=== PATIENT | male | born 1965 | race Caucasian/White ===

== ENCOUNTER → 2020-01-13 08:58 | Outpatient (CLI) | payer OTHER, SELFPAY ==
--- NOTE | 2020-01-13 09:06 | RAD_ITS ---
STUDY: X-RAY - LEFT KNEE REASON FOR EXAM: Male, 54 years old. left knee pain x 3 days, no known injury TECHNIQUE: 3 view(s) of the knee. COMPARISON: None. FINDINGS: Patient has undergone previous ACL repair, surgical hardware in the distal femur and proximal tibia free of complication. Normal visualized distal femur. Normal visualized proximal tibia and fibula. Normal proximal tibiofibular articulation. There is mild degenerative arthrosis of the medial femorotibial compartment. There is mild degenerative arthrosis of the lateral femorotibial compartment. There is mild degenerative arthrosis of the patellofemoral articulation. No demonstrated effusion there is chondrocalcinosis noted in both the medial and lateral compartments. The soft tissue structures are unremarkable. RAD/Knee 4 or More Views IMPRESSION: Tricompartmental arthrosis with chondrocalcinosis. No demonstrated fracture or suspicious osseous lesion Hardware in the distal femur and proximal tibia from previous ACL repair free of complication Electronically Signed: David Roblero MD at 9:24 EDT , Service support ,
== END ==
PROVIDERS: PCP Family Medicine; Referring Provider Family Medicine; Visit Provider Family Medicine
DX: Z00.00 Encounter for general adult medical examination without abnormal findings (principal); M25.562 Pain in left knee
CPT/HCPCS: 73564

== ENCOUNTER 2020-03-08 05:29 | Day surgery (SDC) | payer OTHER, SELFPAY ==
[2020-03-08] VITALS (8 sets, daily range): BP systolic 128–185; BP diastolic 83–119; PULSE 70–93; RESP 16; TEMP 36.3–36.7; O2SAT 94–100
--- NOTE | 2020-03-08 05:59 | PCM.HP.STD ---
Problem List (1) Screening for intestinal cancer Status: Acute History of Present Illness Date of Admission: 03/08/20 The patient is a 54 year old M who presents for screening colonoscopy today. He has never had a previous colonoscopy. The only previous abdominal surgery that he has had was a remote appendectomy. He otherwise he states he enjoys good health except for degenerative joint disease. He denies cardiac and pulmonary or renal disease. Denies DVT. Denies family history of colon cancer. No abdominal pain no bright red blood per rectum or melena Past Medical History Allergies No Known Allergies Allergy (Verified 02/26/20 11:03) Home Medications: Ambulatory Orders Medication Instructions Recorded NK 02/26/20 Smoking Status: Never smoker Tobacco Use: Chew Review of Systems Constitutional: Denies: Fever Cardiovascular: Denies: Chest Pain Respiratory: Denies: Shortness of Breath Gastrointestinal: Denies: Abdominal Pain, Melena Endocrine: Denies: Change in Body Habitus VTE Information - Inpt Only VTE Present on Admission: No Patient Problems: Active and Suspected Problems Screening for intestinal cancer (Acute) - Physical Exam Vitals/I&O's: Vital Signs Temp Pulse Resp BP Pulse Ox 97.6 F L 73 16 152/103 H 99 03/08/20 05:47 03/08/20 05:47 03/08/20 05:47 03/08/20 05:47 03/08/20 05:47 Oxygen Delivery Method Room Air General: Alert, Oriented x3, Cooperative, No apparent distress Oral: Moist Mucosa Lungs: Clear to auscultation, Normal air movement Cardiovascular: Regular rate, Regular Rhythm Abdomen: Bowel Sounds Present, Soft, Non Tender Extremities: No Calf Tenderness Psych/Mental Status: Normal Affect Assessment/Plan All Active Problems Screening for intestinal cancer (Acute) Lumbosacral strain (Acute) I propose for the patient a screening colonoscopy with possible biopsy or polypectomy is indicated. He is aware of the technique, benefit, risks, alternatives. He has had an opportunity to ask and have questions answered. He presents via open access today. We will proceed at his discretion. Seferino Richter M.D., F.A.C.S. Procedure Criteria Procedure Type: Elective COVID Risk Discussion: The surgeon/proceduralist and patient have discussed in detail the risk of exposure to and/or potential harm posed by the COVID-19 virus with having a surgery/procedure at this time versus the risk of delaying the surgery/procedure. It is not possible to know either the risk of delaying the surgery or procedure or chance of getting an infection with perfect accuracy, but a joint decision was made between the patient and the surgeon/proceduralist to proceed at this time with the scheduled surgery/procedure as indicated on the consent form.
[2020-03-08] MEDS: Lactated Ringers 1,000 ML 100 ML IV (06:12)
--- NOTE | 2020-03-08 06:30 | COLBX_PTH ---
PATIENT: JONAS KENT LOC: EN U#:[id number] AGE/SX: 54/M ROOM: RE03/08/[address]: Dr. Seferino Richter MD : 1965 BED: DIS: 03/08/2020 SPEC #: [id number] RECD: 03/08/20 10:41 STATUS: BETSY FLAVIO #: [id number] SANJUANITA: 03/08/20 06:[address]: Seferino Richter DEPT: SURGICAL PATHOLOGY RECD BY: Dwight Padilla ENTERED: 03/08/20 11:28 SP TYPE: COLON BX OTHR DR: Dr. Tate Herrera MD Tissues: Sigmoid colon biopsy Procedures: Surgery Specimen Level IV HEADER OPERATION: Colonoscopy - open access (MOD) PRE-OP DIAGNOSIS: Screening TISSUE SUBMITTED: Distal sigmoid polyps biopsy MICROSCOPIC DIAGNOSIS Distal sigmoid polyps, biopsy: Fragments of hyperplastic polyp. SHARMIN:alecia 03/09/20 MICROSCOPIC DESCRIPTION Slides are reviewed. GROSS DESCRIPTION Received in fixative is one container labeled with the patient's name and designated distal sigmoid polyp biopsy. The specimen consists of multiple irregular fragments of light frost soft tissue that in aggregate measure 1.5 x 0.3 x 0.1 cm. The specimen is totally submitted in one cassette. / SJ:alecia 03/08/20 TC:1 CPT: 22057
--- NOTE | 2020-03-08 06:52 | OP.CCLET_ITS ---
03/08/2020 Bro Herrera [address] [place] [address] Re : Colonoscopy procedure for Siva Lund Dear Dr. Herrera This procedure was performed on Sunday, March 08, 2020. My impressions and recommendations are as follows: Impressions : - Hemorrhoids found on perianal exam. - Two 3 to 5 mm polyps in the distal sigmoid colon, removed with a cold biopsy forceps. Resected and retrieved. - Diverticulosis in the sigmoid colon. Recommendations : - Discharge patient to home. - Resume previous diet. - Continue present medications. - Repeat colonoscopy in 5 years for surveillance based on pathology results. - Telephone my office for pathology results in 1 week. My findings are described in the full procedure note, which is enclosed. If I can be of further assistance, please feel free to contact me at Doctor phone number(s): Work: . Sincerely, Seferino Richter MD 03/08/2020 6:52:07 AM This report has been signed electronically.
--- NOTE | 2020-03-08 06:52 | OP.COLON_ITS ---
Patient Name: Siva Lund Procedure Date: 03/08/2020 6:10 AM Date of : 1965 Age: 54 Procedure: Colonoscopy Indications: Screening for colorectal malignant neoplasm Providers: Seferino Richter MD Referring MD: Bro Herrera Medicines: Midazolam 4 mg IV, Meperidine 100 mg IV Patient Profile: Last Colonoscopy: none. The patient's first colonoscopy is today. Complications: No immediate complications. Procedure: Pre-Anesthesia Assessment: - Prior to the procedure, a History and Physical was performed, and patient medications and allergies were reviewed. The patient's tolerance of previous anesthesia was also reviewed. The risks and benefits of the procedure and the sedation options and risks were discussed with the patient. All questions were answered, and informed consent was obtained. Prior Anticoagulants: The patient has taken no previous anticoagulant or antiplatelet agents. ASA Grade Assessment: II - A patient with mild systemic disease. After reviewing the risks and benefits, the patient was deemed in satisfactory condition to undergo the procedure. After I obtained informed consent, the scope was passed under direct vision. Throughout the procedure, the patient's blood pressure, pulse, and oxygen saturations were monitored continuously. The adult colonoscope was introduced through the anus and advanced to the cecum, identified by appendiceal orifice and ileocecal valve. The colonoscopy was performed without difficulty. The patient tolerated the procedure well. The quality of the bowel preparation was good. The ileocecal valve and the appendiceal orifice were photographed. Moderate Sedation: Moderate (conscious) sedation was personally administered by the endoscopist. The following parameters were monitored: oxygen saturation, heart rate, blood pressure, and response to care. Total physician intraservice time was 15 minutes. Scope In: 6:31:25 AM Scope Withdrawal Time 0 hours 9 minutes 44 seconds Scope Out: 6:46:00 AM Total Procedure Duration Time 0 hours 14 minutes 35 seconds Findings: Hemorrhoids were found on perianal exam. Normal prostate Two sessile polyps were found in the distal sigmoid colon. The polyps were 3 to 5 mm in size. These polyps were removed with a cold biopsy forceps. Resection and retrieval were complete. A few diverticula were found in the sigmoid colon. Impression: - Hemorrhoids found on perianal exam. - Two 3 to 5 mm polyps in the distal sigmoid colon, removed with a cold biopsy forceps. Resected and retrieved. - Diverticulosis in the sigmoid colon. Recommendation: - Discharge patient to home. - Resume previous diet. - Continue present medications. - Repeat colonoscopy in 5 years for surveillance based on pathology results. - Telephone my office for pathology results in 1 week. Procedure Code(s): --- Professional --- 60663, Colonoscopy, flexible; with biopsy, single or multiple 20143, 59, Moderate sedation services provided by the same physician or other qualified health child care assistant performing the diagnostic or therapeutic service that the sedation supports, requiring the presence of an independent trained observer to assist in the monitoring of the patient's level of consciousness and physiological status; initial 15 minutes of intraservice time, patient age 5 years or older Diagnosis Code(s): --- Professional --- Z12.11, Encounter for screening for malignant neoplasm of colon K64.9, Unspecified hemorrhoids D12.5, Benign neoplasm of sigmoid colon K57.30, Diverticulosis of large intestine without perforation or abscess without bleeding CPT copyright 2017 [employer]. All rights reserved. The codes documented in this report are preliminary and upon medical biller coder review may be revised to meet current compliance requirements. Seferino Richter MD 03/08/2020 6:52:07 AM This report has been signed electronically. Number of Addenda: 0 Note Initiated On: 03/08/2020 6:10 AM
== END 2020-03-08 07:40 | disposition home or self-care (01) ==
LOC: EN 05:30 → AC 05:31
PROVIDERS: Anesthesiology; PCP Family Medicine; Referring Provider Family Medicine; Visit Provider Surgery
PROC: 0DJD8ZZ Inspection of Lower Intestinal Tract, Via Natural or Artificial Opening Endoscopic (ICD-10-PCS; CPT 45378; principal; 2020-03-08 06:25)
DX: Z12.11 Encounter for screening for malignant neoplasm of colon (principal); Z11.59 Encounter for screening for other viral diseases; M19.90 Unspecified osteoarthritis, unspecified site; F17.220 Nicotine dependence, chewing tobacco, uncomplicated; K57.30 Diverticulosis of large intestine without perforation or abscess without bleeding; K64.9 Unspecified hemorrhoids; K63.5 Polyp of colon
CPT/HCPCS: 45380; 87635; 88305; 94799; 99152; 99153; J7120; U0003

== ENCOUNTER → 2020-03-15 09:40 | Outpatient (CLI) | payer OTHER, SELFPAY ==
[2020-03-15 12:31] LABS: Vitamin D,25 Hydroxy 29.9 ng/mL
[2020-03-15 12:49] LABS: Anion Gap 4 (5-15); BUN 14 mg/dL (7-18); BUN/Creat Ratio 16.9 RATIO (10-20); Calcium,Total 8.9 mg/dL (8.5-10.1); Chloride 109 mmol/L (98-107); Cholesterol 222 mg/dL (200); Creatinine, Serum 0.83 mg/dL (0.70-1.30); EST Glomerular Filtration Rate 104 mL/min (>60); Est Glom Filt Rate - Afr Amer 125 mL/min (>60); Glucose 95 mg/dL (74-106); High Density Lipoprotein 49 mg/dL; Potassium 4.3 mmol/L (3.5-5.1); Sodium Level 139 mmol/L (136-145); Thyroid Stim Hormone (TSH) 2.22 uIU/mL (0.358-3.74); Triglycerides 185 mg/dL; Very Low Density Lipoprotein 37 mg/dL (5-40)
== END ==
PROVIDERS: PCP Family Medicine; Referring Provider Family Medicine; Visit Provider Family Medicine
DX: I10 Essential (primary) hypertension (principal); R53.83 Other fatigue
CPT/HCPCS: 36415; 80048; 80061; 82306; 84403; 84443

== ENCOUNTER → 2020-03-25 15:48 | Outpatient (CLI) | payer OTHER, SELFPAY ==
--- NOTE | 2020-03-25 15:51 | RAD_ITS ---
STUDY: X-RAY - LEFT FOOT CLINICAL: Male, 54 years old. Hallux valgus bunion bilateral TECHNIQUE: 3 view(s) of the foot. COMPARISON: None. FINDINGS: Normal talus, calcaneus, and tarsal bones. Normal visualized subtalar, talonavicular, calcaneocuboid, tarsal and tarsometatarsal articulations. Normal metatarsi. There is degenerative arthrosis of the metatarsophalangeal joint of the hallux with a hallux valgus deformity. Normal tibial and fibular sesamoid bones. Normal interphalangeal joint of the great toe. Normal phalanges of the great toe. Normal second through fifth metatarsophalangeal joints. Normal interphalangeal joints and phalanges of the lesser toes. The soft tissue structures are unremarkable. RAD/Foot min 3 Views IMPRESSION: Hallux valgus deformity. Electronically Signed: Amish Gaffney, at 10:13 EDT , Service support ,
--- NOTE | 2020-03-25 15:51 | RAD_ITS ---
STUDY: X-RAY - RIGHT FOOT CLINICAL: Male, 54 years old. Hallux valgus bunion bilateral TECHNIQUE: 3 view(s) of the foot. COMPARISON: None. FINDINGS: Small plantar spur. Normal visualized subtalar, talonavicular, calcaneocuboid, tarsal and tarsometatarsal articulations. Normal metatarsi. There is a hallux valgus deformity. There is a bipartite tibial sesamoid. Normal interphalangeal joint of the great toe. Normal phalanges of the great toe. Normal second through fifth metatarsophalangeal joints. Normal interphalangeal joints and phalanges of the lesser toes. The soft tissue structures are unremarkable. RAD/Foot min 3 Views IMPRESSION: Hallux valgus deformity. Small plantar spur. Electronically Signed: Amish Gaffney, at 10:12 EDT , Service support ,
== END ==
PROVIDERS: PCP Family Medicine; Referring Provider Podiatrist; Visit Provider Podiatrist
DX: M20.11 Hallux valgus (acquired), right foot (principal); M20.12 Hallux valgus (acquired), left foot
CPT/HCPCS: 73630

== ENCOUNTER 2020-04-15 10:53 | Emergency (ER) | payer OTHER, SELFPAY ==
[2020-04-15 10:55] VITALS: BP 148/92; PULSE 82; RESP 16; TEMP 36.3; O2SAT 97; BMI 36.1
--- NOTE | 2020-04-15 11:07 | ED.VIS.GEN ---
History of Present Illness Chief Complaint: Flank Pain Informant: Patient Onset: Days - 6 days Context: Gradual Onset Timing: Waxes and wanes Current Severity: Mild Maximum Severity: Moderate Narrative: She presents with a 6-day history of right flank pain. He states it started last Sunday. He had been on a long car ride to [place]. Pain worsened Sunday and he laid in bed Sunday and Sunday. He states seem to be better when he was laying on his right side. He thought pain was better yesterday but worsened again today. He denies nausea or vomiting. He states his urine did look somewhat cloudy. No dysuria or obvious hematuria. He thought he was constipated and took some MiraLAX and Dulcolax. After multiple bowel movements pain was still worse this morning. Patient denies known history of kidney stones. He has had a prior appendectomy. Past Medical History - Allergies and Home Meds Allergies/Adverse Reactions: Allergies No Known Allergies Allergy (Verified 04/15/20 10:54) Primary Care Physician: Bro Herrera MD [Primary Care Provider] - Prior records reviewed: Yes Surgical History: appendectomy Lives: Spouse/ Significant Other Smoking Status: Never smoker Review of Systems General: Denies: Chills, Fever Eyes: Denies: Visual changes - bilaterally ENT: Denies: Bilateral ear pain Cardiovascular: Denies: Chest pain Respiratory: Denies: Dyspnea, Cough Gastrointestinal: Reports: Abdominal pain. Denies: Nausea, Vomiting, Diarrhea Genitourinary: Denies: Dysuria Musculoskeletal: Reports: Back pain - Right flank. Denies: Extremity Pain Skin: Denies: Rash Hematologic: Denies: Easy bruising, Easy bleeding Allergy: Denies: Uticaria Physical Exam Vital Signs/Narrative: Vital Signs Temp Pulse Resp BP Pulse Ox 04/15/20 10:55 97.4 F L 82 16 148/92 H 97 Inital Vital Signs reviewed: Yes General: Well nourished, Well developed Head: Normocephalic ENT: Moist mucous membranes Neck: Supple Cardiovascular: Regular rate, Regular rhythm Respiratory: No distress, CTA bilaterally Abdomen: Soft, Normal bowel sounds, Tender Back: Nontender. Negative for: CVA tenderness Skin: Normal color Neurological: Alert, Oriented x3 Psychological: Normal affect Diagnostic/Tx/Re-eval Impressions Abdomen/Pelvis CT 04/15/20 11:27 IMPRESSION: Right basilar atelectasis and/or infiltration. Low-level density seen within the gallbladder lumen suggestive of either sludge or gallstones. Correlation with ultrasound is recommended. Coronary artery calcification. Electronically Signed: Amish Gaffney, at 12:13 EDT , Service support , 04/15/20 11:27 Abdomen/Pelvis without Cont [CT] Stat Laboratory Results 04/15/20 04/15/20 04/15/20 11:14 11:14 12:50 WBC 8.1 RBC 5.53 Hgb 16.4 Hct 49.6 MCV 89.7 MCH 29.7 MCHC 33.1 RDW Std Deviation 45.8 H RDW Coeff of Jhonatan 13.9 Plt Count 251 MPV 10.1 Immature Gran % (Auto) 0.500 Neut % (Auto) 65.7 Lymph % (Auto) 26.3 Forest % (Auto) 6.7 Eos % (Auto) 0.6 Baso % (Auto) 0.2 Absolute Neuts (auto) 5.3 Absolute Lymphs (auto) 2.12 Nucleated RBC % 0 Sodium 139 Potassium 4.2 Chloride 105 Carbon Dioxide 29.0 Anion Gap 5 BUN 19 H Creatinine 0.99 Estim Creat Clear Calc 87.28 Est GFR (MDRD) Af Amer 102 Est GFR (MDRD) Non-Af 84 BUN/Creatinine Ratio 19.2 Glucose 115 H Calcium 9.6 Urine Color Yellow Urine Clarity Clear Urine pH 5.0 Ur Specific Douglas 1.020 Urine Protein 15 H Urine Glucose (UA) Normal Urine Ketones Negative Urine Occult Blood Negative Urine Nitrite Negative Urine Bilirubin Negative Urine Urobilinogen Normal Ur Leukocyte Esterase 25 H Urine RBC 0 SEEN Urine WBC 0-5 SEEN Ur Squamous Epith Cells 0-5 SEEN Urine Bacteria 1+ Urine Mucus 0 SEEN - Medical Decision Making Was given Toradol here. He did not want anything stronger as he was driving himself. Test results are discussed with patient and . There is some gallbladder sludge noted, however the patient's location of pain and presentation is not consistent with gallbladder disease. Pain is in the right lateral lower flank region. It is changed with movement and better when lying still. I think this is likely musculoskeletal in nature. Patient will be given prednisone and naproxen as well as Flexeril. He will follow-up with PCP if not improving. ED Disposition - Plan for ED Patient: Disposition: Home or Assisted Living Diagnosis: Flank pain Instructions: ED Flank Pain Uncertain Cause Prescriptions: Prednisone [Deltasone] 40 mg PO DAILY #10 tab Transmission Status: Pending to [facility] cycloBENZAPRine HCl [Flexeril] 10 mg PO TID PRN #20 tab PRN Reason: Muscle Spasm Transmission Status: Pending to [facility] Naproxen [Naprosyn] 500 mg PO BID PRN PRN #20 tab PRN Reason: Pain Score 4-10/10 Transmission Status: Pending to [facility] Referrals: Bro Herrera MD [Primary Care Provider] - 1 Week if not improving
[2020-04-15] MEDS: Ketorolac 30 MG/ML Syringe IV (11:17)
[2020-04-15] MEDS: 0.9% Normal Saline 1,000 ML 150 ML IV (11:20)
[2020-04-15 11:23] LABS: Absolute Lymphocyte Count 2.12 X10^3/uL (0.83-4.51); Absolute Neutrophil Count 5.3 X10^3/uL (2.0-7.7); Basophil# 0.02 X10^3/uL; Basophil% 0.2 % (0-1); Eosinophil# 0.05 X10^3/uL; Eosinophils% 0.6 % (0-5); Hematocrit 49.6 % (40-54); Hemoglobin 16.4 g/dL (13.0-16.5); Lymphocyte # 2.12 X10^3/ul (4.0); Lymphocyte % 26.3 % (19-41); Mean Corp Hgb Conc 33.1 g/dL (32-36); Mean Corpuscular Hgb 29.7 pg (27.0-32.0); Mean Corpuscular Volume 89.7 fL (80-94); Mean Platelet Vol. 10.1 fl (6.2-12.0); Monocyte# 0.54 X10^3/uL; Monocyte% 6.7 % (0-10); NRBC Flagged by Analyzer 0 % (0-5); Neutrophil # 5.29 X10^3/uL (2.7-7.7); Neutrophil % 65.7 % (47-70); Platelet Count 251 K/mm3 (150-450); RBC Distribution Width CV 13.9 % (11.6-14.6); RBC Distribution Width SD 45.8 fl (35.1-43.9); Red Blood Count 5.53 M/mm3 (4.6-6.2); White Blood Count 8.1 K/mm3 (4.4-11.0)
--- NOTE | 2020-04-15 11:27 | CT_ITS ---
STUDY: CT ABDOMEN AND PELVIS WITHOUT CONTRAST REASON FOR EXAM: Male, 54 years old. RIGHT FLANK PAIN RADIATION DOSAGE (If Supplied By Facility): CTDIvol = ( 19.58 ) mGy, DLP = ( 1086.03 ) mGycm TECHNIQUE: Transaxial images were obtained from the dome of the diaphragm to the symphysis pubis without oral contrast, and without intravenous contrast. Sagittal and coronal images were reconstructed. Individualized dose optimization techniques were used for this CT. COMPARISON: None. FINDINGS: Calcified bilateral hilar lymph nodes. Coronary artery calcifications. Increased linear markings at the right lung base suggestive of a right basilar infiltration and/or scarring. Increased densities within the gallbladder lumen suggestive of either small gallstones or sludge. Correlation with ultrasound is recommended. Normal spleen. Normal pancreas. Normal bilateral adrenal glands. Normal right kidney. Normal left kidney. Normal visualized stomach. Normal small intestine. Normal colon. There are surgical clips in the region of the appendix consistent with a prior appendectomy. There is scattered atherosclerotic calcification of the abdominal aorta, without a demonstrated aneurysm. Normal inferior vena cava. Normal retroperitoneum. Normal urinary bladder. There is a small umbilical hernia containing fat. There are mild degenerative changes of the visualized lumbar spine. CT/Abdomen/Pelvis without Cont IMPRESSION: Right basilar atelectasis and/or infiltration. Low-level density seen within the gallbladder lumen suggestive of either sludge or gallstones. Correlation with ultrasound is recommended. Coronary artery calcification. Electronically Signed: Amish Gaffney, at 12:13 EDT , Service support ,
[2020-04-15 11:32] LABS: Anion Gap 5 (5-15); BUN 19 mg/dL (7-18); BUN/Creat Ratio 19.2 RATIO (10-20); Calcium,Total 9.6 mg/dL (8.5-10.1); Chloride 105 mmol/L (98-107); Creatinine, Serum 0.99 mg/dL (0.70-1.30); EST Glomerular Filtration Rate 84 mL/min (>60); Est Glom Filt Rate - Afr Amer 102 mL/min (>60); Estimated Creatinine Clearance 87.28 ml/min; Glucose 115 mg/dL (74-106); Potassium 4.2 mmol/L (3.5-5.1); Sodium Level 139 mmol/L (136-145)
[2020-04-15 13:00] VITALS: BP 159/94; PULSE 58; RESP 16; O2SAT 98
[2020-04-15 13:01] LABS: Mucous, Urine 0 SEEN /hpf (<or=2+); Red Blood Cells-Urine 0 SEEN /hpf (0-5)
[2020-04-15 13:09] LABS: Color, Urine Yellow (Yellow); Glucose, Dipstick Normal (Normal); Ketone-Dipstick Negative (Negative); Leukocyte Esterase-Dipstick 25 /ul (Negative); Nitrite-Dipstick Negative (Negative); Occult Blood-Urine Negative /ul (Negative); Protein-Dipstick 15 mg/dl (Negative); Urine Bilirubin Dipstick Negative (Negative); Urine Clarity Clear (Clear); Urine Urobilinogen Normal (Normal)
[2020-04-15 13:20] LABS: Bacteria 1+ /hpf (None Seen); Squamous Epithelial Cells - UA 0-5 SEEN /hpf (0-5); White Blood Cells 0-5 SEEN /hpf (0-5)
[2020-04-15 13:55] VITALS: BP 159/94; PULSE 58; RESP 16; O2SAT 98
== END 2020-04-15 13:55 | disposition home or self-care (01) ==
PROVIDERS: Emergency Provider Emergency Medicine; PCP Family Medicine
DX: R10.9 Unspecified abdominal pain (principal)
CPT/HCPCS: 74176; 80048; 81001; 85025; 96374; 99283; J7030; A4216

== ENCOUNTER → 2020-05-03 06:40 | Outpatient (CLI) | payer OTHER, SELFPAY ==
[2020-04-15 10:55] VITALS: BMI 36.1
--- NOTE | 2020-05-03 17:41 | STRESSREP_ITS ---
Stress Test Report Date: 05/03/2020 Procedure: Pharmacologic stress nuclear imaging study Indications: Dyspnea Consent: Per the patient Procedure: The patient underwent pharmacologic (Regadenoson) evaluation with a peak heart rate of 108 beats per minute (64%predicted maximal heart rate) and a peak blood pressure of 160/110 mmHg. The baseline ECG demonstrated normal sinus rhythm. EKG during lexiscan infusion revealed normal sinus rhythm with about a half a millimeter horizontal to downsloping ST depressions in the inferior and lateral leads. EKG post infusion revealed no significant ischemic changes [There were no cardiac dysrhythmias pretest, during pharmacologic infusion, or recovery]. [There was no complaint of chest discomfort during pharmacologic infusion or recovery]. The examination was discontinued secondary to completion of protocol. Impression: 1. Lexiscan stress test test is negative for Lexiscan infusion induced EKG changes of ischemia. 2. Lexiscan stress test test is negative for Lexiscan infusion induced chest pain. 3. Results of the nuclear portion of the test is as below Myocardial perfusion imaging study: Technique: The patient was injected with 14.9 millicuries of technetium 99m Cardiolite and subsequently rest SPECT Cardiolite nuclear imaging was obtained in the horizontal long, vertical long, and short axis views. The patient underwent pharmacologic (Regadenoson) evaluation. Please see above for details. The patient was injected with 44.8 millicuries of technetium 99m Cardiolite and subsequently stress SPECT Cardiolite nuclear imaging was obtained in the horizontal long, vertical long, and short axis views. A gated Cardiolite study at peak stress was obtained. Interpretation: Rest and stress SPECT Cardiolite nuclear imaging status post realignment, normalization, and attenuation correction demonstrate overall normal myocardial radioisotope uptake. Gated images reveal no significant regional wall motion abnormalities. The reported LVEF is 56%. Impression: 1. There is no evidence of significant ischemia or infarction. 2. Estimated ejection fraction is 56%. This note was generated with [employer] software. It may contain incorrect words, spelling, and punctuation that were not noted in checking the note before signing.
== END ==
PROVIDERS: PCP Family Medicine; Referring Provider Family Medicine; Visit Provider Family Medicine
DX: R06.00 Dyspnea, unspecified (principal)
CPT/HCPCS: 78452; 93017; A9500; A4216; J2785

== ENCOUNTER 2020-05-04 07:30 | Outpatient (RCR) | payer OTHER, SELFPAY ==
--- NOTE | 2020-04-06 13:22 | HP.PTEVAL_ITS ---
Patient's Visit Information JONAS KENT is a 54 year old M referred to Physical Therapy by RICK CastroM with a diagnosis of HALLGUS VALGUS LEFT AND RIGHT,FOOT PAIN RIGHT AND LEFT. Date of Evaluation: 04/06/20 Physical Therapist: Raghu Owen PT, Cert MDT, OCS - Visit Plan Frequency: 1VISIT Plan: PROVIDE CUSTOM MADE ORTHOTICS - Subjective This 54 y/o male presents to physical therapy with hallgus valgus. Patient has bilateral hallgus valgus many years left worse than right .Patient has pain left worse than right on right great toe of bunion. Aggraveting factors shoes ,weather . Alleviating factors rest better shoe. - Objective POSTURE: pes planu,bilateral hallgus varus L>R. GAIT: reciprocal pattern. NEURO: intact. FLEXABLITY: MOD TIGHT G-S. AROM ANKLE: DF 0 degrees,PF 65 degrees,Inversion 35 degrees,eversion 20 degrees. MMT: ankle 5/5 - Goals Goal 1:: Patient will be provided with custum made orthotics. - Rehabilitation Potential Physical Therapy Diagnosis: This patient has bilateral hallgus valgus left > right with pain thus benifit from orthotics Rehabilitation Potential: Good - Anticipated Interventions Patient/Client Instruction: Educate patient on: Condition For the Purpose of:: To decrease pain, Other Other: ORTHOTICS Orthotics: Shoe insert For the Purpose of:: To decrease pain Thank you for the opportunity to evaluate your patient. For Medicare and Medicare HMO plans, please review the plan of care and approve it. It will need to be FAXED BACK to us at [phone] for Medicare purposes. For Medicare only, by signing this I certify the plan of care. Please let me know if there are questions or concerns regarding this plan of care. Physician Signature: Date:
--- NOTE | 2020-05-04 07:57 | HP.PTDCSUM ---
It has been my pleasure to treat JONAS KENT referred by Dr. Tr Clark DPM, with the diagnosis of HALLGUS VALGUS LEFT AND RIGHT,FOOT PAIN RIGHT AND LEFT for a total of 2 visit(s). Discharge Date: 05/04/20 Please see the following information for a summary of their discharge status. Subjective: No new c/o's Objective/Function: Provided fabricated orthotics to ensure proper fitting Goal 1:: Patient will be provided with custum made orthotics. Goal Progress: Goal Met Plan: D/C WITH ORTHOTICS Discharge Comments: PROVIDED ORTHOTIC If there are questions or concerns regarding this patient's physical therapy, please feel free to call me at [phone]. Thank you for the referral of this patient. Sincerely, Raghu Owen PT, Cert MDT, OCS
== END 2020-05-04 19:00 | disposition home or self-care (01) ==
LOC: PT 07:30
PROVIDERS: PCP Family Medicine; Referring Provider Podiatrist; Visit Provider Podiatrist
DX: M20.11 Hallux valgus (acquired), right foot (principal); M20.12 Hallux valgus (acquired), left foot
CPT/HCPCS: 97161; 97530; 97760

== ENCOUNTER → 2020-05-13 20:10 | Outpatient (CLI) | payer OTHER, SELFPAY ==
[2020-04-15 10:55] VITALS: BMI 36.1
== END ==
PROVIDERS: PCP Family Medicine; Referring Provider Internal Medicine Pulmonary Disease; Visit Provider Internal Medicine Pulmonary Disease
DX: G47.10 Hypersomnia, unspecified (principal)
CPT/HCPCS: 95810

== ENCOUNTER → 2020-05-31 13:00 | Outpatient (CLI) | payer OTHER, SELFPAY ==
--- NOTE | 2020-05-31 13:01 | CT_ITS ---
STUDY: CT CHEST WITHOUT CONTRAST REASON FOR EXAM: Male, 55 years old. CALCIFICATION OF COR ARTERY RADIATION DOSAGE (If Supplied By Facility): CTDIvol = ( 12.19 ) mGy, DLP = ( 195.04 ) mGycm TECHNIQUE: Transaxial imaging was performed without the administration of intravenous contrast material. Cardiac over read examination. Individualized dose optimization techniques were used for this CT. COMPARISON: None. FINDINGS: Linear scarring in the right lower lobe. Elevation of the right hemidiaphragm. There is no demonstrated pleural abnormality. There are calcifications of the coronary arteries. Calcification of the mediastinal lymph nodes. Bilateral hilar lymph node calcification. Normal unenhanced pulmonary arteries. Normal aorta arch and descending thoracic aorta. There are degenerative changes of the thoracic spine. There is no demonstrated abnormality of the visualized upper abdomen. CT/Limited Chest CT w/CCTA IMPRESSION: Coronary artery calcification. Calcification of mediastinal and hilar lymph nodes.. Electronically Signed: Amish Gaffney, at 15:17 EST , Service support ,
[2020-05-31 13:20] VITALS: BP 138/89; PULSE 67; RESP 16; O2SAT 94; BMI 36.1
--- NOTE | 2020-05-31 16:44 | CA.SCORE ---
Calcium Scoring Date of Study:: 05/31/20 Coronary Calcium Scoring: High-resolution Computed Tomographic imaging of the chest was performed on 05/31/2020 with particular attention paid to the coronary arteries. Images from the examination were analyzed for the presence and extent of coronary artery calcification , using coronary calcium quantification software. The patient tolerated the procedure well and there were no complications. The results of the coronary calcification analysis are provided below. - Findings Left Main (LM): 63.2 Left Anterior Descending (LAD): 0 Left Circumflex (LCX): 6.36 Right Coronary Artery (RCA): 0 Total Agatston Score: 69.56 Percentile Ranking: Percentile ranking: In a prepublished study between 50 and 75% of patients of the same gender/similar age had the same/lower scores. Calcium Scoring Interpretation: 0 No identifiable atherosclerotic plaque. Very low cardiovascular disease risk. <5% chance of presence coronary artery disease A Negative Examination 1-10 Minimal Plaque burden. Significant coronary artery disease very unlikely. 11-100 Mild plaque burden. Likely mild or minimal coronary atherosclerosis. 101-400 Moderate plaque burden Moderate non-obstructive coronary artery disease highly likely. Over 400 Extensive plaque burden. High likelihood of at least one significant coronary stenosis (>50% diameter) Calcium Score: 11 - 100 Likely mild or minimal coronary stenosis - Continue cardiovascular evaluation care as deemed appropriate.
== END ==
PROVIDERS: PCP Family Medicine; Referring Provider Family Medicine; Visit Provider Family Medicine
DX: I25.10 Atherosclerotic heart disease of native coronary artery without angina pectoris (principal)
CPT/HCPCS: 75571; 76380

== ENCOUNTER → 2020-06-14 20:44 | Outpatient (CLI) | payer OTHER, SELFPAY ==
[2020-05-31 13:20] VITALS: BMI 36.1
== END ==
PROVIDERS: PCP Family Medicine; Referring Provider Internal Medicine Pulmonary Disease; Visit Provider Internal Medicine Pulmonary Disease
DX: G47.33 Obstructive sleep apnea (adult) (pediatric) (principal)
CPT/HCPCS: 95811

== ENCOUNTER → 2021-06-07 08:51 | Outpatient (CLI) | payer OTHER, SELFPAY ==
[2021-06-07 10:21] LABS: Anion Gap 9 (5-15); BUN 19 mg/dL (7-18); BUN/Creat Ratio 23.2 RATIO (10-20); Calcium,Total 9.2 mg/dL (8.5-10.1); Chloride 104 mmol/L (98-107); Cholesterol 243 mg/dL (200); Creatinine, Serum 0.82 mg/dL (0.70-1.30); EST Glomerular Filtration Rate 104 mL/min (>60); Est Glom Filt Rate - Afr Amer 126 mL/min (>60); Glucose 102 mg/dL (74-106); High Density Lipoprotein 44 mg/dL; PSA,Total - Annual Screen 0.78 ng/mL (0.00-4.00); Potassium 4.2 mmol/L (3.5-5.1); Sodium Level 138 mmol/L (136-145); Triglycerides 166 mg/dL; Very Low Density Lipoprotein 33 mg/dL (5-40)
== END ==
PROVIDERS: PCP Family Medicine; Referring Provider Family Medicine; Visit Provider Family Medicine
DX: Z13.1 Encounter for screening for diabetes mellitus (principal); Z13.220 Encounter for screening for lipoid disorders; Z12.5 Encounter for screening for malignant neoplasm of prostate
CPT/HCPCS: 36415; 80048; 80061; 84153; G0103

== ENCOUNTER → 2022-07-06 | Outpatient (CLI) | payer OTHER, SELFPAY ==
--- NOTE | 2022-07-06 13:30 | ECHOCS_ITS ---
Reason For Study: MURMUR Procedure This was a 2D Doppler, Color Flow transthoracic echocardiogram. The study was technically difficult. Contrast injection was performed. Exam performed in department. Left Ventricle Normal LV size. The estimated ejection fraction is 55 %. Diastolic function is indeterminate. No regional wall motion abnormalities noted. Right Ventricle Normal RV size. Normal systolic function. Atria The left atrium is mildly enlarged. Normal right atrium. No doppler evidence for ASD. Mitral Valve There is no mitral valve stenosis. No mitral valve insufficiency. Tricuspid Valve There is no tricuspid stenosis. Trivial tricuspid valve insufficiency. Unable to estimate RV systolic pressure due to insufficient tricuspid regurgitant envelope. Aortic Valve The aortic valve is not well visualized. Aortic valve is not well-visualized but by Doppler criteria there appears to be moderate to severe aortic stenosis. No aortic valve insufficiency. Pulmonic Valve There is no pulmonic valvular stenosis. Trivial pulmonic valve insufficiency. Great Vessels Normal aortic root. Pericardium/Pleural No pericardial effusion. Medication 22 gauge I.V. with prn adaptor inserted into left arm. Diluted definity 2ml given slow IV push to enhance endocardial definition. MMode/2D Measurements & Calculations LVIDd: 5.3 cm IVSd: 1.2 cm LAV(MOD-sp4): 79.4 ml LVIDs: 4.1 cm LVPWd: 0.96 cm FS: 23.9 % LA A4 area: 23.3 cm2 RA A4 area: 12.2 cm2 Time Measurements MV dec time: 0.24 sec Doppler Measurements & Calculations MV E max jose: 71.0 cm/sec Lat Peak E' Jose: 7.5 cm/sec Med Peak E' Jose: 5.7 cm/sec MV A max jose: 88.0 cm/sec E/E' lat: 9.5 E/E' med: 12.4 MV E/A: 0.81 MV V2 max: 124.5 cm/sec MV dec slope: 300.0 cm/sec2 Ao V2 max: 381.5 cm/sec MV max P.2 mmHg Ao max P.3 mmHg MV V2 mean: 80.8 cm/sec Ao V2 mean: 297.7 cm/sec MV mean P.8 mmHg Ao mean P.7 mmHg MV V2 VTI: 29.8 cm Ao V2 VTI: 89.3 cm AV (velocity ratio): 0.21 LV V1 max: 89.3 cm/sec PA V2 max: 140.2 cm/sec LV V1 max P.2 mmHg PA V2 mean: 88.5 cm/sec LV V1 mean P.8 mmHg LV V1 mean: 64.2 cm/sec LV V1 VTI: 18.8 cm ECHO/Echo Complete W/ Contrast Interpretation Summary The estimated ejection fraction is 55 %. The left atrium is mildly enlarged. Aortic valve is not well-visualized but by Doppler criteria there appears to be moderate to severe aortic stenosis Diastolic function is indeterminate. Ordering Physician: Bro Herrera Referring Physician: Tate Herrera MD Performed By: Pamela Puckett RCS
== END | disposition home or self-care (01) ==
LOC: CVS 13:30
PROVIDERS: PCP Family Medicine; Visit Provider Family Medicine
DX: R01.1 Cardiac murmur, unspecified (principal)
CPT/HCPCS: 93306; Q9957; A4216; C8929

== ENCOUNTER → 2022-08-29 | Outpatient (CLI) | payer OTHER, SELFPAY | END | disposition home or self-care (01) | PROVIDERS: PCP Family Medicine; Referring Provider Internal Medicine Cardiovascular Disease; Visit Provider Internal Medicine Cardiovascular Disease | DX: Z01.818 Encounter for other preprocedural examination (principal); I35.0 Nonrheumatic aortic (valve) stenosis | CPT/HCPCS: 87426; C9803 ==

== ENCOUNTER → 2022-11-23 | Outpatient (CLI) | payer OTHER, SELFPAY ==
--- NOTE | 2022-11-22 18:03 | PCM.HP.CAR ---
HPI - General HPI Narrative JONAS KENT, is a 57 M who presents for a transesophageal echocardiogram. As you know he has no previous cardiac history who saw you for regular physical and was noted to have a heart murmur.? He has had some difficulty sleeping but that is not new and he uses a CPAP mask.? He has had some shortness of breath with exertion and occasionally coughing after eating.? As part of his work-up he underwent an echocardiographic evaluation which demonstrated an ejection fraction of 55% the aortic valve was not very well visualized but by Doppler criteria there appeared to be moderately severe aortic stenosis with a peak gradient of 59 mmHg and a mean of 39 mmHg.? He had previously had a calcium score CT scan in May 2020 demonstrating a total Agatston score of 69.5.? His lipid profile demonstrates a total cholesterol of 243 HDL of 44 and LDL of 166.? A pharmacologic myocardial perfusion stress test in April 2020 was negative.? He has had no chest pain no shortness of breath except with a severe exertion no dizziness no diaphoresis no near syncope or syncope.? His physical exam demonstrates clear lung tony regular rate and rhythm 3/6 systolic murmur noted left sternal border. FORMERLY [facility], 1928–1983 Medical History BRADEN on CPAP Home Medications atorvastatin 20 mg tablet (Lipitor) 20 mg PO DAILY #90 tabs 08/09/22 [Rx Last Taken Unknown] Allergy/AdvReac Type Severity Reaction Status Date / Time No Known Allergies Allergy Verified 08/24/22 13:03 Family History Father Myocardial infarction, Onset Age: 48 Hypertension Diabetes Surgical History H/O lumbar discectomy H/O repair of right rotator cuff History of repair of anterior cruciate ligament of left knee History of tonsillectomy History of total right knee replacement Social History Smoking Status: Never smoker Smokeless tobacco user: chewing tobacco alcohol intake: never ROS Constitutional Constitutional: Denies fever(s) or weight loss Eyes Eyes: Reports systems reviewed and no addt'l complaints, except as documented ENT HEENT: Reports systems reviewed and no addt'l complaints, except as documented Cardiovascular Cardiovascular: Denies chest pain at rest, chest pain with activity, dyspnea at rest, dyspnea on exertion, edema, palpitations or paroxysmal nocturnal dyspnea Respiratory/Chest Respiratory/Chest: Denies dyspnea on exertion, productive cough, shortness of breath at rest or shortness of breath with exertion Gastrointestinal Gastrointestinal: Denies change in bowel habits, nausea, vomiting or weight changes Genitourinary Genitourinary: Denies difficulty urinating Musculoskeletal Musculoskeletal: Denies joint stiffness or muscle weakness Integumentary Integumentary: Denies lesions Neurologic Neurologic: Denies dizziness or syncope Psychiatric Psychiatric: Denies anxiety Endocrine Endocrinology: Denies excessive sweating or fatigue Hematologic/Lymphatic Hematologic/Lymphatic: Denies anemia Allergic/Immunologic Allergic/Immunologic: Denies seasonal rhinorrhea Physical Exam Const alert, oriented x3 and no apparent distress General Appearance: cooperative HEENT hearing grossly normal bilaterally Head and Scalp: atraumatic Eyes EOMs intact bilaterally Neck General: normal visual inspection Chest inspection of chest normal and palpation of chest normal Resp normal respiratory effort Auscultation: clear to auscultation bilaterally Cardio regular rate, regular rhythm, S1 normal heart sound and S2 normal heart sound Cardio Narrative: 3/6 systolic murmur noted Jugular Venous Distention: JVD GI normal to inspection, nondistended, normoactive bowel sounds Extremity normal capillary refill and no pedal edema Peripheral Pulses: Yes pulses 2+ throughout and femoral pulses present Skin no rashes or lesions noted Neuro oriented x3 and CN's II-XII intact bilaterally Psych Appearance: grossly normal and appropriate Cardiology Labs/Tests Cardiology Labs/Tests: Rhythm: EKG: ECHO: Stress Test: Cardiac Cath: PCI: CT Surgery: Holter monitor: EPS: PPM: CXR: Chest CT Scan: Assessment & Plan Assessment/Plan (1) Nonrheumatic aortic (valve) stenosis: PLAN: Plan (1) Nonrheumatic aortic (valve) stenosis: ?Status:?Acute ?Plan: He appears to have a history of severe aortic stenosis.? I suspect that the above may be a bicuspid valve and therefore I will recommend that we perform a STACEY to evaluate the above.? Depending on the findings further recommendations will be made.? In addition due to his elevated calcium score I would suggest that we add Lipitor 20 mg a day to his regimen
--- NOTE | 2022-11-23 08:47 | ECHOTEE_ITS ---
Reason For Study: Murmur Medication STACEY probe 6VT-D (SN [id number]) passed with minimal difficulty. No complications were noted. Cetacaine Topical [place] given X3 orally. Versed 2 mg given slow IVP. Fentanyl 50 mcg given slow IVP. Performed a rapid injection of agitated mix of 9 cc saline and 1cc air to assess for atrial septal defect. Left Ventricle Normal LV size. Left ventricular systolic function is normal. The estimated ejection fraction is 60 %. No regional wall motion abnormalities noted. Right Ventricle Normal RV size. Normal systolic function. The right ventricular wall motion is normal. Atria Normal atrial septum. Bubble contrast study negative for right to left interatrial shunt. Normal left atrium. No thrombus is detected in the left atrial appendage. Normal right atrium. Mitral Valve Normal mitral valve. Mild (1+) eccentric mitral valve insufficiency. Aortic Valve Bicuspid aortic valve. Moderate focal aortic valve calcification. Moderate restriction of the aortic valve. Pulmonic Valve Normal pulmonic valve. Vessels Normal aortic root. Mild atherosclerosis of the aortic arch. The pulmonary artery is normal size. Pericardium No pericardial effusion. ECHO/Echo Transesophageal (STACEY) Interpretation Summary Normal LV size. Left ventricular systolic function is normal. The estimated ejection fraction is 60 %. Moderate focal aortic valve calcification. Bicuspid aortic valve. No thrombus is detected in the left atrial appendage. Bubble contrast study negative for right to left interatrial shunt. Moderate restriction of the aortic valve. Ordering Physician: Carlos Diggs Referring Physician: Tate Herrera Performed By: Kye Velasco RCS
== END | disposition home or self-care (01) ==
LOC: PSN 10:26
PROVIDERS: PCP Family Medicine; Referring Provider Internal Medicine Cardiovascular Disease; Visit Provider Internal Medicine Cardiovascular Disease
DX: I35.0 Nonrheumatic aortic (valve) stenosis (principal)
CPT/HCPCS: 87426; 93312; 93320; 93325; C9803; J7040; A4216

== ENCOUNTER 2022-12-08 06:46 | Day surgery (SDC) | payer OTHER, SELFPAY ==
--- NOTE | 2022-12-06 14:43 | RAD_ITS ---
INDICATION: bicuspid aortic valve EXAMINATION/TECHNIQUE: X-RAY - XR Chest 2 Views COMPARISON: Chest CT 05/31/2020. Findings: Frontal and lateral views of the chest. LUNG PARENCHYMA: No acute focal airspace disease or significant mass lesion. Left lung base densely calcified granulomas. PLEURA: Again noted elevation of the right hemidiaphragm. No pleural effusion. No pneumothorax. HEART/GREAT VESSELS: Cardiomediastinal silhouette is not enlarged. Bilateral calcified hilar granulomas. BONES: Osseous structures are unremarkable for age. RAD/Chest PA and Lateral IMPRESSION: Chest with no acute disease. Electronically Signed: Jovan Melo MD at 23:11 EDT ,
[2022-12-06 14:52] LABS: Absolute Lymphocyte Count 2.04 X10^3/uL (0.83-4.51); Absolute Neutrophil Count 5.8 X10^3/uL (2.0-7.7); Basophil# 0.03 X10^3/uL; Basophil% 0.4 % (0-1); Eosinophil# 0.08 X10^3/uL; Eosinophils% 0.9 % (0-5); Hematocrit 45.7 % (40-54); Hemoglobin 15.4 g/dL (13.0-16.5); Lymphocyte # 2.04 X10^3/ul (0.83-4.51); Lymphocyte % 24.2 % (19-41); Mean Corp Hgb Conc 33.7 g/dL (32-36); Mean Corpuscular Volume 88.9 fL (80-94); Mean Platelet Vol. 10.2 fl (6.2-12.0); Monocyte# 0.48 X10^3/uL; Monocyte% 5.7 % (0-10); NRBC Flagged by Analyzer 0 % (0-5); Neutrophil # 5.78 X10^3/uL (2.7-7.7); Neutrophil % 68.4 % (47-70); Platelet Count 240 K/mm3 (150-450); RBC Distribution Width CV 14.4 % (11.6-14.6); RBC Distribution Width SD 46.8 fl (35.1-43.9); Red Blood Count 5.14 M/mm3 (4.6-6.2); White Blood Count 8.4 K/mm3 (4.4-11.0)
[2022-12-06 15:00] LABS: Prothrombin Time (Protime)PT. 13.3 SECONDS (11.7-14.9)
[2022-12-06 15:01] LABS: Partial Thromboplast Time 28.5 Seconds (24.1-36.2)
[2022-12-06 15:31] LABS: Anion Gap 6 (5-15); BUN 21 mg/dL (7-18); Calcium,Total 9.2 mg/dL (8.5-10.1); Chloride 109 mmol/L (98-107); EST Glomerular Filtration Rate 82 mL/min (>60); Est Glom Filt Rate - Afr Amer 100 mL/min (>60); Glucose 104 mg/dL (74-106); Potassium 3.8 mmol/L (3.5-5.1); Sodium Level 142 mmol/L (136-145)
[2022-12-07 09:24] VITALS: BMI 36.1
--- NOTE | 2022-12-08 08:32 | CL.D_ITS ---
Patient Name: JONAS KENT Study Date: 12/08/2022 Performing: Carlos Diggs MD Ht: 69 inches 175.26 cm : 1965 Wt: 245 lbs 111.13 kg Age: 57 Gender: male BSA: 2.25 PROCEDURE(S) PERFORMED DC02-(33925)C/COR CLINICAL PROFILE AND INDICATIONS Indications: Valvular Disease Heart Failure: None Stress/Imaging Stress/Image Study Performed: No CAD Presentations: No Sxs, no angina. CONCLUSIONS No significant CAD. Bicuspid aortic valve. Severe aortic stenosis RECOMMENDATIONS Surgery consult for Valve Replacement surgery Surgery consult for Valve Replacement surgery DESCRIPTION OF PROCEDURE The patient arrived to the procedure lab. The risks and benefits of the procedure as well as a full description of our services here and current unavailability of surgical backup were fully explained to the patient and/or their significant other prior to the catheterization. The Timeout was completed, verifying the correct patient and procedure. The patient's procedural site was prepped and draped in the usual fashion. Local anesthetic was given subcutaneously to right radial region with Lidocaine 2%. Using a modified Seldinger technique, arterial access was obtained via the right radial artery, a 6Fr sheath was inserted. Right Coronary Artery selective angiography was then performed in multiple views using a 5 Fr. 4.0 [place] catheter. Left Coronary Artery selective angiography was performed in multiple views using a 5 Fr. 4.0 [place] catheter.The arterial sheath was pulled and a TR Band was applied for hemostasis CORONARY ANGIOGRAPHY DOMINANCE: Left Dominant LEFT HEART ASSESSMENT Left Ventricular Ejection Fraction: by Echo 60 % Normal LV wall motion Normal Left Ventricular systolic function LEFT MAIN: Angiographically normal LEFT ANTERIOR DESCENDING ARTERY: No significant stenotic lesions noted in an otherwise small vessel. CIRCUMFLEX ARTERY: Large dominant vessel with no significant stenosis present. RIGHT CORONARY ARTERY: Nondominant. VALVE FINDINGS: Aortic Valve Calcification - moderate Aortic Valve Stenosis - severe COMPLICATIONS No Complications PROCEDURE MEDICATIONS Versed 1 mg IV Fentanyl 50 mcg IV Versed 1 mg IV Oxygen: 2 L/min via nasal cannula Aspirin (325mg) 1 Tabs PO @ 12/08/2022 07:04:32 SUMMARY OF HEMODYNAMIC DATA Time AIR REST ECG 07:02:36 AO 134/95 (110) SA 08:08:19 AIR REST 08:26:24 Signed By Carlos Diggs MD On 12/08/2022 08:31:01 Carlos Diggs MD
== END 2022-12-08 10:05 | disposition home or self-care (01) ==
PROVIDERS: PCP Family Medicine; Referring Provider Internal Medicine Cardiovascular Disease; Visit Provider Internal Medicine Cardiovascular Disease
DX: I35.0 Nonrheumatic aortic (valve) stenosis (principal); R06.02 Shortness of breath; G47.33 Obstructive sleep apnea (adult) (pediatric); F17.220 Nicotine dependence, chewing tobacco, uncomplicated; Z79.899 Other long term (current) drug therapy
CPT/HCPCS: 36415; 71046; 80048; 85025; 85610; 85730; 93454; 99152; 99153; J7040; C1769; C1894; Q9967

== ENCOUNTER → 2023-04-09 | Outpatient (CLI) | payer OTHER, SELFPAY ==
--- NOTE | 2023-04-09 06:37 | CDU_ITS ---
Reason For Study: DIZZINESS Rt. Velocities/BP Lt. Velocities/BP Prox CCA 88.6/20.4 cm/sec. Prox CCA 90.2/26.8 cm/sec. Mid CCA 73.2/25.9 cm/sec. Mid CCA 82.7/28.1 cm/sec. Dist CCA 65.5/20.4 cm/sec. Dist CCA 90.2/35.5 cm/sec. Prox ICA 76.5/29.2 cm/sec. Prox ICA 105.2/39.5 cm/sec. Mid ICA 75.4/30.3 cm/sec. Mid ICA 110.7/43.1 cm/sec. Dist ICA 71.0/25.9 cm/sec. Dist ICA 74.4/21.6 cm/sec. Rt. ICA/CCA = 76.5/73.2=1.0. Lt. ICA/CCA = 82.7/110.7=1.3. Prox ECA 94.1/16.0 cm/sec. Prox ECA 111.3/29.3 cm/sec. Rt. Vert. 45.0/16.6 cm/sec. Lt. Vert. 25.0/9.9 cm/sec. Right Extracranial There is intimal thickening but no significant atherosclerotic plaque noted in the right common carotid artery. There is heterogeneous, smooth atherosclerotic plaque noted in the right internal carotid artery. There is no significant atherosclerotic plaque noted in the right external carotid artery. Antegrade flow is noted in the right vertebral artery. Left Extracranial There is intimal thickening but no significant atherosclerotic plaque noted in the left common carotid artery. There is heterogeneous, irregular atherosclerotic plaque noted in the left internal carotid artery. There is no significant atherosclerotic plaque noted in the left external carotid artery. Antegrade flow is noted in the left vertebral artery. Procedure Carotid Duplex [id number]. This is a Carotid Duplex examination using B-mode, color flow and specral Doppler. Exam performed in department. VL/Carotid Duplex Ultrasound Interpretation Summary Mild (<50%) stenosis right extracranial internal carotid. Mild (<50%) stenosis left extracranial internal carotid. Patent and antegrade vertebrals bilaterally. Ordering Physician: KARIN ROBLERO Referring Physician: Tate Herrera Performed By: Cathryn Ashley RDCS, RVT
--- NOTE | 2023-04-10 10:25 | PFT_ITS ---
INTRODUCTION: The patient is a 57-year-old male who presents for pulmonary function studies for preoperative evaluation. Respiratory therapy reported good patient effort. Bronchodilators were used during testing. INTERPRETATION: Forced expiration spirometry demonstrates no evidence of a large airways obstructive ventilatory defect. There was no significant response to ae rosolized bronchodilators. Spirograms are of good quality and plateau normally. Body plethysmography was performed and revealed lung volumes to be within normal limits. Diffusing capacity by single breath CO was also within normal limits. IMPRESSION: Grossly normal pulmonary function studies.
== END | disposition home or self-care (01) ==
LOC: CVS 06:35
PROVIDERS: PCP Family Medicine
DX: Z01.818 Encounter for other preprocedural examination (principal); R42 Dizziness and giddiness; F17.220 Nicotine dependence, chewing tobacco, uncomplicated
CPT/HCPCS: 93880; 94060; 94726; 94729

== ENCOUNTER 2023-08-15 14:27 | Emergency (ER) | payer OTHER, SELFPAY ==
[2023-08-15 14:28] VITALS: BP 150/109; PULSE 119; RESP 18; TEMP 37.7; O2SAT 98
[2023-08-15 14:30] VITALS: TEMP 37
[2023-08-15 14:32] VITALS: O2SAT 95
--- NOTE | 2023-08-15 14:35 | RAD_ITS ---
STUDY: X-RAY CHEST REASON FOR EXAM: Male, 58 years old. 3 day history of chest pain. TECHNIQUE: Single AP portable view of the chest. COMPARISON: Comparison is made with prior study dated December 06, 2022. FINDINGS: Stable elevation of the right hemidiaphragm. Mild increased linear markings at the lung bases suggestive of basilar atelectasis. Sternal cerclage wires and vascular clips are present from a prior sternotomy and coronary artery bypass graft procedure (CABG). Normal mediastinum and jarret. Normal visualized pulmonary arteries. Normal visualized aortic arch and descending thoracic aorta. Normal visualized thoracic spine. Normal visualized ribs, clavicles, and shoulders. There is no demonstrated abnormality of the visualized soft tissue structures of the upper abdomen. RAD/Chest 1 View (Portable) IMPRESSION: Stable elevation of the right hemidiaphragm with some findings suggestive of mild degree of bibasilar linear atelectasis. Electronically Signed: Amish Gaffney MD at 15:06 EST ,
--- NOTE | 2023-08-15 14:53 | ED.VIS.CHEST ---
HPI History of Present Illness Chief Complaint: Chest Pain Informant: patient and spouse/S.O. Onset/Context/Timing Onset: Days Activity at onset: gradual Timing: Intermittent Current Severity: Mild Maximum Severity: Mild Worsened By: Breathing Relieved By: Nothing Associated Symptoms: Positive for Dyspnea; Negative for Nausea, Vomiting, Diaphoresis, Cough, Fever, Lightheadedness, Acid Reflux or Palpitations Narrative Narrative: 58-year-old male recently aortic valve replaced at [facility] first week in May about 3 months ago. He is on aspirin no other thinners. Porcine valve. States that he has had chest discomfort the last several days. Improves with Motrin and then returns. Worse with deep breathing. No hemoptysis. No leg pain or swelling. No history of DVT or PE. No history of coronary disease. Denies cough. Mild shortness of breath. Prior Similar Symptoms: No Recent Illness/Hospitalization: Yes CVD Risk Factors: Negative for Hypertension or Diabetes PE Risk Factors: Negative for Recent Travel/Surgery, Prior DVT or PE, Cancer or OCP + Smoking + >/=35 TAD Risk Factors: Negative for Marfan's Syndrome, Hypertension or Family History [facility] Medical History BRADEN on CPAP Home Medications atorvastatin 20 mg tablet (Lipitor) 20 mg PO DAILY #90 tabs 08/09/22 [Rx Last Taken Unknown] amoxicillin 500 mg capsule 2,000 mg (4 x 500 mg) PO .COMPLEX #4 caps 08/01/23 [Rx Last Taken Unknown] aspirin 81 mg tablet,delayed release (Adult Aspirin Regimen) 81 mg PO DAILY 08/01/23 [History Last Taken Unknown] metoprolol tartrate 50 mg tablet 25 mg PO BID 08/01/23 [History Last Taken Unknown] Allergy/AdvReac Type Severity Reaction Status Date / Time No Known Allergies Allergy Verified 08/15/23 14:28 Family History Father Myocardial infarction, Onset Age: 48 Hypertension Diabetes Surgical History H/O aortic valve replacement H/O lumbar discectomy H/O repair of right rotator cuff History of repair of anterior cruciate ligament of left knee History of tonsillectomy History of total right knee replacement Social History Smoking Status: Never smoker Smokeless tobacco user: chewing tobacco alcohol intake: never ROS ROS ED ROS Narrative No recent illness. Chest discomfort. Dyspnea. Review of Systems ROS Unobtainable: Denies due to encephalopathy Constitutional Constitutional ED: Denies chills or fever(s) Eyes Eyes: Reports none ENT ENT ED: Denies ear pain Cardiovascular Cardiovascular: Reports as per HPI, chest pain and racing heartbeat Respiratory/Chest Respiratory/Chest: Reports dyspnea and dyspnea on exertion; Denies cough Gastrointestinal Gastrointestinal: Denies abdominal pain, constipation, diarrhea, melena, nausea or vomiting Genitourinary Genitourinary ED: Denies dysuria or hematuria Musculoskeletal Musculoskeletal: Denies arthralgias, back pain, myalgias or neck pain Integumentary Denies abscess or Abrasions Neurologic Neurologic: Denies headache(s), paresthesias or weakness Psychiatric Psychiatric: Denies anxiety, depression, suicidal ideation or suicidal thoughts Endocrine Endocrinology: Denies cold intolerance, heat intolerance, polydipsia, polyphagia or polyuria Hematologic/Lymphatic Hematologic/Lymphatic: Denies easy bleeding, easy bruising or lymphadenopathy Allergic/Immunologic Allergic/Immunologic ED: Denies mouth swelling, tongue swelling or urticaria EXAM Physical Exam Narrative Exam Narrative: Well-appearing 58-year-old male. Vital signs stable afebrile. He had a temporal temperature in triage was 99 9 I rechecked it orally it was 98 6. Pulse ox 98% on room air no hypoxia he is tachycardic. H EENT exam unremarkable. Neck nontender no JVD no lymphadenopathy. Lungs clear to auscultation bilaterally. Heart tachycardic while 115 no murmur. Abdomen soft nontender. Moving all 4 extremities. Nontender no edema no cords. Back nontender. Neurologically is awake alert no focal motor deficits. Const Vital Signs: 08/15/23 14:28 08/15/23 14:30 08/15/23 14:32 Temperature 99.9 F H 98.6 F Temperature Source Temporal Oral Pulse Rate 119 H Respiratory Rate 18 Respiratory Effort Blood Pressure 150/109 H Blood Pressure Mean 122 Pulse Ox 98 95 Oxygen Delivery Method Room Air Room Air 08/15/23 14:32 08/15/23 16:47 08/15/23 17:00 Temperature Temperature Source Pulse Rate 98 93 Respiratory Rate 22 H 23 H Respiratory Effort Normal Blood Pressure 124/74 H 152/99 H Blood Pressure Mean 90 116 Pulse Ox 96 95 Oxygen Delivery Method Room Air Room Air Positive well nourished and well developed; Negative for obese, cachectic, contractures or unkempt General Appearance ED: well developed and NAD; Negative for unkempt, cachectic, contractures or pallor Nutritional Appearance: Negative for cachectic or obese HEENT Reports moist mucous membranes; Denies dry mucous membranes normocephalic and atraumatic; Negative for trauma or tenderness Mouth ED: No dry mucous membranes Mouth: No dry mucous membranes Eyes PERRL and EOMs intact bilaterally General Eye ED: Negative for pale conjunctiva, scleral icterus or other Neck no lymphadenopathy, supple and no JVD General: Negative for tenderness Chest Wall inspection of chest normal and palpation of chest normal Chest: Negative for tenderness or other Resp normal respiratory effort and clear to auscultation bilaterally Effort and Inspection: Negative for respiratory distress Auscultation: Negative for rales, rhonchi or wheezes Cardio regular rhythm, S1 normal heart sound, S2 normal heart sound and no murmurs; Negative for regular rate Rate: tachycardic Rhythm: Negative for abnormal rhythm Peripheral Pulses: pulses 2+ throughout GI soft to palpation, non-tender, non-distended and no masses Back/Spine no CVA tenderness and no thoracic nor lumbar tenderness General Back: Negative for CVA tenderness Cervical Spine: Negative for cervical spine tenderness Extremity normal to inspection General Extremety ED: Negative for edema, pulses abnormal or tenderness General Extremity: Negative for edema or pulses abnormal Neuro CN's II-XII intact bilaterally Sensorium / Orientation: awake, alert, oriented to person, oriented to place and oriented to time; Negative for confused or lethargic Motor Exam: strength 5/5 throughout Psych mental status grossly normal Appearance: Negative for unkempt Mood & Affect: Negative for depressed, anxious or tearful Skin no rashes or lesions noted and no wounds General Skin Exam: Negative for jaundice or pallor Rashes: No rashes noted Trauma: Negative for abrasion or laceration Heart Score History: Slightly/Non-Suspicious ECG: Normal Age: >45 - <65 years Risk Factors: No Risk Factors Troponin: </= Normal Limit Score: 1 MDM MDM MDM Narrative Medical decision making narrative: Repeat exam patient doing well. Was instructed of [id number] male with atypical chest discomfort. Recently had aortic valve replaced with a pig valve in [facility] less than 3 months ago. No DVT or PE history cardiac workup with a D-dimer will be obtained. Lab results a CTA of the chest will be obtained due to tachycardia, exertional dyspnea and concern for a PE with elevated D-dimer. History & Record Review Discussion w/independent historian: Family Additional record(s) reviewed:: Prior inpatient record, Prior outpatient record, Prior ED visit and Prior labs Lab Data Attestation: I reviewed the patient's lab results. Lab results narrative: CBC shows a white 11.2. H&H of 14 and 43. Platelets 223. Electrolytes show sodium 134 gap 3. Normal BUN and creatinine. Glucose 124. Troponin normal at 8. 2-hour Troponin was 9. D-dimer are elevated at 1.16. CTA of the chest was unremarkable. Labs: Laboratory Results - last 24 hr 08/15/23 08/15/23 15:05 17:25 WBC 11.2 H RBC 5.12 Hgb 14.3 Hct 43.6 MCV 85.2 MCH 27.9 MCHC 32.8 RDW Std Deviation 44.8 H RDW Coeff of Jhonatan 14.4 Plt Count 223 MPV 10.2 Immature Gran % (Auto) 0.400 Neut % (Auto) 73.2 H Lymph % (Auto) 17.9 L Donley % (Auto) 8.0 Eos % (Auto) 0.3 Baso % (Auto) 0.2 Absolute Neuts (auto) 8.2 H Absolute Lymphs (auto) 2.00 Nucleated RBC % 0 D-Dimer Quant (PE/DVT) 1.16 H* Sodium 134 L Potassium 3.9 Chloride 105 Carbon Dioxide 26.0 Anion Gap 3 L BUN 14 Creatinine 0.82 Estim Creat Clear Calc 126.65 Est GFR (MDRD) Af Amer 124 Est GFR (MDRD) Non-Af 103 BUN/Creatinine Ratio 17.0 Glucose 124 H Calcium 9.6 Troponin I High Sens 8 9 Radiography Chest X-Ray - ED: 1 View, Read by ED Physician, Read by Radiologist, Normal, Heart, Lungs, Mediastinum, Bony Structures, No Acute Disease and Chronic Changes Diagnostic Testing: Clinical Impression(s) from Imaging Studies Chest X-Ray 08/15/23 14:35 IMPRESSION: Stable elevation of the right hemidiaphragm with some findings suggestive of mild degree of bibasilar linear atelectasis. Electronically Signed: Amish Gaffney MD at 15:06 EST , Chest CTA 08/15/23 16:33 IMPRESSION: Normal CTA chest examination, without a demonstrated pulmonary embolism or arterial dissection. Low lung volumes with mild atelectasis and trace effusions in both lung bases. No other definite acute or significant abnormality seen. Electronically Signed: Krishna Gillespie MD at 17:30 EST , Chest x-ray, portable, single view, interpreted by myself the radiologist. Showed no acute abnormality. Elevated right hemidiaphragm. Atelectasis. CTA chest shows no PE. Read by the radiologist. Reviewed by me. Rhythm Strip Rhythm Strip: Sinus Tach Rate: 116 Ectopy: None EKG Initial EKG: Attestation: I personally reviewed and interpreted this EKG as follows: Interpretation: No Acute Injury Pattern and Sinus Tachycardia Comments: Sinus tachycardia rate of 116 no acute signs of RI or ischemia. Discharge Plan Triage Chief Complaint: Chest Pain ED Provider: Edgardo Mendoza Dx/Rx/DC Orders Clinical Impression: Chest pain of uncertain etiology, H/O aortic valve replacement Instructions: ED Chest Pain, Uncertain Cause Prescriptions: No Action atorvastatin [Lipitor] 20 mg tablet 20 mg PO DAILY Qty: 90 3RF aspirin [Adult Aspirin Regimen] 81 mg tablet,delayed release (DR/EC) 81 mg PO DAILY metoprolol tartrate 50 mg tablet 25 mg PO BID amoxicillin 500 mg capsule 2,000 mg PO .COMPLEX Qty: 4 3RF Rx Instructions: 2,000 mg orally 30-60minutes prior to procedure; Primary Care Provider: Bro Herrera Referrals: Bro Herrera MD [Primary Care Provider] - 3-5 Days Activity Restrictions/Additional Instructions: Follow-up with your doctor. Follow-up with your card thoracic urologist or card urgent. With your symptoms of exertional dyspnea he need to have this reevaluated. Your labs today were unremarkable and your CAT scan showed no blood clot. Disposition Disposition: Home, Self Care
[2023-08-15 15:13] VITALS: BMI 37.9
[2023-08-15 15:24] LABS: Absolute Neutrophil Count 8.2 X10^3/uL (2.0-7.7); Basophil# 0.02 X10^3/uL; Basophil% 0.2 % (0-1); Eosinophil# 0.03 X10^3/uL; Eosinophils% 0.3 % (0-5); Hematocrit 43.6 % (40-54); Hemoglobin 14.3 g/dL (13.0-16.5); Lymphocyte % 17.9 % (19-41); Mean Corp Hgb Conc 32.8 g/dL (32-36); Mean Corpuscular Hgb 27.9 pg (27.0-32.0); Mean Corpuscular Volume 85.2 fL (80-94); Mean Platelet Vol. 10.2 fl (6.2-12.0); Monocyte# 0.89 X10^3/uL; NRBC Flagged by Analyzer 0 % (0-5); Neutrophil # 8.19 X10^3/uL (2.7-7.7); Neutrophil % 73.2 % (47-70); Platelet Count 223 K/mm3 (150-450); RBC Distribution Width CV 14.4 % (11.6-14.6); RBC Distribution Width SD 44.8 fl (35.1-43.9); Red Blood Count 5.12 M/mm3 (4.6-6.2); White Blood Count 11.2 K/mm3 (4.4-11.0)
[2023-08-15] MEDS: Aspirin 81 MG TAB.CHEW 324 MG PO (15:33)
[2023-08-15 15:39] LABS: Anion Gap 3 (5-15); BUN 14 mg/dL (7-18); Calcium,Total 9.6 mg/dL (8.5-10.1); Chloride 105 mmol/L (98-107); Creatinine, Serum 0.82 mg/dL (0.70-1.30); EST Glomerular Filtration Rate 103 mL/min (>60); Est Glom Filt Rate - Afr Amer 124 mL/min (>60); Estimated Creatinine Clearance 126.65 ml/min; Glucose 124 mg/dL (74-106); Potassium 3.9 mmol/L (3.5-5.1); Sodium Level 134 mmol/L (136-145); Troponin-I HS (w/2H Reflex) 8 pg/mL (3.0-78.0)
[2023-08-15 15:49] LABS: D-Dimer Quantitative (DVT/PE) 1.16 FEU/ug/m (0.27-0.49)
--- NOTE | 2023-08-15 16:33 | CT_ITS ---
STUDY: CTA CHEST REASON FOR EXAM: Male, 58 years old. elevated d-dimer. Recent surgery RADIATION DOSAGE (If Supplied By Facility): CTDIvol = ( 11.40 ) mGy, DLP = ( 479.54 ) mGycm TECHNIQUE: The examination was performed with the intravenous administration of IV 100mL Isovue-370. Post-processing of the angiographic images was performed, with multiplanar reformation and 3D reconstruction. Individualized dose optimization techniques were used for this CT. COMPARISON: None. 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 Ultrasound recommended. Normal enhancement of the main pulmonary artery and right and left pulmonary arteries. Normal enhancement of the bilateral peripheral pulmonary arteries. There is no demonstrated pulmonary embolism. Normal thoracic aorta and visualized great vessels. There is no demonstrated aortic dissection. There has been median sternotomy. There is a prosthetic aortic valve. There is a small pericardial effusion. Normal mediastinum. Normal hilar regions. Normal visualized trachea and bronchi. The lungs are under expanded. Elevated right hemidiaphragm with mild overlying atelectasis. Probable subsegmental atelectasis in the posterior left lung base. No infiltrates. Trace bilateral pleural effusions, larger on the left. There are degenerative changes of thoracic spine. Normal visualized upper abdomen. CT/CTA Chest W/WO Contrast IMPRESSION: Normal CTA chest examination, without a demonstrated pulmonary embolism or arterial dissection. Low lung volumes with mild atelectasis and trace effusions in both lung bases. No other definite acute or significant abnormality seen. Electronically Signed: Krishna Gillespie MD at 17:30 EST ,
[2023-08-15 16:47] VITALS: BP 124/74; PULSE 98; RESP 22; O2SAT 96
[2023-08-15 17:00] VITALS: BP 152/99; PULSE 93; RESP 23; O2SAT 95
[2023-08-15 17:16] LABS: Reflex Troponin-HS? (from REC) Y
[2023-08-15 17:54] LABS: Troponin-I HS 9 pg/mL (3.0-78.0)
== END 2023-08-15 18:21 | disposition home or self-care (01) ==
PROVIDERS: Emergency Provider Emergency Medicine; PCP Family Medicine; Visit Provider Emergency Medicine
DX: R07.9 Chest pain, unspecified (principal); G47.33 Obstructive sleep apnea (adult) (pediatric)
CPT/HCPCS: 71045; 71275; 80048; 84484; 85025; 85379; 87631; 93005; 99285; Q9967; A4216

== ENCOUNTER → 2023-08-31 | Outpatient (CLI) | payer OTHER, SELFPAY ==
--- NOTE | 2023-08-31 09:47 | PCM.CR.HP2 ---
CR - History & Physical General Arrival date:: 08/31/23 Arrival time:: 09:47 Date of Referral:: 08/10/23 Date of CR Evaluation:: 08/31/23 Referring Physician: Dr. Diggs Primary Diagnosis: heart valve replacement History of Present Cardiac Event Onset Date Heart valve replacement or repair:: Yes (onset 05/24/23) Medications Ambulatory Orders Medication Instructions Recorded atorvastatin 20 mg tablet (Lipitor) 20 mg PO DAILY #90 tabs 08/09/22 amoxicillin 500 mg capsule 2,000 mg (4 x 500 mg) PO .COMPLEX 08/01/23 #4 caps aspirin 81 mg tablet,delayed 81 mg PO DAILY 08/01/23 release (Adult Aspirin Regimen) metoprolol tartrate 50 mg tablet 25 mg PO BID 08/01/23 Allergies Allergies No Known Allergies Allergy (Verified 08/15/23 14:28) Sleep Disorder Evaluation Hx of Sleep Apnea: Yes Do you snore loudly (louder than talking or can be heard through closed doors)?: No Do you often feel tired/ fatigued/ sleepy during daytime?: No Has anyone observed you stop breathing during sleep?: No History of Hypertension (for STOP score): No STOP Results: Negative Advanced Directives Advanced Directives Power of Calender Inspector: No Living Will: No Advance Directives Information Provided: No Advance Directives on File: No DNR Order?:: No Past Medical History Covid-19 Screening Physicial Symptoms Other Clinical Concerns Exposure Risk Pertinent Comorbidities Has a serious heart condition:: Yes Past Medical Illness Medical History BRADEN on CPAP Past Surgical History Surgical History H/O aortic valve replacement H/O lumbar discectomy H/O repair of right rotator cuff History of repair of anterior cruciate ligament of left knee History of tonsillectomy History of total right knee replacement Surgical History: appendectomy Family History Summary Family History Father Myocardial infarction, Onset Age: 48 Hypertension Diabetes Social History Smoking History Hx Tobacco Use: Yes (chews tobacco) Alcohol Use Alcohol Usage: Yes Occupation Occupation (List type of work in comments):: Employed Hours worked per day:: 5 Hobbies, Recreation, Social Activities Hobbies: Sports Recreational Activities: I am able to engage in all my recreational activities Social Environment Status Marital Status: Current Living Arrangements Living Environment:: Family Children How many children do you have?: 5 Do any of your children live nearby?: Yes Safety Do you feel safe in your surroundings?: Yes Assistance Do you need any assistance at home?: no Review of Systems Review of Systems Hints Review of Present Symptoms: Reports Shortness of Breath with Exertion, Fatigue, Appetite - Normal, Appetite - Special Diet and Sleep - Normal; Denies Shortness of Breath at Rest, PVD, Operative Discomfort, Angina, Wound Healing, Dizziness/Lightheadedness, Heart Arrhythmia/Irregularities or Sexual Changes Pain Is Patient Pain Free?: Yes Risk Factor Assessment Chief Complaint Chief Complaint: heart valve replacement Vital Signs Pulse Ox: 94 Pulse Pulse Rate: 80 Pulse Rhythm: Regular Hypertension Blood Pressure Sitting - Left Arm: 120/84 Obesity Height: 5 ft 9 in Weight:: 250 lb Weight in Pounds: 250.0 lbs Weight Source: Estimated by Patient Body Mass Index (BMI): 36.9 Nutritional Referral for Obesity: No Physical Inactivity Physical Inactivity: Physically demanding job Risk Stratification Risk Guidelines: Moderate Risk: Risk Factor for Smoking, Risk Factor for Diabetes, Risk Factor for Hypertension, Risk Factor for Sedentary Lifestyle and Risk Factor for Depression and Highest Risk: Risk Factor for Dyslipidemia and Risk Factor for Obesity For Smoking Smoking Risk Guidelines For Dyslipidemia Dyslipidemia Risk Guidelines For Diabetes Mellitus Diabetes Risk Guidelines For Obesity/Overweight Obesity/Overweight Risk Guidelines For Hypertension Hypertension Risk Guidelines For Sedentary Lifestyle Sedentary Lifestyle Risk Guidelines For Depression Depression Risk Guidelines Family History Family History Father Myocardial infarction, Onset Age: 48 Hypertension Diabetes Motivation Motivation to Participate On a scale of 1 to 10, how prepared are you to commit to attending program?: 1 What do you see as barriers to successfully being able to complete the program?: no What do you see as the benefits of succesfully completing the program? In other words, what do you hope to get out of participating in the program?: better shape Are there issues you are dealing with that will interfere with completing the program?: no Do you have a spouse or signficant other, family or friends who will help support you to complete the program?: yes
--- NOTE | 2023-08-31 09:52 | CR.ITP_ITS ---
Diagnosis General Information Admitting Diagnosis: heart valve replacement Personal Learning Style:: Audio/Visual Stage of change r/t lifestyle modifications:: Contemplation Gave educational material for:: Treating Heart Disease, How The Heart Works, W hat it means to have Heart Disease, How Coronary Artery Disease is Diagnosed, Heart Procedures, What Heart Medications Do, Risk Factors & Modifications, Living an Active Life, Nutrition, Emotions & Heart Disease, Stress Management & Relaxation and Sleep Disorders & Heart Disease Education/Goals Cardiac Rehabilitation Goals Personal Goals: Initial Assessment: Improve energy level, Participate in home exercise program, Improve muscle strength and endurance, Improve diet and eating habits (eat healthier) and Control risk factors (learn risk factor modification) Scale for measuring improvement of personal goals Diagnosis & Disease Process Outcomes/Goals: Pt IDs own risk factors & lifestyle modifications by Session 10, Verbalizes symptoms of angina & response by session 3., Pt independently manages and Other Additional Outcomes/Goals: Plan/Interventions: Assist Pt to ID & engage in lifestyle modification to reduce CVD risk, Instruct on individual risk factors, Review symptoms of angina & emergency actions, Review secondary diagnosis & identify educational needs. and Other see comment 30 day Reassessments:: Not Met 30 day Reassessments:: Not Met 30 day Reassessments:: Not Met 30 day Reassessments:: Not Met Final Reassessments:: Not Met Safety Referral to Physical Therapy: No Referral to [facility] Case Management: No Fall Risk Assessed:: Yes Assistive Devices:: None Exercise - Initial Assessment Visit Date of Eval: 08/31/23 (initial eval ) Mets: Pre-: >3 METS for 30 minutes by discharge, >5 METS for 30 minutes by discharge, >7 METS for 30 minutes by discharge and Unable to meet goal due to: (see comment below) Physician Prescribed Exercise Modalities: Treadmill, Rower, Airdyne, NuStep, SciFit and Lateral Fire Support Specialist Frequency: 3x/week for 12 weeks [36 sessions] Intensity: 60-80% of age predicted maximum heart rate reserve Duration: 30 - 45 minutes Current METSs:: 3 Target Heart Rate:: 98-115 EKG Type: SR nonspecific ST depression nonspecific T abnormality Outcomes & Goals Goals:: Verbalizes understanding of THR, RPE & goal METS by session 6, Documents in home exercise log/reports 30 min aerobic 5 day/wk by DC, Demonstrates accurate pulse taking by DC and Other additional outcome/goals: see below Intervention & Plan Exercise Program Goals: Instruct on personal THR & RPE, Instruct on MET level & personal MET goal, Show patient to take own pulse /validate performance until accurate, Instruct on home exercise and Other additional plan/int Physical Activity Home Exercise Physical Activity - Home Exercise: Safe Exercise, Warm-up, Self-monitoring, Cool-Down, Home Exercise > 30 min Daily and Sitting Time <3 hours/daily Outcomes & Goals Outcomes/Goals: Demonstrates correct Warm-up/exercise Cool-Down (S3) if = 2.5 METs, Verbalizes symptoms of exercise intolerance by Session 3 (S3), Demonstrate safe equipment use (S3) & follows exercise prescrition (6) and Other: See below Intervention & Plan Plan/Intervention: Instruct warm-up & cool-down if exercising at > 2 METs, Instruct on symptoms of exercise intolerance & actions to take, Instruct & monitor on saf, Assess intial functional capacity & safety risk and Other See below Nutrition - Initial Assessment Program Goals Nutrition Program Goals Patient has diagnosis of Hyperlipidemia (ICD E78)?: No Visit Date of Eval: 08/31/23 (initial eval ) Cholesterol/Lipids (Other Core Measures) Determine presence & major risk factors that modify LDL goal: Cigarette smoking, Hypertension or hypertensive medication, Low HDL cholesterol <40 mg/dL*, Family history of premature CHD in Male < 55 years: female <65 yearsFa and Age men > 45 years; women >/= 55 years Outcomes/Goals: Pt IDs own risk factors & lifestyle modifications by Session 10, Verbalizes symptoms of angina & response by session 3., Pt independently manages and Other Additional Outcomes/Goals: Intervention/Plan: Advocate for lipid panel cholesterol medication if applicable, Instruct on personal lipid levels & lipid goals/NCEP guidelines, Instruct on cholesterol and Other additional plan/int Referral to dietitian:: No Diabetes (Other Core Measures) Diabetes Type: Not Applicable Weight Mgt (Other Care) Height: 5 ft 9 in Weight:: 250 lb BMI: 36.9 Diagnosis Overweight/Obesity BMI> 30% ICD-10 E66: Yes Diagnosis High BMI/Morbid Obesity BMI> 35% ICD-10 Z68: Yes Outcomes/Goals: Pt sets, maintains & shows weight loss goal & trend during rehab and Other additional outcomes/goals Intervention/Plan: Instruct on ideal BMI & set weight loss goal w/patient, Assist pt to ID & incorporate diet changes for weight loss by S9, Refer to Structured Weight Loss program as appropriate, Encourage goal of using 250- 300dcal per session for weight loss and Other additional plan/interventions Healthy Eating Habits Will attend diet classes:: Yes Outcomes/Goals:: Consume diet rich in vegs,fruits,whole grain/high fiber,fish,lean meat, Limit sat/trans fats,cholesterol & added salts & sugars and Other additional outcome/goals: Intervention/Plan:: Assess current eating habits and Other Additional plan/interventions Education Gave educational materials for:: Signs & symptoms of hypoglycemia, Signs & symptoms of hyperglycemia, Relate diabetes to coronary artery disease and Healthy eating Core - Initial Assessment Visit Date of Eval: 08/31/23 (initial eval ) Medication Compliance Preventative Medication(s):: Aspirin, Statin/lipid and Beta josee H/O mental health issues: depression, anxiety, or addiction?: No Doesn?t believe in the benefits of treatment?: No Believes medications are unnecessary or harmful?: No Has a concern about medication side effects?: No Expresses concern over the cost of medications?: No Outcomes/Goals: Verbalizes medications,desired effect & common side effects @ D C, Pt self-reports following medication regimen, Keeps card in wallet w/medications listed by DC and Other additional outcome/goals: Interventions/plans: Instruct on medication effects & side effects, Review medication list w/patient every two weeks, Instruct importance of taking meds as ordered & assist problem solving and Other additional Tobacco Use Tobacco Use: Non-smoker Hypertension Hypertension Diagnosis:: Not Applicable [place] [employer] Hypertension Guidelines Outcomes/Goals: Able to verbalize/achieve optimal blood pressure <130/80, Incorporates diet changes & exercise for blood pressure control by DC and Other additional outcomes/goals Interventions/plan: Instruct on optimal blood pressure, hypertension & medications, Instruct on effects of sodium, alcohol, stress, exercise & hypertension and Other additional plan/interventions Tobacco Cessation Referral Smoking Cessation Referral:: No Individual Education/Counseling:: No Education Schedule Given:: Yes Psychosocial - Initial Assess VIsit Date of Eval: 08/31/23 (initial eval ) Target Goals Target Goals Outcomes/Goals: See list Psychosocial Outcomes/Goals:: ID's personal stressors & 2 strategies to manage stress by discharge and Other Additional outcome/goals: Intervention/Plan: See List Interventions/Plan:: Assess stressors,coping strategies & signs of derpression on admission, Instruct/assist pt to develop coping & personal stress Mgt strategies, Refer to Behavioral Health if appropriate, Refer to Physician if appropriate, Instruct patient to recognize signs & symptoms of depression, Instruct patient to recog and Other additional plan/intervention Patient Health Questionnaire PHQ-9 Screening Initial Assessment: 1. Little interest or pleasure in doing things: Not at all 2. Feeling down, depressed, or hopeless: Not at all 3. Trouble falling or staying asleep, or sleeping too much: Several days 4. Feeling tired or having little energy: Several days 5. Poor appetite or overeating: Several days 6. Feeling bad about yourself -- or that you are a failure or have let yourself or your family down: Not at all 7. Trouble concentrating on things, such as reading the newspaper or watching television: Not at all 8. Moving or speaking so slowly that other people could have noticed. Or the opposite - being so fidgety or restless that you have been moving around a lot more than usual: Not at all 9. Thoughts that you would be better off , or of hurting yourself in some way: Not at all How difficult have these problems made it for you to do your work, take care of things at home, or get along with other people?: Not difficult at all Total Score: 3 NIKIA-Q SV Test Statements CAD is a disease of the arteries in the heart: False Examples of risk factors for heart disease: True Angina is chest pain or discomfort: True The benefits of resistance training include: True Eating more meat and dairy products: False Anti-platelet medications such as aspirin are important: True The only effective way to manage stress: False An exercise warm-up slowly increases heart rate: True Prepared, processed foods usually have high sodium: True Depression is common after a heart attack: True The statin medications lower cholesterol: True To control blood pressure, lower the amount of sodium: True If someone gets chest discomfort during walking: False Transfats are partially hydrogenated vegetable oils: True Sleep apnea that is not treated increases the risk: True To control cholesterol, one should become a vegetarian: False Someone knows if he/she is exercising at the right level: True Diabetes cannot be prevented with exercise & health eating: True Stress is a large risk for heart attack: True A diet that can help lower blood pressure is rich in: True Total Score Total Correct Responses: 18 Self-Efficacy 6-Item Scale Initial Assessment: We would like to know how confident you are in doing certain activities. Please select your confidence level for: Fatigue Select Number: 8 Physical Discomfort or Pain Select Number: 8 Emotional Distress Select Number: 10 Other Symptoms or Health Problems Select Number: 6 Different Tasks and Activities Select Number: 8 Medication Select Number: 7 Total Score:: 7 Nutrition Survey Nutrition Survey Instructions Scoring Instructions Nutrition Survey Initial: Have you lost >10 lbs over the past 2 months without trying?: No Are you following a special diet at home for diabetes, low fat, or low salt?: No Are you interested in meeting with a dietitian for help understanding your diet?: No Do you eat less than 3 meals a day?: Yes Do you eat fatty meats (aldridge, sausage, ribs, etc), fried foods, desserts, large amounts of salad dressings, margarine, butter, or cheese most days?: Yes Do you have food allergies? [Enter types in comment field]: No Do you eat in restaurants more than 3 times a week?: Yes Do you season food with salt, seasoning salt, or garlic salt?: Yes Do you used canned, boxed, frozen meals, or soups, seasoning packets?: Yes Total Score:: 5 Exercise - Final/Discharge Physician Prescribed Exercise Modalities: Treadmill, Rower, Airdyne, NuStep, SciFit and Lateral Fire Support Specialist Frequency: 3x/week for 12 weeks [36 sessions] Intensity: 60-80% of age predicted maximum heart rate reserve Current METSs:: 3 Target Heart Rate:: 98-115 Nutrition - 30-Day Assessment Weight Mgt (Other Care) Height: 5 ft 9 in Weight:: 250 lb BMI: 36.9 Nutrition - 60-Day Assessment Weight Mgt (Other Care) Height: 5 ft 9 in Weight:: 250 lb BMI: 36.9 Psychosocial - 30-Day Assess Target Goals Target Goals Psychosocial - 60-Day Assess Target Goals Target Goals Psychosocial - 90-Day Assess Target Goals Target Goals Psychosocial - Final Assessmen Target Goals Target Goals Nutrition - 90-Day Assessment Weight Mgt (Other Care) Height: 5 ft 9 in Weight:: 250 lb BMI: 36.9 Nutrition - Final Assessment Program Goals Patient has diagnosis of Hyperlipidemia (ICD E78)?: No Weight Mgt (Other Care) Height: 5 ft 9 in Weight:: 250 lb BMI: 36.9
[2023-08-31 10:08] VITALS: BP 120/84; PULSE 80; O2SAT 94; BMI 36.9
[2023-08-31 10:39] VITALS: BMI 36.9
== END | disposition home or self-care (01) ==
LOC: CR 09:38
PROVIDERS: PCP Family Medicine; Referring Provider Internal Medicine Cardiovascular Disease; Visit Provider Internal Medicine Cardiovascular Disease
DX: Z00.00 Encounter for general adult medical examination without abnormal findings (principal)

== ENCOUNTER 2023-09-19 14:15 | Outpatient (RCR) | payer OTHER, SELFPAY ==
[2023-08-31 10:39] VITALS: BMI 36.9
== END 2023-09-20 23:59 ==
LOC: CR 14:15
PROVIDERS: PCP Family Medicine; Referring Provider Internal Medicine Cardiovascular Disease; Visit Provider Internal Medicine Cardiovascular Disease
DX: Z95.2 Presence of prosthetic heart valve (principal); I35.0 Nonrheumatic aortic (valve) stenosis
CPT/HCPCS: 93798

== ENCOUNTER → 2023-10-11 | Outpatient (CLI) | payer OTHER, SELFPAY ==
[2023-08-31 10:39] VITALS: BMI 36.9
[2023-09-28 09:26] VITALS: BMI 37.2
--- NOTE | 2023-10-11 12:37 | ECHOCS_ITS ---
Reason For Study: TACHYCARDIA & CHEST PAIN S/P AVR (2022). Procedure This was a 2D Doppler, Color Flow transthoracic echocardiogram. The study was technically difficult. Due to body habitus. Contrast injection was performed. Left Ventricle Normal LV size. The left ventricular ejection fraction is 55 %. No regional wall motion abnormalities noted. Right Ventricle Normal RV size. Normal systolic function. Atria Normal left atrium. Normal atrial septum. Mitral Valve Normal mitral valve. Tricuspid Valve Normal tricuspid valve. Aortic Valve Normal prosthetic aortic valve. Pulmonic Valve Normal pulmonic valve. Great Vessels Normal aortic root. The pulmonary artery is normal size. Inferior vena cava collapse with respiration. Pericardium/Pleural No pericardial effusion. Medication 22 gauge I.V. with prn adaptor inserted into left arm. Diluted definity 3.0ml given slow IV push to enhance endocardial definition. MMode/2D Measurements & Calculations LVIDd: 5.5 cm IVSd: 1.3 cm Ao root diam: 3.2 cm LVIDs: 3.9 cm LVPWd: 1.1 cm RVDd: 3.0 cm FS: 29.7 % LAV(MOD-bp): 60.7 ml LVAd ap4: 34.3 cm2 LVAd ap2: 31.1 cm2 LAV(MOD-bp) Indexed: 26.7 ml/m2 LVLd ap4: 8.4 cm LVLd ap2: 8.1 cm LAV(MOD-sp2): 54.0 ml EDV(MOD-sp4): 114.6 ml EDV(MOD-sp2): 98.3 ml LAV(MOD-sp4): 63.7 ml EDV(sp4-el): 119.2 ml EDV(sp2-el): 101.0 ml LVAs ap4: 18.5 cm2 LVAs ap2: 18.0 cm2 LVLs ap4: 7.1 cm LVLs ap2: 6.5 cm ESV(MOD-sp4): 40.6 ml ESV(MOD-sp2): 42.4 ml ESV(sp4-el): 41.2 ml ESV(sp2-el): 42.4 ml EF(MOD-sp4): 64.6 % EF(MOD-sp2): 56.9 % EF(sp4-el): 65.4 % SV(MOD-sp4): 74.0 ml SV(MOD-sp2): 55.9 ml SV(sp4-el): 78.0 ml LA dimension(2D): 5.1 cm RA A4 area: 15.8 cm2 TAPSE: 1.7 cm Time Measurements MV dec time: 0.18 sec Doppler Measurements & Calculations MV E max jose: 81.6 cm/sec Lat Peak E' Jose: 12.3 cm/sec Med Peak E' Jose: 6.8 cm/sec MV A max jose: 80.6 cm/sec E/E' lat: 6.6 E/E' med: 12.0 MV E/A: 1.0 MV V2 max: 111.7 cm/sec MV P1/2t max jose: 111.2 cm/sec Ao V2 max: 211.0 cm/sec MV max P.0 mmHg MV P1/2t: 61.5 msec Ao max P.8 mmHg MV V2 mean: 51.7 cm/sec Ao V2 mean: 158.2 cm/sec MV mean P.4 mmHg MV dec slope: 529.9 cm/sec2 Ao mean P.7 mmHg MV V2 VTI: 34.9 cm MVA(P1/2t): 3.6 cm2 Ao V2 VTI: 45.2 cm AV (velocity ratio): 0.79 LV V1 max: 160.2 cm/sec PA V2 max: 108.2 cm/sec LV V1 max P.3 mmHg PA V2 mean: 71.2 cm/sec LV V1 mean P.2 mmHg LV V1 mean: 119.1 cm/sec LV V1 VTI: 35.6 cm ECHO/Echo Complete W/ Contrast Interpretation Summary Normal LV size. The left ventricular ejection fraction is 55 %. Normal prosthetic aortic valve. Contrast injection was performed. Ordering Physician: Carlos Diggs Referring Physician: Tate Herrera Performed By: Cathryn Ashley, RDCS, RVT
== END | disposition home or self-care (01) ==
LOC: CVS 12:37
PROVIDERS: PCP Family Medicine; Referring Provider Internal Medicine Cardiovascular Disease; Visit Provider Internal Medicine Cardiovascular Disease
DX: R07.9 Chest pain, unspecified (principal)
CPT/HCPCS: 93306; Q9957; A4216; C8929

== ENCOUNTER 2023-10-15 14:15 | Outpatient (RCR) | payer OTHER, SELFPAY ==
[2023-08-31 10:39] VITALS: BMI 36.9
--- NOTE | 2023-09-28 09:12 | CR.ITP_ITS ---
Exercise - Initial Assessment Visit Session #:: 11 Nutrition - Initial Assessment Weight Mgt (Other Care) Height: 5 ft 9 in Weight:: 252 lb BMI: 37.2 Psychosocial - Initial Assess Target Goals Target Goals Patient Health Questionnaire PHQ-9 Screening 30-Day Re-eval Assessment: 1. Little interest or pleasure in doing things: Not at all 2. Feeling down, depressed, or hopeless: Not at all 3. Trouble falling or staying asleep, or sleeping too much: Several days 4. Feeling tired or having little energy: Several days 5. Poor appetite or overeating: Several days 6. Feeling bad about yourself -- or that you are a failure or have let yo urself or your family down: Not at all 7. Trouble concentrating on things, such as reading the newspaper or watching television: Not at all 8. Moving or speaking so slowly that other people could have noticed. Or the opposite - being so fidgety or restless that you have been moving around a lot more than usual: Not at all 9. Thoughts that you would be better off , or of hurting yourself in some way: Not at all How difficult have these problems made it for you to do your work, take care of things at home, or get along with other people?: Not difficult at all Total Score: 3 Self-Efficacy 6-Item Scale 30-Day Re-eval Assessment: We would like to know how confident you are in doing certain activities. Please select your confidence level for: Fatigue Select Number: 8 Physical Discomfort or Pain Select Number: 8 Emotional Distress Select Number: 10 Other Symptoms or Health Problems Select Number: 6 Different Tasks and Activities Select Number: 8 Medication Select Number: 7 Total Score:: 7 Nutrition Survey Nutrition Survey Instructions Scoring Instructions Exercise - 30-day Assessment Visit Date of Eval: 09/28/23 Session #:: 11 Physician Prescribed Exercise Modalities: Treadmill, Rower and Airdyne Frequency: 3x/week for 12 weeks [36 sessions] Intensity: 60-80% of age predicted maximum heart rate reserve Duration: 30 - 45 minutes Current METSs:: 3.5 Target Heart Rate:: 98-115 Current RPE:: 10-11 Maximum Excercise HR:: 124 Resting Blood Pressure: 130/88 Maximum Exercise Blood Pressure: 178/90 EKG Type: NSR to ST with Twave inversion with rare PVC Outcomes & Goals Goals:: Verbalizes understanding of THR, RPE & goal METS by session 6, Documents in home exercise log/reports 30 min aerobic 5 day/wk by DC, Demonstrates accurate pulse taking by DC and Other additional outcome/goals: see below Intervention & Plan Exercise Program Goals: Instruct on personal THR & RPE, Instruct on MET level & personal MET goal, Show patient to take own pulse /validate performance until accurate, Instruct on home exercise and Other additional plan/int 30-day Reassessments 30 day Reassessments:: Progressing Reassessment Notes & Comments:: RPE explained Physical Activity Home Exercise Physical Activity - Home Exercise: Safe Exercise, Warm-up, Self-monitoring, Cool-Down, Home Exercise > 30 min Daily and Sitting Time <3 hours/daily Outcomes & Goals Outcomes/Goals: Demonstrates correct Warm-up/exercise Cool-Down (S3) if = 2.5 METs, Verbalizes symptoms of exercise intolerance by Session 3 (S3), Demonstrate safe equipment use (S3) & follows exercise prescrition (6) and Other: See below Intervention & Plan Plan/Intervention: Instruct warm-up & cool-down if exercising at > 2 METs, Instruct on symptoms of exercise intolerance & actions to take, Instruct & monitor on saf, Assess intial functional capacity & safety risk and Other See below 30-day Reassessments 30 day Reassessments:: Progressing Reassessment Notes & Comments:: warm up encouraged Nutrition - 30-Day Assessment Program Goals Nutrition Program Goals Patient has diagnosis of Hyperlipidemia (ICD E78)?: No Visit Date of Eval: 09/28/23 Session #:: 11 Cholesterol/Lipids (Other Core Measures) Determine presence & major risk factors that modify LDL goal: Cigarette smoking, Hypertension or hypertensive medication, Low HDL cholesterol <40 mg/dL*, Family history of premature CHD in Male < 55 years: female <65 yearsFa and Age men > 45 years; women >/= 55 years Outcomes/Goals: Pt IDs own risk factors & lifestyle modifications by Session 10, Verbalizes symptoms of angina & response by session 3., Pt independently manages and Other Additional Outcomes/Goals: Intervention/Plan: Advocate for lipid panel cholesterol medication if applicable, Instruct on personal lipid levels & lipid goals/NCEP guidelines, Instruct on cholesterol and Other additional plan/int Referral to dietitian:: No 30-day Reassessments:: Progressing Reassessment Notes & Comments:: risk factors reviewed Diabetes (Other Core Measures) Diabetes Type: Not Applicable Weight Mgt (Other Care) Height: 5 ft 9 in Weight:: 252 lb BMI: 37.2 Diagnosis Overweight/Obesity BMI> 30% ICD-10 E66: Yes Diagnosis High BMI/Morbid Obesity BMI> 35% ICD-10 Z68: Yes Outcomes/Goals: Pt sets, maintains & shows weight loss goal & trend during rehab and Other additional outcomes/goals Intervention/Plan: Instruct on ideal BMI & set weight loss goal w/patient, Assist pt to ID & incorporate diet changes for weight loss by S9, Refer to Structured Weight Loss program as appropriate, Encourage goal of using 250- 300dcal per session for weight loss and Other additional plan/interventions 30 day Reassessments:: Progressing Reassessment Notes & Comments:: pt to attend nutrition class Healthy Eating Habits Will attend diet classes:: Yes Outcomes/Goals:: Consume diet rich in vegs,fruits,whole grain/high fiber,fish,lean meat, Limit sat/trans fats,cholesterol & added salts & sugars and Other additional outcome/goals: Intervention/Plan:: Assess current eating habits and Other Additional plan/interventions 30-day Reassessments:: Progressing Reassessment Notes & Comments:: pt to attend nutrition class Education Gave educational materials for:: Signs & symptoms of hypoglycemia, Signs & symptoms of hyperglycemia, Relate diabetes to coronary artery disease and Healthy eating Nutrition - 60-Day Assessment Weight Mgt (Other Care) Height: 5 ft 9 in Weight:: 252 lb BMI: 37.2 Core - 30-Day Assessment Visit Date of Eval: 09/28/23 Session #:: 11 Medication Compliance Preventative Medication(s):: Aspirin, Statin/lipid and Beta josee H/O mental health issues: depression, anxiety, or addiction?: No Doesn?t believe in the benefits of treatment?: No Believes medications are unnecessary or harmful?: No Has a concern about medication side effects?: No Expresses concern over the cost of medications?: No Outcomes/Goals: Verbalizes medications,desired effect & common side effects @ DC, Pt self-reports following medication regimen, Keeps card in wallet w/medications listed by DC and Other additional outcome/goals: Interventions/plans: Instruct on medication effects & side effects, Review medication list w/patient every two weeks, Instruct importance of taking meds as ordered & assist problem solving and Other additional 30-day Reassessments:: Progressing Reassessment Notes & Comments:: pt encouraged to take his meds Tobacco Use Tobacco Use: Non-smoker Hypertension Hypertension Diagnosis:: Not Applicable Resting Blood Pressure:: 130/88 [place] [employer] Hypertension Guidelines Peak Exercise Blood Pressure:: 170/90 Outcomes/Goals: Able to verbalize/achieve optimal blood pressure <130/80, Incorporates diet changes & exercise for blood pressure control by DC and Other additional outcomes/goals Interventions/plan: Instruct on optimal blood pressure, hypertension & medications, Instruct on effects of sodium, alcohol, stress, exercise &hypertension and Other additional plan/interventions 30 day Reassessments:: Progressing Reassessment Notes & Comments:: pt encouraged to take his meds Tobacco Cessation Referral Smoking Cessation Referral:: No Individual Education/Counseling:: No Education Schedule Given:: Yes Psychosocial - 30-Day Assess VIsit Date of Eval: 09/28/23 Session #:: 11 History of previous Mental disease:: No Target Goals Target Goals Outcomes/Goals: See list Psychosocial Outcomes/Goals:: ID's personal stressors & 2 strategies to manage stress by discharge and Other Additional outcome/goals: Intervention/Plan: See List Interventions/Plan:: Assess stressors,coping strategies & signs of derpression on admission, Instruct/assist pt to develop coping & personal stress Mgt strategies, Refer to Behavioral Health if appropriate, Refer to Physician if appropriate, Instruct patient to recognize signs & symptoms of depression, Instruct patient to recog and Other additional plan/intervention 30-day Reassessments: 30 day Reassessments:: Met Psychosocial - 60-Day Assess Target Goals Target Goals Outcomes/Goals: See list Psychosocial Outcomes/Goals:: ID's personal stressors & 2 strategies to manage stress by discharge and Other Additional outcome/goals: Psychosocial - 90-Day Assess Target Goals Target Goals Psychosocial - Final Assessmen Target Goals Target Goals Nutrition - 90-Day Assessment Weight Mgt (Other Care) Height: 5 ft 9 in Weight:: 252 lb BMI: 37.2 Nutrition - Final Assessment Weight Mgt (Other Care) Height: 5 ft 9 in Weight:: 252 lb BMI: 37.2
[2023-09-28 09:26] VITALS: BP 130/88; BMI 37.2
== END 2023-10-21 23:59 ==
LOC: CR 14:15
PROVIDERS: PCP Family Medicine; Referring Provider Internal Medicine Cardiovascular Disease; Visit Provider Internal Medicine Cardiovascular Disease
DX: Z95.2 Presence of prosthetic heart valve (principal); I35.0 Nonrheumatic aortic (valve) stenosis
CPT/HCPCS: 93798

== ENCOUNTER 2023-10-22 07:03 | Outpatient (RCR) | payer OTHER, SELFPAY ==
[2023-09-28 09:26] VITALS: BMI 37.2
[2023-10-22 00:27] VITALS: BP 130/88
== END 2023-11-20 23:59 ==
LOC: CR 07:03
PROVIDERS: PCP Family Medicine; Referring Provider Internal Medicine Cardiovascular Disease; Visit Provider Internal Medicine Cardiovascular Disease
DX: Z95.2 Presence of prosthetic heart valve (principal); I35.0 Nonrheumatic aortic (valve) stenosis
CPT/HCPCS: 93798

== ENCOUNTER → 2024-05-07 | Outpatient (CLI) | payer OTHER, SELFPAY ==
[2023-09-28 09:26] VITALS: BMI 37.2
--- NOTE | 2024-05-07 06:56 | ECHOCS_ITS ---
Reason For Study: VALVE REPLACEMENT-EVAL Procedure This was a 2D Doppler, Color Flow transthoracic echocardiogram. The study was technically difficult. Due to body habitus. Contrast injection was performed. Exam performed in department. Left Ventricle Normal LV size. Left ventricular systolic function is normal. The left ventricular ejection fraction is 55 %. Stage 1 diastolic dysfunction. No regional wall motion abnormalities noted. Right Ventricle Normal RV size. Normal systolic function. Atria Normal left atrium. Normal right atrium. Mitral Valve Normal mitral valve. Tricuspid Valve Normal tricuspid valve. Mild tricuspid valve insufficiency. Aortic Valve Mean aortic valve gradient 11 mmHg. Normal prosthetic aortic valve. Pulmonic Valve The pulmonic valve is not well visualized. Great Vessels Normal aortic root. The pulmonary artery is normal size. Normal inferior vena cava. Pericardium/Pleural No pericardial effusion. Medication 22 gauge I.V. with prn adaptor inserted into right arm. Diluted definity 1.5ml given slow IV push to enhance endocardial definition. MMode/2D Measurements & Calculations LVIDd: 5.2 cm IVSd: 1.0 cm Ao root diam: 3.3 cm LVIDs: 3.8 cm LVPWd: 0.96 cm RVDd: 3.1 cm FS: 26.4 % LAV(MOD-bp): 45.0 ml LVAd ap4: 24.8 cm2 LVAd ap2: 29.1 cm2 LAV(MOD-bp) Indexed: 19.8 ml/m2 LVLd ap4: 7.9 cm LVLd ap2: 8.7 cm LAV(MOD-sp2): 44.0 ml EDV(MOD-sp4): 63.2 ml EDV(MOD-sp2): 79.6 ml LAV(MOD-sp4): 44.7 ml EDV(sp4-el): 65.8 ml EDV(sp2-el): 82.9 ml LVAs ap4: 15.0 cm2 LVAs ap2: 15.8 cm2 LVLs ap4: 6.9 cm LVLs ap2: 7.3 cm ESV(MOD-sp4): 26.9 ml ESV(MOD-sp2): 27.7 ml ESV(sp4-el): 27.9 ml ESV(sp2-el): 29.0 ml EF(MOD-sp4): 57.5 % EF(MOD-sp2): 65.2 % EF(sp4-el): 57.6 % SV(MOD-sp4): 36.3 ml SV(MOD-sp2): 51.9 ml SV(sp4-el): 37.9 ml LA A4 area: 16.2 cm2 LA dimension(2D): 3.9 cm RA A4 area: 12.1 cm2 TAPSE: 1.9 cm Time Measurements MV dec time: 0.26 sec Doppler Measurements & Calculations MV E max jose: 71.3 cm/sec Lat Peak E' Jose: 8.5 cm/sec Med Peak E' Jose: 8.1 cm/sec MV A max jose: 76.0 cm/sec E/E' lat: 8.3 E/E' med: 8.8 MV E/A: 0.94 MV V2 max: 96.4 cm/sec MV P1/2t max jose: 100.5 cm/sec Ao V2 max: 221.6 cm/sec MV max P.7 mmHg MV P1/2t: 105.2 msec Ao max P.7 mmHg MV V2 mean: 58.3 cm/sec Ao V2 mean: 160.4 cm/sec MV mean P.5 mmHg MV dec slope: 279.7 cm/sec2 Ao mean P.2 mmHg MV V2 VTI: 38.9 cm MVA(P1/2t): 2.1 cm2 Ao V2 VTI: 48.2 cm AV (velocity ratio): 0.62 LV V1 max: 131.1 cm/sec PA V2 max: 106.8 cm/sec TR max jose: 179.4 cm/sec LV V1 max P.2 mmHg PA V2 mean: 70.2 cm/sec TR max P.9 mmHg LV V1 mean P.5 mmHg LV V1 mean: 99.0 cm/sec LV V1 VTI: 30.0 cm ECHO/Echo Complete W/ Contrast Interpretation Summary Normal LV size. Left ventricular systolic function is normal. The left ventricular ejection fraction is 55 %. Stage 1 diastolic dysfunction. Normal prosthetic aortic valve. Mean aortic valve gradient 11 mmHg. Ordering Physician: Iman Winston Referring Physician: Tate Herrera Performed By: Cathryn Ashley, SYLVESTER, RVT
[2024-05-07 09:03] LABS: AST(SGOT) 21 U/L (15-37); Alanine Aminotransfer ALT/SGPT 31 U/L (16-61); Albumin, Serum 3.7 g/dL (3.2-5.0); Alkaline Phosphatase 109 U/L (45-117); Bilirubin, Direct 0.17 mg/dL (0.00-0.30); Cholesterol 127 mg/dL (200); Globulin 3.7 g/dL (2.2-4.2); High Density Lipoprotein 45 mg/dL; Protein, Total 7.4 g/dL (6.4-8.2); Triglycerides 125 mg/dL; Very Low Density Lipoprotein 25 mg/dL (5-40)
== END | disposition home or self-care (01) ==
PROVIDERS: PCP Family Medicine; Referring Provider Nurse Practitioner Gerontology; Visit Provider Nurse Practitioner Gerontology
DX: E78.5 Hyperlipidemia, unspecified (principal); Z95.2 Presence of prosthetic heart valve
CPT/HCPCS: 36415; 80061; 80076; 93306; Q9957; A4216; C8929

== ENCOUNTER 2025-01-29 06:40 | Outpatient (RCR) | payer OTHER, SELFPAY ==
[2023-09-28 09:26] VITALS: BMI 37.2
--- NOTE | 2025-01-29 07:57 | HP.PTEVAL_ITS ---
Patient's Visit Information Visit Information Visit Information: JONAS KENT is a 59 year old M referred to Physical Therapy by Dr. Michael Mancera MD with a diagnosis of R knee instability, presence of R TKA. Date of Evaluation: 01/29/25 Physical Therapist: Cameron David DPT Visit Plan Frequency: 1x/Week Duration: 4 Weeks Plan: 1) Pt. given quad, HS, and glute strengthening exercises to work on in mid range and end range extension. He desires to work on these at home at this point in time. He is to trial these for 1 month then follow back up with PT. Subjective Subjective: Pt. is here today for his initial evaluation with diagnosis of R knee instability, presence of R TKA. Pt. reports physician believes the polymer in wearing out in his knee and is hopeful to strengthening around his knee to reduce this from giving out on him. 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 Pt. reports his knee feels like its going to give out laterally and has intense pain when it does. It resolves right when straightens it out. He reports having a period of swelling and heat ~1 month ago, but that has since resolved. Pt. is hopeful to get exercises to work on his own at home in order to strengthening his BLEs. Pain R knee: Pain Intensity (Out of 10): 0 Pain Intensity Range: 0 and 4 Comment: only sharp when he has his incidences. Objective Objective: POSTURE: Pt. has normal posture in stance, slight loss of TKE during stance on RLE. PALPATION: Pt. has no pain throughout R knee. ROM: R knee 0-5-118deg. Pt. has tightness in B Hamstrings as well. NEURO: normal bilaterally. ROM: R knee: 0-3-118deg. Tightness in B HS. MMT: R knee: ext 79.1#, flex 49.7#; hip: flex 70.4#, abd 105.3#, ext 78.4# L knee: ext 66.8#, flex 43.9#; hip: flex 80.9#, abd 93.9#, ext 74.9# GAIT: fairly normal gait pattern. STAIRS: Pt. has normal gait pattern without issues. 30 sec sit to stand rep test 29 without use of UEs. Balance/Special Test Scores Lower Extremity Functional Score: 59 30 Second Chair Rise Test Seconds: 29 Goals Goal 1:: LTG: Pt. to be I with HEP for LE strengthening. Goal Time Frame: 4-6 Weeks Goal 2:: LTG: Pt. to have no occurrences of his knee giving out on him. Goal Time Frame: 4-6 Weeks Rehabilitation Potential Physical Therapy Diagnosis: Pt. has signs of symptoms of R knee instability and presence of R TKA. Pt. is overall fairly strong in his BLEs, R being stronger than L. I did recommend that he work on stability exercises especially as his knee approached TKE. Pt. was give exercises for the above today. He is going to work on these I for ~1 month. Rehabilitation Potential: Good Anticipated Interventions Patient/Client Instruction: Educate patient on: Condition, Plan of Care, Risk Factors and Benefits of Fitness Program For the Purpose of:: To foster healthy habits, To improve decision making, To facilitate caregiver knowledge, To improve self management, To prevent re-injury and To improve ability to perform tasks related to life management Therapeutic Exercise to Include: Strength training, Power training, Balance training, Coordination, Flexibilty training, Passive ROM and Active ROM For the Purpose of:: To decrease pain, To increase ROM, To improve nutrient delivery to tissue and To increase oxygenation perfusion Text: Thank you for the opportunity to evaluate your patient. For Medicare and Medicare HMO plans, please review the plan of care and approve it. It will need to be FAXED BACK to us at [phone] for Medicare purposes. For Medicare only, by signing this I certify the plan of care. Please let me know if there are questions or concerns regarding this plan of care. Physician Signature : Date:
== END 2025-01-29 19:00 | disposition home or self-care (01) ==
LOC: PT 06:40
PROVIDERS: PCP Family Medicine; Referring Provider Specialist; Visit Provider Specialist
DX: M25.361 Other instability, right knee (principal); M17.11 Unilateral primary osteoarthritis, right knee; Z96.651 Presence of right artificial knee joint
CPT/HCPCS: 97110; 97161

== ENCOUNTER → 2025-07-02 | Outpatient (CLI) | payer OTHER, SELFPAY ==
[2023-09-28 09:26] VITALS: BMI 37.2
--- OUTSIDE RECORDS SUMMARY | 2025-07-02 08:59 | XMS RPT_ITS | CCD ---
Author Organization [facility] Care Team Providers Care Flexible Nanny Name Role Phone Dr. Bro Herrera Primary Care Provider Dr. Carlos Mcclellan Attending Provider Dr. rBo Herrera Primary Care Provider Dr. Bro Herrera Referring Provider Dr. Carlos Diggs Attending Provider [phone] Carlos Diggs Other Provider Carlos Diggs MD Unavailable Ashu Herrera MD Primary Care Provider Dr. Bro Herrera Primary Care Provider Dr. Brice Sanon Attending Provider [phone] CHELLE CONRAD Referring Provider [phone] CHELLE CONRAD Other Provider Dr. Rancho Solomon Attending Provider [phone] ANA PAYNE Attending Unavailable ANA PAYNE Referring Unavailable ASHU HERRERA Primary Care Unavailabl e ASHU HERRERA Referring Unavailabl e ASHU HERRERA Primary Care Unavailabl e ANA PAYNE Attending Unavailable ASHU HERRERA Primary Care Unavailabl e CHELLE CONRAD Attending Unavailable CHELLE CONRAD Referring Unavailable ASHU HERRERA Primary Care Unavailabl e CHELLE CONRAD Referring Unavailable CHELLE CONRAD Attending Unavailable CARLOS DIGGS Referring Unavailable ASHU HERRERA Primary Care Unavailabl e GANAPAANDREA, ANA Escobar Attending Unavailable ASHU HERRERA Primary Care Unavailabl e CHELLE CONRAD Attending Unavailable CHELLE CONRAD Referring Unavailable GANJAY, ANA Escobar Attending Unavailable ASHU HERRERA Primary Care Unavailabl e ASHU HERRERA Referring Unavailabl e VINICIUS MULLER Attending Unavailable ASHU HERRERA Primary Care Unavailabl e ASHU HERRERA Referring Unavailabl e ASHU HERRERA Primary Care Unavailabl e CALEB, ASHU Mustafa Primary Care Unavailabl e CALEB, ASHU Mustafa Primary Care Unavailabl e CHELLE CONRAD Attending Unavailable CHELLE CONRAD Referring Unavailable CONSULT, LIFESTYLE MEDICINE Consulting Unav ailable ASHU HERRERA Primary Care Unavailabl e GANJAY, ANA Escobar Admitting Unavailable ELMER, ANA Escobar Attending Unavailable Dr. Bro Herrera Primary Care Provider Dr. Bro Herrera Referring Provider Catrachito PROCUREMENT OFFICER, PROCUREMENT OFFICER-C Iman Attending Provider Dr. Carlos Diggs Attending Provider Dr. Bro Herrera Primary Care Provider Dr. Bro Herrera Referring Provider Catrachito CHONG, CASTILLO-C Iman Attending Provider Dr. Carlos Diggs Attending Provider Dr. Ashu Herrera Primary Care Provider [phone] Dr. Ashu Herrera Referring Provider Ashu Herrera Referring Unavailable Iman Winston NP Attending Unavailable Ashu Herrera Primary Care Unavailable Iman Winston NP Referring Unavailable Carlos Diggs Attending Unavailable Ashu Herrera Primary Care Unavailable Iman Winston NP Attending Unavailable Iman Winston NP Referring Unavailable Ashu Herrera Primary Care Unavailable Michael Mancera Attending Unavailable Michael Mancera Referring Unavailable Ashu Herrera Primary Care Unavailable Medications Current Medications Medication Drug Class(es) Dates Sig (Normalized) Sig (Original) amoxicillin 500 mg oral capsule (7 sources) Penicillin-class Antibacterial Start: 08-01-2023 End: 10-31-2023 Amoxicillin Active 2000 MG PO .COMPLEX 4 October 31, 2023 8:38am 2,000 mg orally 30-60minutes prior to procedure; aspirin 81 mg delayed release oral tablet (8 sources) Platelet Aggregation Inhibitor, Nonsteroidal Anti-inflammatory Drug Start: 08-01-2023 take 1 tablet by mouth once daily Aspirin (Adult Aspirin Regimen) 81 mg tablet,delayed release (DR/EC) Active 81 MG PO DAILY August 01, 2023 1:00am Start: 05-15-2023 take 36-36.9 tablets by mouth once daily Aspirin [address] tablet Indications: Aortic stenosis due to bicuspid aortic valve , Dizziness , Pre-operative clearance , BRADEN (obstructive sleep apnea) , Heart murmur , Chewing tobacco nicotine dependence, uncomplicated , Abnormal blood chemistry , Class 2 obesity due to excess calories with body mass index (BMI) of 36.0 to 36.9 in adult, unspecified whether serious comorbidity present , Abnormal echocardiogram , Fatigue, unspecified type Take 1 tablet by mouth daily. 30 tablet 1 05/15/2023 Active metoprolol tartrate 50 mg oral tablet (18 sources) beta-Adrenergic Evangelista Start: 08-01-2023 End: 09-17-2023 take 25 mg by mouth twice daily Metoprolol Tartrate Active 25 MG PO TWICE A DAY September 17, 2023 4:54pm Start: 08-01-2023 End: 08-01-2023 take 50 mg by mouth twice daily Metoprolol Tartrate Discontinued 50 MG PO TWICE A DAY August 01, 2023 1:00am August 01, 2023 2:54pm Start: 05-15-2023 take 36-36.9 tablets by mouth twice daily Metoprolol 25 MG tab regular release Indications: Aortic stenosis due to bicuspid aortic valve , Dizziness , Pre-operative clearance , BRADEN (obstructive sleep apnea) , Heart murmur , Chewing tobacco nicotine dependence, uncomplicated , Abnormal blood chemistry , Class 2 obesity due to excess calories with body mass index (BMI) of 36.0 to 36.9 in adult, unspecified whether serious comorbidity present , Abnormal echocardiogram , Fatigue, unspecified type Take 0.5 tablets by mouth 2 times daily. 60 tablet 1 05/15/2023 Active NON-FORMULARY (4 sources) NON-FORMULARY CP AP 0 Active Completed/Discontinued Medications Medication Drug Class(es) Dates Sig (Normalized) Sig (Original) acetaminophen 325 mg oral tablet (1 source) Start: 05-28-2023 End: 07-06-2023 take 2 tablets by mouth every four hours as needed Acetaminophen 325 MG tablet Take 2 tablets by mouth every 4 hours as needed for Mild Pain. 200 tablet 0 05/28/2023 07/06/2023 Discontinued (Therapy completed) amiodarone hydrochloride 200 mg oral tablet (1 source) Antiarrhythmic Start: 05-29-2023 End: 07-06-2023 take 1 tablet by mouth once daily AMIOdarone 200 MG tablet Take 1 tablet by mouth daily for 8 days. 8 tablet 0 05/29/2023 07/06/2023 Discontinued (Therapy completed) atorvastatin 20 mg oral tablet (19 sources) HMG-CoA Reductase Inhibitor Start: 08-09-2022 End: 10-12-2023 take 1 tablet by mouth once daily Atorvastatin (Lipitor) 20 mg tablet Discontinued 20 MG PO DAILY September 17, 2023 4:54pm October 12, 2023 10:45am take 0.5 tablet by mouth once da hermann Atorvastatin 20 MG tablet Take 0.5 tablets by mouth daily. 0 Active take 10 mg by mouth once daily A torvastatin 20 MG tablet Take 10 mg by mouth daily. 0 Active cyclobenzaprine hydrochloride 10 mg oral tablet (9 sources) Muscle Relaxant Start: 04-15-2020 End: 07-21-2022 take 10 mg by mouth three times daily Cyclobenzaprine Discontinued 10 MG PO THREE TIMES A DAY April 15, 2020 12:00am July 21, 2022 4:39pm diazePAM 5 mg oral tablet (1 source) Benzodiazepine Start: 07-04-2023 End: 07-06-2023 Diazepam 5 MG tablet Indications: Situational anxiety Please take 1 tablet 1-2 hours prior to the scan, you can take another tablet prior to going into the scanner if needed. 2 tablet 0 07/04/2023 07/06/2023 Discontinued (Therapy completed) furosemide 40 mg oral tablet (1 source) Loop Diuretic Start: 05-28-2023 End: 07-06-2023 take 1 tablet by mouth twice daily before mealtime, then take 0.5 tablet by mouth twice daily before mealtime, then take 0.5 tablet by mouth once daily furOSEmide 40 MG tablet Take 1 tablet by mouth 2 times daily (take before meals) for 3 days, THEN 0.5 tablets 2 times daily (take before meals) for 3 days, THEN 0.5 tablets daily for 14 days. 16 tablet 0 05/28/2023 07/06/2023 Discontinued (Therapy completed) Gadobutrol (GADAVIST) 1 MMOL/ML injection 1-30 mL (1 source) Start: 07-06-2023 End: 07-06-2023 Gadobutrol (GADAVIST) 1 MMOL/ML injection 1-30 mL iohexol (OMNIPAQUE) 350 MG/ML injection 1-171 mL (1 source) Start: 05-15-2023 End: 05-15-2023 iohexol (OMNIPAQUE) 350 MG/ML injection 1-171 mL magnesium oxide 400 mg oral tablet (1 source) Start: 05-28-2023 End: 07-06-2023 take 2 tablets by mouth twice daily, then take 1 tablet by mouth twice daily magnesium oxide 400 (240 Mg) MG Take 2 tablets by mouth 2 times daily for 6 days, THEN 1 tablet 2 times daily for 14 days. 52 tablet 0 05/28/2023 07/06/2023 Discontinued (Therapy completed) naproxen 500 mg oral tablet (9 sources) Nonsteroidal Anti-inflammatory Drug Start: 04-15-2020 End: 07-21-2022 take 500 mg by mouth twice daily as needed Naproxen Discontinued 500 MG PO TWICE DAILY NEEDED April 15, 2020 1:54pm July 21, 2022 4:39pm oxyCODONE hydrochloride 5 mg oral tablet (1 source) Opioid Agonist Start: 05-28-2023 End: 07-06-2023 take 1 tablet by mouth every six hours as needed for pain oxyCODONE 5 MG tablet Indications: S/P AVR Take 1 tablet by mouth every 6 hours as needed for Moderate Pain or Severe Pain for up to 7 days. 28 tablet 0 05/28/2023 07/06/2023 Discontinued (Therapy completed) microencapsulated potassium chloride 20 meq extended release oral tablet (1 source) Start: 05-28-2023 End: 07-06-2023 take 1 tablet by mouth twice daily, then take 1 tablet by mouth once daily Potassium chloride 20 MEQ Tab CR tablet Take 1 tablet by mouth 2 times daily for 6 days, THEN 1 tablet daily for 14 days. 26 tablet 0 05/28/2023 07/06/2023 Discontinued (Therapy completed) predniSONE 20 mg oral tablet (9 sources) Start: 04-15-2020 End: 07-21-2022 take 40 mg by mouth once daily at mealtime Prednisone Discontinued 40 MG PO DAILY April 15, 2020 12:00am July 21, 2022 4:40pm With food sennosides, longterm 8.6 mg oral tablet (1 source) Start: 05-28-2023 End: 07-06-2023 take 1 tablet by mouth every twelve hours as needed Senna 8.6 MG tablet Take 1 tablet by mouth every 12 hours as needed for Constipation. 60 tablet 0 05/28/2023 07/06/2023 Discontinued (Therapy completed) 20 ml sodium chloride 9 mg/ml injection (2 sources) Start: 07-06-2023 End: 07-06-2023 Sodium chloride (PF) 0.9 % injection 1-100 mL Start: 05-15-2023 End: 05-15-2023 Sodium chloride (PF) 0.9 % i njection 1-100 mL Problems Problem Classification Problem Date Documented Date Episodic/Chronic Abdominal pain (9 sources) Flank pain; Translations: [Unspecified abdominal pain] 04-16-2020 Episodic Cardiac and circulatory congenital anomalies (9 sources) Bicuspid aortic valve; Translations: [Congenital insufficiency of aortic valve] Onset: 12-11-2022 12-11-2022 Chronic Cardiac dysrhythmias (5 sources) Tachycardia; Translations: [Tachycardia, unspecified] 08-16-2023 Episodic Conditions associated with dizziness or vertigo (2 sources) Dizziness and giddiness; Translations: [Dizziness and giddiness] Onset: 05-24-2023 Episodic Disorders of lipid metabolism (5 sources) Hyperlipidemia; Translations: [Other hyperlipidemia] Onset: 12-11-2022 12-11-2022 Chronic Heart valve disorders (20 sources) Aortic stenosis, non-rheumatic ; Translations: [Nonrheumatic aortic (valve) stenosis] Onset: 12-11-2022 07-21-2022 Chronic Heart valve disorders (3 sources) Heart murmur; Translations: [Cardiac murmur, unspecified] Onset: 05-15-2023 05-15-2023 Episodic Malaise and fatigue (2 sources) Other fatigue; Translations: [Other fatigue] Onset: 05-15-2023 Episodic Nonspecific chest pain (6 sources) Chest pain; Translations: [Chest pain, unspecified] 08-15-2023 Episodic Other nutritional; endocrine; and metabolic disorders (3 sources) Morbid obesity; Translations: [Morbid (severe) obesity due to excess calories] Onset: 05-15-2023 05-15-2023 Chronic Other nutritional; endocrine; and metabolic disorders (2 sources) Other obesity due to excess calories; Translations: [Other obesity due to excess calories] Onset: 05-15-2023 Chronic Other nutritional; endocrine; and metabolic disorders (2 sources) Body mass index (BMI) 36.0-36.9, adult; Translations: [Body mass index (BMI) 36.0-36.9, adult] Onset: 05-15-2023 Chronic Other screening for suspected conditions (not mental disorders or infectious disease) (14 sources) Patient encounter status; Translations: [Encounter for screening for malignant neoplasm of intestinal tract, unspecified] Onset: 05-15-2023 07-21-2022 Episodic Residual codes; unclassified (9 sources) Obstructive sleep apnea syndrome; Translations: [Obstructive sleep apnea (adult) (pediatric)] 07-21-2022 Chronic Residual codes; unclassified (2 sources) Obstructive sleep apnea (adult) (pediatric); Translations: [Obstructive sleep apnea (adult) (pediatric)] Onset: 05-15-2023 Chronic Residual codes; unclassified (2 sources) H/O cardiac surgery; Translations: [Other specified postprocedural states] 07-06-2023 Episodic Residual codes; unclassified (2 sources) Other specified postprocedural states; Translations: [Other specified postprocedural states] Onset: 07-06-2023 Episodic Sprains and strains (9 sources) Lumbosacral strain; Translations: [Strain of muscle, fascia and tendon of lower back, initial encounter] 07-21-2022 Episodic Substance-related disorders (2 sources) Nicotine dependence, chewing tobacco, uncomplicated; Translations: [Nicotine dependence, chewing tobacco, uncomplicated] Onset: 05-15-2023 Chronic Results Test Name Value Interpretation Reference Range Facility Inital Evaluation (1) - PTon 01-29-2025 Inital Evaluation (1) - PT [facility] [address] [place] [address] / REHABILITATION SERVICES INITIAL EVALUATION MR#: [id number] Acct: [id number] Name: JONAS KENT Rep #: [id number] : 1965 59 From: Cmaeron David DPT Referring Dr.: Dr. Michael Mancera MD Status: RE G RCR Insurance: [employer]/[facility] SELF PAY INSURANCE Patient's Visit Information Visit Information Visit Information: JONAS KENT is a 59 year old M referred to Physical Therapy by Dr. Michael Mancera MD with a diagnosis of R knee instability, presence of R TKA. Date of Evaluation: 01/29/25 Physical Therapist: Cameron David DPT Visit Plan Frequency: 1x/Week Duration: 4 Weeks Plan: 1) Pt. given quad, HS, and glute strengthening exercises to work on in mid range and end range extension. He desires to work on these at home at this point in time. He is to trial these for 1 month then follow back up with PT. Subjective Subjective: Pt. is here today for his initial evaluation with diagnosis of R knee instability, presence of R TKA. Pt. reports physician believes the polymer in wearing out in his knee and is hopeful to strengthening around his knee to reduce this from giving out on him. 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 Pt. reports his knee feels like its going to give out laterally and has intense pain when it does. It resolves right when straightens it out. He reports having a period of swelling and heat 1 month ago, but that has since resolved. Pt. is hopeful to get exercises to work on his own at home in order to strengthening his BLEs. Pain R knee: Pain Intensity (Out of 10): 0 Pain Intensity Range: 0 and 4 Comment: only sharp when he has his incidences. Objective Objective: POSTURE: Pt. has normal posture in stance, slight loss of TKE during stance on RLE. PALPATION: Pt. has no pain throughout R knee. ROM: R knee 0-5-118deg. Pt. has tightness in B Hamstrings as well. NEURO: normal bilaterally. ROM: R knee: 0-3-118deg. Tightness in B HS. MMT: R knee: ext 79.1#, flex 49.7#; hip: flex 70.4#, abd 105.3#, ext 78.4# L knee: ext 66.8#, flex 43.9#; hip: flex 80.9#, abd 93.9#, ext 74.9# GAIT: fairly normal gait pattern. STAIRS: Pt. has normal gait pattern without issues. 30 sec sit to stand rep test 29 without use of UEs. Balance/Special Test Scores Lower Extremity Functional Score: 59 30 Second Chair Rise Test Seconds: 29 Goals Goal 1:: LTG: Pt. to be I with HEP for LE strengthening. Goal Time Frame: 4-6 Weeks Goal 2:: LTG: Pt. to have no occurrences of his knee giving out on him. Goal Time Frame: 4-6 Weeks Rehabilitation Potential Physical Therapy Diagnosis: Pt. has signs of symptoms of R knee instability and presence of R TKA. Pt. is overall fairly strong in his BLEs, R being stronger than L. I did recommend that he work on stability exercises especially as his knee approached TKE. Pt. was give exercises for the above today. He is going to work on these I for 1 month. Rehabilitation Potential: Good Anticipated Interventions Patient/Client Instruction: Educate patient on: Condition, Plan of Care, Risk Factors and Benefits of Fitness Program For the Purpose of:: To foster healthy habits, To improve decision making, To facilitate caregiver knowledge, To improve self management, To prevent re-injury and To improve ability to perform tasks related to life management Therapeutic Exercise to Include: Strength training, Power training, Balance training, Coordination, Flexibilty training, Passive ROM and Active ROM For the Purpose of:: To decrease pain, To increase ROM, To improve nutrient delivery to tissue and To increase oxygenation perfusion Text: Thank you for the opportunity to evaluate your patient. For Medicare and Medicare HMO plans, please review the plan of care and approve it. It will need to be FAXED BACK to us at [phone] for Medicare purposes. For Medicare only, by signing this I certify the plan of care. Please let me know if there are questions or concerns regarding this plan of care. Physician Signature: Date:__ 01/29/25 0757 CC: Dr. Asuh Herrera MD; Dr. Michael Mancera MD CLS Signed Normal [facility] Echo Complete W/ Contraston 05-07-2024 Echo Complete W/ Contrast [facility] [address] [place] [address] Echo Complete W/ Contrast 05/07/24 0659 MR#: [id number] Acct: [id number] Name: JONAS KENT Rep #: [id number] : 1965 59 From: Carlos Diggs MD Attending Dr: Iman Winston NP-C Status: [facility] Ordering Dr: Iman Winston PROCUREMENT OFFICER PROCUREMENT OFFICER-C Date: 05/07/24 Location: [facility] Sex: M C Admitted: Reason For Study: VALVE REPLACEMENT-EVAL Procedure This was a 2D Doppler, Color Flow transthoracic echocardiogram. The study was technically difficult. Due to body habitus. Contrast injection was performed. Exam performed in department. Left Ventricle Normal LV size. Left ventricular systolic function is normal. The left ventricular ejection fraction is 55 %. Stage 1 diastolic dysfunction. No regional wall motion abnormalities noted. Right Ventricle Normal RV size. Normal systolic function. Atria Normal left atrium. Normal right atrium. Mitral Valve Normal mitral valve. Tricuspid Valve Normal tricuspid valve. Mild tricuspid valve insufficiency. Aortic Valve Mean aortic valve gradient 11 mmHg. Normal prosthetic aortic valve. Pulmonic Valve The pulmonic valve is not well visualized. Great Vessels Normal aortic root. The pulmonary artery is normal size. Normal inferior vena cava. Pericardium/Pleural No pericardial effusion. Medication 22 gauge I.V. with prn adaptor inserted into right arm. Diluted definity 1.5ml given slow IV push to enhance endocardial definition. MMode/2D Measurements Calculations LVIDd: 5.2 cm IVSd: 1.0 cm Ao root diam: 3.3 cm LVIDs: 3.8 cm LVPWd: 0.96 cm RVDd: 3.1 cm FS: 26.4 % LAV(MOD-bp): 45.0 ml LVAd ap4: 24.8 cm2 LVAd ap2: 29.1 cm2 LAV(MOD-bp) Indexed: 19.8 ml/m2 LVLd ap4: 7.9 cm LVLd ap2: 8.7 cm LAV(MOD-sp2): 44.0 ml EDV(MOD-sp4): 63.2 ml EDV(MOD-sp2): 79.6 ml LAV(MOD-sp4): 44.7 ml EDV(sp4-el): 65.8 ml EDV(sp2-el): 82.9 ml LVAs ap4: 15.0 cm2 LVAs ap2: 15.8 cm2 LVLs ap4: 6.9 cm LVLs ap2: 7.3 cm ESV(MOD-sp4): 26.9 ml ESV(MOD-sp2): 27.7 ml ESV(sp4-el): 27.9 ml ESV(sp2-el): 29.0 ml EF(MOD-sp4): 57.5 % EF(MOD-sp2): 65.2 % EF(sp4-el): 57.6 % SV(MOD-sp4): 36.3 ml SV(MOD-sp2): 51.9 ml SV(sp4-el): 37.9 ml LA A4 area: 16.2 cm2 LA dimension(2D): 3.9 cm RA A4 area: 12.1 cm2 TAPSE: 1.9 cm Time Measurements MV dec time: 0.26 sec Doppler Measurements Calculations MV E max jenaro: 71.3 cm/sec Lat Peak E' Jenaro: 8.5 cm/sec Med Peak E' Jenaro: 8.1 cm/sec MV A max jenaro: 76.0 cm/sec E/E' lat: 8.3 E/E' med: 8.8 MV E/A: 0.94 MV V2 max: 96.4 cm/sec MV P1/2t max jenaro: 100.5 cm/sec Ao V2 max: 221.6 cm/sec MV max P.7 mmHg MV P1/2t: 105.2 msec Ao max P.7 mmHg MV V2 mean: 58.3 cm/sec Ao V2 mean: 160.4 cm/sec MV mean P.5 mmHg MV dec slope: 279.7 cm/sec2 Ao mean P.2 mmHg MV V2 VTI: 38.9 cm MVA(P1/2t): 2.1 cm2 Ao V2 VTI: 48.2 cm AV (velocity ratio): 0.62 LV V1 max: 131.1 cm/sec PA V2 max: 106.8 cm/sec TR max jenaro: 179.4 cm/sec LV V1 max P.2 mmHg PA V2 mean: 70.2 cm/sec TR max P.9 mmHg LV V1 mean P.5 mmHg LV V1 mean: 99.0 cm/sec LV V1 VTI: 30.0 cm ECHO/Echo Complete W/ Contrast Interpretation Summary Normal LV size. Left ventricular systolic function is normal. The left ventricular ejection fraction is 55 %. Stage 1 diastolic dysfunction. Normal prosthetic aortic valve. Mean aortic valve gradient 11 mmHg. Ordering Physician: Iman Winston Referring Physician: Ashu Herrera Performed By: Cathryn Ashley, TOBINCS, RVT 05/07/24 1310 Date Carlos Diggs MD CC: JANAK Winston; Dr. Ashu Herrera MD Date Dictated: 05/07/24 0659 Date Transcribed: 05/07/24 1311 Layout Operator: Signed Normal [facility] Lipid Profileon 05-07-2024 Cholesterol [Mass/Vol] 127 mg/dL Normal 200 [facility] Comment on above: Result Comment: <200 mg/dL Desirable 200-240 mg/dL Borderline >240 mg/dL High Risk Performed By: #### L 500.4100, L500.3400 #### [facility] [address] [place], [address] Cholesterol in HDL [Mass/Vol] 45 mg/dL Normal [facility] Comment on above: Result Comment: The drugs N-Acetylcysteine and Metamizole may falsely depress this assay. Reference Range HDL <40 mg/dL Low HDL Cholesterol HDL >or= 60 mg/dL High HDL Cholesterol Performed By: #### L 500.4100, L500.3400 #### [facility] [address] [place], [address] Cholesterol in LDL [Mass/Vol] 57 mg/dL Normal 0-130 [facility] Comment on above: Performed By: #### L 500.4100, L500.3400 #### [facility] [address] [place], [address] Cholesterol in VLDL [Mass/Vol] 25 mg/dL Normal 5-40 [facility] Comment on above: Performed By: #### L 500.4100, L500.3400 #### [facility] [address] [place], [address] Triglyceride [Mass/Vol] 125 mg/dL Normal [facility] Comment on above: Result Comment: The drugs N-Acetylcysteine and Metamizole may falsely depress this assay. Serum Triglycerides Reference Interval Normal <150 mg/dL Borderline high 150 - 199 mg/dL High 200 - 499 mg/dL Very High > or = 500 mg/dL Performed By: #### L 500.4100, L500.3400 #### [facility] [address] [place], [address] Liver Profileon 05-07-2024 Albumin [Mass/Vol] 3.7 g/dL Normal 3.2-5.0 [facility] Comment on above: Performed By: #### L 500.4100, L500.3400 #### [facility] [address] [place], [address] ALK P 109 U/L Normal 45-117 [facility] Comment on above: Performed By: #### L 500.4100, L500.3400 #### [facility] [address] [place], [address] ALT [Catalytic activity/Vol] 31 U/L Normal 16-61 [facility] Comment on above: Performed By: #### L 500.4100, L500.3400 #### [facility] [address] [place], [address] AST [Catalytic activity/Vol] 21 U/L Normal 15-37 [facility] Comment on above: Performed By: #### L 500.4100, L500.3400 #### [facility] [address] [place], [address] Bilirubin [Mass/Vol] 0.60 mg/dL Normal 0.20-1.00 [facility] Comment on above: Result Comment: For patients on eltrombopag therapy, use of Dimension [place] TBIL is not recommended. Performed By: #### L 500.4100, L500.3400 #### [facility] [address] [place], [address] Bilirubin.direct [Mass/Vol] 0.17 mg/dL Normal 0.00-0.30 [facility] Comment on above: Performed By: #### L 500.4100, L500.3400 #### [facility] [address] [place], [address] Globulin (S) [Mass/Vol] 3.7 g/dL Normal 2.2-4.2 [facility] Comment on above: Performed By: #### L 500.4100, L500.3400 #### [facility] [address] [place], [address] T PROT 7.4 g/dL Normal 6.4-8.2 [facility] Comment on above: Performed By: #### L 500.4100, L500.3400 #### [facility] Laboratory [address] [place], [address] Cardiology Visit Reporton Cardiology Visit Report [facility] [address] [place] [address] OFFICE VISIT Date of Service: 04/30/24 MR#: [id number] Acct: [id number] Name: JONAS KENT Rep #: [id number] : 1965 Provider: JANAK menezes Age/Sex: 58/M Location: [facility] Status: Signed HPI HPI History of Present Illness Details: This is a pleasant 58-year-old man who presents to the office today for a cardiovascular follow-up visit. He has no previous cardiac history who was noted to have a heart murmur. He has had some difficulty sleeping but that is not new and he uses a CPAP mask. He has had some shortness of breath with exertion and occasionally coughing after eating. As part of his work-up he underwent an echocardiographic evaluation which demonstrated an ejection fraction of 55% the aortic valve was not very well visualized but by Doppler criteria there appeared to be moderately severe aortic stenosis with a peak gradient of 59 mmHg and a mean of 39 mmHg. He had previously had a calcium score CT scan in May 2020 demonstrating a total Agatston score of 69.5. His lipid profile demonstrates a total cholesterol of 243 HDL of 44 and LDL of 166. A pharmacologic myocardial perfusion stress test in April 2020 was negative. He underwent a cardiac catheterization on 12/08/2022, which demonstrated severe aortic valve stenosis, and moderate aortic valve calcification. He was referred to [facility] for valve replacement surgery. On 05/24/2023: Dr. Ana Payne performed Aortic Valve Replacement with 25mm Langford Inspiris. From a cardiac standpoint, the patient is doing well. He denies any palpitations, chest pain, pressure or heaviness. He denies SOB, Orthopnea, and PND. He does not have bleeding issues; no blood in urine, stool or nosebleeds. He denies any decrease in energy level, myalgias, or claudication. He does not have edema, or sudden weight gain. He denies dizziness, lightheadedness, syncopal or near syncopal episodes, and headaches. Intake Vital Signs 10/31/23 08:26 04/30/24 13:32 04/30/24 13:34 Height 5 ft 9 in 5 ft 9 in 5 ft 9 in Weight: 249 lb BMI 36.7 BP 117/80 Blood Pressure Location Lt brachial Position Sitting Respiration 20 H Pulse 60 Pulse Source Monitor Pulse Oximetry (%) 95 Intake Visit Reasons: 6 M FU Sand Conditioner Required: No Is patient in pain?: No Allergies No Known Allergies Allergy (Verified 04/30/24 14:38) Medications ???Medication ???Instructions ???Recorded ???Confirmed ???Type aspirin 81 mg tablet,delayed 81 mg PO DAILY 08/01/23 04/30/24 History release (Adult Aspirin Regimen) metoprolol tartrate 50 mg tablet 25 mg (1/2 x 50 mg) PO BID #90 tabs 09/17/23 04/30/24 Rx amoxicillin 500 mg capsule 2,000 mg (4 x 500 mg) PO .COMPLEX 10/31/23 04/30/24 Rx #4 caps atorvastatin 20 mg tablet (Lipitor) 20 mg PO DAILY #90 tabs 04/30/24 04/30/24 Rx PFSH Medical History BRADEN on CPAP Surgical History H/O aortic valve replacement H/O lumbar discectomy History of total right knee replacement H/O repair of right rotator cuff History of tonsillectomy History of repair of anterior cruciate ligament of left knee Family History Father Myocardial infarction, Onset Age: 48 Hypertension Diabetes Social History Smoking Status: Never smoker Smokeless tobacco user: chewing tobacco alcohol intake: never ROS Const Const: Negative for fatigue, weakness, fever(s), headache(s), chills, frequent falls, weight gain or weight loss Eyes Eyes: Negative for blind spots, loss of peripheral vision, transient loss of vision, blurry vision, change in vision, double vision, floaters or tunnel vision ENT ENT: Negative for headache(s), dizziness, Nosebleed/epistaxis, balance problems or neck pain Cardio Chest Pain: No Palpitations: No Edema: None Muscle aches with walking: None Resp Respiratory: Negative for SOB with activity, SOB at rest or SOB orthopnea SOB lying down GI GI: Negative nausea, vomiting, heartburn, bloating, vomiting blood/hematemesis, bright, red blood in stools or black,tarry stools Musc Musc: Negative for muscle aches/ myalgia, muscle weakness, joint pain or balance problems Neuro Neuro: Negative for dizziness, lightheadedness, near syncope, syncope, orthostatic symptoms, frequent falls, headache(s), weakness, blurry vision or double vision Miah Hematologic/Lymphatic: Negative for easy bleeding or easy bruising Endo Endo: Negative for fatigue Cardiology Exam Const Appearance: cooperative, healthy appearing, no acute distress, well developed a (more content not included)... Normal [facility] Absolute lymphocyte countOrd ered By: Edgardo Mendoza on 08-15-2023 Lymphocytes Auto (Unsp spec) [#/Vol] 2.00 10*3/uL 0.83-4.51 [facility] Automated lymphocyte count a s percentage of total leukocytesOrdered By: Edgardo Mendoza on 08-15-2023 Lymphocytes/100 WBC Auto (Unsp spec) 17.9 % 19-41 [facility] Basophil percentageOrdered B y: Edgardo Mendoza on 08-15-2023 Basophils/100 WBC (Bld) 0.2 % 0-1 [facility] Chloride [Moles/Vol] 105 mmol/L 98-107 [facility] Eosinophils/100 WBC (Bld) 0.3 % 0-5 [facility] Glucose [Mass/Vol] 124 mg/dL 74-106 [facility] Comment on above: Fasting Glucose resu lt from 100 to 125 mg/dL suggests IMPAIRED HOMEOSTASIS per A.D.A. criteria. Hemoglobin (Bld) [Mass/Vol] 14.3 g/dL 13.0-16.5 [facility] Monocytes/100 WBC (Bld) 8.0 % 0-10 [facility] Neutrophils (Bld) [#/Vol] 8.2 10*3/uL 2.0-7.7 [facility] Neutrophils/100 WBC (Bld) 73.2 % 47-70 [facility] Potassium [Moles/Vol] 3.9 mmol/L 3.5-5.1 [facility] Sodium [Moles/Vol] 134 mmol/L 136-145 [facility] WBC (Bld) [#/Vol] 11.2 10*3/uL 4.4-11.0 [facility] Determination of erythrocyte mean corpuscular volume (MCV)Ordered By: Edgardo Mendoza on 08-15-2023 MCV (RBC) [Entitic vol] 85.2 fL 80-94 [facility] Erythrocyte distribution wid th ratioOrdered By: Edgardo Mendoza on 08-15-2023 Erythrocyte distribution width (RBC) [Ratio] 14.4 % 11.6-14.6 [facility] Erythrocyte distribution wid th standard deviationOrdered By: Edgardo Mendoza on 08-15-2023 Erythrocyte distribution width (RBC) [Entitic vol] 44.8 fL 35.1-43.9 [facility] Hematocrit Auto (Bld) [Volum e fraction]Ordered By: Edgardo Mendoza on 08-15-2023 Hematocrit (Bld) [Volume fraction] 43.6 % 40-54 [facility] Immature granulocytes/100 WB C Auto (Bld)Ordered By: Edgardo Mendoza on 08-15-2023 Immature granulocytes/100 WBC (Bld) 0.400 % 0.0-0.9 [facility] Comment on above: IG% - Immature Granu locytes (promyelocytes, myelocytes and metamyelocytes) > 1% indicates that a LEFT SHIFT is Present. Laboratory - Chemistry and C hemistry - challengeOrdered By: Edgardo Mendoza on 08-15-2023 CO2 [Moles/Vol] 26.0 mmol/L 21.0-32.0 [facility] Urea nitrogen/Creatinine [Mass ratio] 17.0 mg/mg 10-20 [facility] Laboratory - Hematology and Cell countsOrdered By: Edgardo Mendoza on 08-15-2023 MCH (RBC) [Entitic mass] 27.9 pg 27.0-32.0 [facility] MCHC (RBC) [Mass/Vol] 32.8 g/dL 32-36 [facility] Nucleated RBC/100 WBC (Bld) [Ratio] 0 % 0-5 [facility] Platelets (Bld) [#/Vol] 223 10*3/uL 150-450 [facility] Laboratory - Microbiology an d Antimicrobial susceptibilityOrdered By: Edgardo Mendoza on 08-15-2023 SARS-CoV-2 (COVID-19) RNA RINKU+probe Ql (Unsp spec) [facility] SARS-CoV-2 (COVID-19) RNA RINKU+probe Ql (Unsp spec) [facility] No Panel InformationOrdered By: Edgardo Mendoza on 08-15-2023 Troponin I High Sensitivity 9 pg/mL 3.0-78.0 [facility] Comment on above: Please Note: New Estefania t Units and Gender Specific Reference Ranges. For more information see Policy Stat Procedure [place] High Sensitivity Troponin (TNIH) and attachments. D-Dimer Quantitative (PE/DVT) 1.16 FEU/ug/m 0.27-0.49 [facility] Comment on above: D-Dimer ELEVATED (>0 .49): Additional studies and clinicalassessments are indicated to conclude diagnosis of:Deep Vein Thrombosis (DVT) or Pulmonary Embolism (PE)CRITICAL VALUE VERIFIED. CALLED TO MAIOXX30/24/24 1548 Maday Gregory.RESULTS READ BACK BY SAME . Estimated Creatinine Clearance Calc 126.65 ml/min [facility] Estimated GFR (MDRD) Amer 124 mL/min >60 [facility] Comment on above: GFR Calc Estimated GFR (MDRD) Non-Af Amer 103 mL/min >60 [facility] Comment on above: Non- GFR Calc Platelet mean volume Von-Ec ker (Bld) [Entitic vol]Ordered By: Edgardo Mendoza on 08-15-2023 Platelet mean volume (Bld) [Entitic vol] 10.2 fL 6.2-12.0 [facility] RBC Auto (Bld) [#/Vol]Ordere d By: Edgardo Mendoza on 08-15-2023 RBC (Bld) [#/Vol] 5.12 10*6/uL 4.6-6.2 [facility] Serum or plasma calcium rogers urement (mass/volume)Ordered By: Edgardo Mendoza on 08-15-2023 Calcium [Mass/Vol] 9.6 mg/dL 8.5-10.1 [facility] Serum or plasma creatinine m easurement (mass/volume)Ordered By: Edgardo Mendoza on 08-15-2023 Creatinine [Mass/Vol] 0.82 mg/dL 0.70-1.30 [facility] Comment on above: The validity of the calculated GFR & GFRAA in patients over 70 years has not been determined. Clinical correlation is essential. Serum or plasma urea nitroge n measurement (mass/volume)Ordered By: Edgardo Mendoza on 08-15-2023 Urea nitrogen [Mass/Vol] 14 mg/dL 7-18 [facility] Thin prep Papanicolaou smear with manual screeningOrdered By: Edgardo Mendoza on 08-15-2023 Thin prep Papanicolaou smear with manual screening 3 5-15 [facility] HEMATOCRITon 07-06-2023 Hematocrit (Bld) [Volume fraction] 41.7 % Normal 39.6-48.8 [facility] Comment on above: Performed By: #### S CRSB #### [facility] (DEFAULT) [address] [place] [address] Hematocrit (Bld) [Volume fraction] 41.7 % 39.6 - 48.8 % [facility] Interpretation and review of laboratory results Normal [facility] MR Heart cine for blood flow velocity mapping W contrast Niharika 07-06-2023 [facility] CMR Report Name: JONAS KENT : 1965 Scan Date: 2023-07-06 10:33:47 Electronically signed by Sheba Nascimento 14:42:28 VITALS HEIGHT: 69.02 in (175.30 cm) WEIGHT: 240.00 lbs (108.86 kgs) BSA: 2.23 m^2 BP: 147 / 81 mmHg BASELINE HR: 72 BPM FINAL IMPRESSION Low-normal LV function with mild non-ischemic fibrosis. No CMR specific features to suggest HCM or LV pseudoaneurysm/aneurys m. 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 LV cavity size is normal. LV systolic function is low-normal. No resting LVOT flow acceleration. Quantitative LVEF 50 %. VIABILITY: Late gadolinium enhancement imaging demonstrates mild patchy midmyocardial septal and superior/inferior RV insertion point non-ischemic fibrosis. RIGHT VENTRICLE: RV cavity size is normal. RV systolic function is normal. Quantitative RVEF 59 %. LV/RV SEPTUM: There is paradoxical septal motion (post-op). LA/RA SEPTUM: The atrial septum is intact. LEFT ATRIUM: LA cavity size is normal. RIGHT ATRIUM: RA cavity size is normal. PERICARDIUM: There is a trivial pericardial effusion. AORTIC VALVE: Aortic valve is bioprosthetic. The prosthetic aortic valve is well seated. Peak aortic valve velocity 2.1 cm/sec. MITRAL VALVE: There is trivial mitral regurgitation. TRICUSPID VALVE: There is trivial tricuspid regurgitation. OTHER FINDINGS: No definitive myocardial edema/inflammation by T2 mapping. Sternal wires present. Elevated R hemidiaphragm. CORE EXAM MEASUREMENTS VOLUMETRIC ANALYSIS -- . . LV Reference RV Reference +------+ +-- ----+ +---- --+ + EDV ml 177 (113-196) 146 (111-210) ml/m^2 79 (62-97) 66 (59-105) ESV ml 88 (29-74) 60 (25-85) ml/m^2 40 (15-37) 27 (13-42) CO L/min 5.92 5.78 L/min/m^2 2.65 2.59 MASS g 168 (107-184) g/m^2 75 (57-91) SV ml 88 (75-131) 86 (72-140) ml/m^2 40 (41-65) 39 (38-70) EF % 50 (58-76) 59 (53-79) '------+ +-- ----+ +---- --+ ' CARDIAC OUTPUT HR: 67 BPM LV DIMENSIONS -- WALL THICKNESS - ANTEROSEPTAL: 1 cm WALL THICKNESS - INFEROLATERAL: 0.8 cm LV ARUN: 5.9 cm LV ESD: 4.3 cm LA DIMENSIONS (LV SYSTOLE) -- DIAMETER: 4.7 cm AREA - 2 CHAMBER: 21 cm^2 LENGTH - 2 CHAMBER: 5.1 cm AREA - 4 CHAMBER: 25 cm^2 LENGTH - 4 CHAMBER: 6.6 cm VOLUME: 88 ml VOLUME NORMALIZED: 39.2 ml/m^2 RA DIMENSIONS (RV SYSTOLE) -- AREA - 4 CHAMBER: 18 cm^2 LENGTH - 4 CHAMBER: 4.4 cm EXTRACELLULAR VOLUME MEASUREMENT -- PRE-CONTRAST T1 MYOCARDIUM: 1279 msec PRE-CONTRAST T1 LV CAVITY: 1900 msec POST-CONTRAST T1 MYOCARDIUM: 560 msec POST-CONTRAST T1 LV CAVITY: 332 msec HEMATOCRIT: 41.7 % HEMATOCRIT DATE: ECV: 24 % SCAN INFO GENERAL SCANNER -- FISH NET MAKER: [employer] (more content not included)... CARDIOLOGY Sheba Nascimento, DO - 07/06/2023 [facility] CMR Report Name: JONAS KENT : 1965 Scan Date: 2023-07-06 10:33:47 Electronically signed by Sheba Nascimento 14:42:28 VITALS ========= ========= HEIGHT: 69.02 in (175.30 cm) WEIGHT: 240.00 lbs (108.86 kgs) BSA: 2.23 m^2 BP: 147 / 81 mmHg BASELINE HR: 72 BPM FINAL IMPRESSION ========= ========= Low-normal LV function with mild non-ischemic fibrosis. No CMR specific features to suggest HCM or LV pseudoaneurysm/aneurys m. 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 LV cavity size is normal. LV systolic function is low-normal. No resting LVOT flow acceleration. Quantitative LVEF 50 %. VIABILITY: Late gadolinium enhancement imaging demonstrates mild patchy midmyocardial septal and superior/inferior RV insertion point non-ischemic fibrosis. RIGHT VENTRICLE: RV cavity size is normal. RV systolic function is normal. Quantitative RVEF 59 %. LV/RV SEPTUM: There is paradoxical septal motion (post-op). LA/RA SEPTUM: The atrial septum is intact. LEFT ATRIUM: LA cavity size is normal. RIGHT ATRIUM: RA cavity size is normal. PERICARDIUM: There is a trivial pericardial effusion. AORTIC VALVE: Aortic valve is bioprosthetic. The prosthetic aortic valve is well seated. Peak aortic valve velocity 2.1 cm/sec. MITRAL VALVE: There is trivial mitral regurgitation. TRICUSPID VALVE: There is trivial tricuspid regurgitation. OTHER FINDINGS: No definitive myocardial edema/inflammation by T2 mapping. Sternal wires present. Elevated R hemidiaphragm. CORE EXAM ========= ========= MEASUREMENTS --------- VOLUMETRIC ANALYSIS -- . . LV Reference RV Reference +------+ +-- ----+ +---- --+ + EDV ml 177 (113-196) 146 (111-210) ml/m^2 79 (62-97) 66 (59-105) ESV ml 88 (29-74) 60 (25-85) ml/m^2 40 (15-37) 27 (13-42) CO L/min 5.92 5.78 L/min/m^2 2.65 2.59 MASS g 168 (107-184) g/m^2 75 (57-91) SV ml 88 (75-131) 86 (72-140) ml/m^2 40 (41-65) 39 (38-70) EF % 50 (58-76) 59 (53-79) '------+ +-- ----+ +---- --+ ' CARDIAC OUTPUT HR: 67 BPM LV DIMENSIONS -- WALL THICKNESS - ANTEROSEPTAL: 1 cm WALL THICKNESS - INFEROLATERAL: 0.8 cm LV ARUN: 5.9 cm LV ESD: 4.3 cm LA DIMENSIONS (LV SYSTOLE) -- DIAMETER: 4.7 cm AREA - 2 CHAMBER: 21 cm^2 LENGTH - 2 CHAMBER: 5.1 cm AREA - 4 CHAMBER: 25 cm^2 LENGTH - 4 CHAMBER: 6.6 cm VOLUME: 88 ml VOLUME NORMALIZED: 39.2 ml/m^2 RA DIMENSIONS (RV SYSTOLE) -- AREA - 4 CHAMBER: 18 cm^2 LENGTH - 4 CHAMBER: 4.4 cm EXTRACELLULAR VOLUME MEASUREMENT -- PRE-CONTRAST T1 MYOCARDIUM: 1279 msec PRE-CONTRAST T1 LV CAVITY: 1900 msec POST-CONTRAST T1 MYOCARDIUM: 560 msec POST-CONTRAST T1 LV CAVITY: 332 msec HEMATOCRIT: 41.7 % HEMATOCRIT DATE: ECV: 24 % SCAN INFO ========= ========= GENERAL --------- SCANNER -- FISH NET MAKER: [employer] MODEL: [email or web address] PULSE SEQUENCES: SSFP cine, 2D LGE segmented, 2D LGE single-shot, Pre-contrast T1 mapping, Post-contrast T1 mapping, T2 mapping, Phase contrast imaging, Fat-water imaging, Bright-blood SSFP morphology CONTRAST AGENT -- TYPE: Gadavist GD CONCENTRATION: 1.0 M VOLUME ADMINISTERED: 16 ml DOSAGE: 0.15 mmol/kg SETUP -- DATE OF EVENT: SCAN TYPE: Clinical PATIENT TYPE: Outpatient REASON(S) FOR SCAN: Abnormal resting echo, Other symptoms, HCM (known/suspect) OTHER, DESCRIBE:: pseudoaneurysm. Status post ca (more content not included)... [facility] Radiology Study observation (narrative) [facility] MR Heart cine for blood flow velocity mapping W contrast IVOrdered By: Sheba Nascimento on 07-06-2023 [facility] Work Phone: MRI CARDIAC WITH CONTRAST W/ VELOCITY FLOW MAP 07-06-2023 MRI CARDIAC WITH CONTRAST W/VELOCITY FLOW MAP [facility] CMR Report Name: DONTE JONAS F : 1965 Scan Date: 2023-07-06 10:33:47 Electronically signed by Sheba Nascimento 14:42:28 VITALS HEIGHT: 69.02 in (175.30 cm) WEIGHT: 240.00 lbs (108.86 kgs) BSA: 2.23 m^2 BP: 147 / 81 mmHg BASELINE HR: 72 BPM FINAL Low-normal LV function with mild non-ischemic fibrosis. No CMR specific features to suggest HCM or LV pseudoaneurysm/aneurys m. 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 LV cavity size is normal. LV systolic function is low-normal. No resting LVOT flow acceleration. Quantitative LVEF 50 %. VIABILITY: Late gadolinium enhancement imaging demonstrates mild patchy midmyocardial septal and superior/inferior RV insertion point non-ischemic fibrosis. RIGHT VENTRICLE: RV cavity size is normal. RV systolic function is normal. Quantitative RVEF 59 %. LV/RV SEPTUM: There is paradoxical septal motion (post-op). LA/RA SEPTUM: The atrial septum is intact. LEFT ATRIUM: LA cavity size is normal. RIGHT ATRIUM: RA cavity size is normal. PERICARDIUM: There is a trivial pericardial effusion. AORTIC VALVE: Aortic valve is bioprosthetic. The prosthetic aortic valve is well seated. Peak aortic valve velocity 2.1 cm/sec. MITRAL VALVE: There is trivial mitral regurgitation. TRICUSPID VALVE: There is trivial tricuspid regurgitation. OTHER FINDINGS: No definitive myocardial edema/inflammation by T2 mapping. Sternal wires present. Elevated R hemidiaphragm. CORE EXAM MEASUREMENTS VOLUMETRIC ANALYSIS -- . . LV Reference RV Reference +------+ +-- ----+ +---- --+ + EDV ml 177 (113-196) 146 (111-210) ml/m^2 79 (62-97) 66 (59-105) ESV ml 88 (29-74) 60 (25-85) ml/m^2 40 (15-37) 27 (13-42) CO L/min 5.92 5.78 L/min/m^2 2.65 2.59 MASS g 168 (107-184) g/m^2 75 (57-91) SV ml 88 (75-131) 86 (72-140) ml/m^2 40 (41-65) 39 (38-70) EF % 50 (58-76) 59 (53-79) '------+ +-- ----+ +---- --+ ' CARDIAC OUTPUT HR: 67 BPM LV DIMENSIONS -- WALL THICKNESS - ANTEROSEPTAL: 1 cm WALL THICKNESS - INFEROLATERAL: 0.8 cm LV ARUN: 5.9 cm LV ESD: 4.3 cm LA DIMENSIONS (LV SYSTOLE) -- DIAMETER: 4.7 cm AREA - 2 CHAMBER: 21 cm^2 LENGTH - 2 CHAMBER: 5.1 cm AREA - 4 CHAMBER: 25 cm^2 LENGTH - 4 CHAMBER: 6.6 cm VOLUME: 88 ml VOLUME NORMALIZED: 39.2 ml/m^2 RA DIMENSIONS (RV SYSTOLE) -- AREA - 4 CHAMBER: 18 cm^2 LENGTH - 4 CHAMBER: 4.4 cm EXTRACELLULAR VOLUME MEASUREMENT -- PRE-CONTRAST T1 MYOCARDIUM: 1279 msec PRE-CONTRAST T1 LV CAVITY: 1900 msec POST-CONTRAST T1 MYOCARDIUM: 560 msec POST-CONTRAST T1 LV CAVITY: 332 msec HEMATOCRIT: 41.7 % HEMATOCRIT DATE: ECV: 24 % SCAN INFO GENERAL SCANNER -- FISH NET MAKER: [employer] MODEL: [employer] PULSE SEQUENCES: SSFP cine, 2D LGE segmented, 2D LGE single-shot, Pre-contrast T1 mapping, Post-contrast T1 mapping, T2 mapping, Phase contrast imaging, Fat-water imaging, Bright-blood SSFP morphology CONTRAST AGENT -- TYPE: Gadavist GD CONCENTRATION: 1.0 M VOLUME ADMINISTERED: 16 ml DOSAGE: 0.15 mmol/kg SETUP -- DATE OF EVENT: SCAN TYPE: Clinical PATIENT TYPE: Outpatient REASON(S) FOR SCAN: Abnormal resting echo, Other symptoms, HCM (known/suspect) OTHER, DESCRIBE:: pseudoaneurysm. Status post cardiac surgery REFERRING PHYSICIAN: 1) CHELLE CONRAD L, , AUTOMATION CONTROL INTEGRATOR-VOICE ENGINEER ATTENDING PHYSICIAN: SHEBA NASCIMENTO FELLOW: Josiah Rizzo MD TECHNOLOGIST: Jose (more content not included)... Normal [facility] XR CHEST PA AND LATERAL 2 EWSon 07-06-2023 XR CHEST PA AND LATERAL 2 VIEWS EXAM: XR CHEST PA AND LATERAL 2 VIEWS, 07/06/2023 12:03 PM CLINICAL INDICATIONS: s/p cardiac surgery RELEVANT CLINICAL HISTORY: Z98.890:Status post cardiac surgery COMPARISON: May 27, 2023 FINDINGS: Unchanged midline sternal wires and aortic valve replacement. No pneumothorax. Minimal basilar volume loss. Eventration of the right hemidiaphragm. Otherwise clear lungs. Normal heart size. No pulmonary edema. Mild degenerative change of the thoracic spine. IMPRESSION: Surgical changes with minimal basilar volume loss. No pneumothorax or pleural effusion. Normal [facility] XR Chest PA and Lateralon IMPRESSION: Surgical changes with minimal basilar volume loss. No pneumothorax or pleural effusion. OLOGY EXAM: XR CHEST PA AN D LATERAL 2 VIEWS, 07/06/2023 12:03 PM CLINICAL INDICATIONS: s/p cardiac surgery RELEVANT CLINICAL HISTORY: Z98.890:Status post cardiac surgery COMPARISON: May 27, 2023 FINDINGS: Unchanged midline sternal wires and aortic valve replacement. No pneumothorax. Minimal basilar volume loss. Eventration of the right hemidiaphragm. Otherwise clear lungs. Normal heart size. No pulmonary edema. Mild degenerative change of the thoracic spine. RADIOLOGY Tai Lemus M D, PhD - 07/06/2023 EXAM: XR CHEST PA AND LATERAL 2 VIEWS, 07/06/2023 12:03 PM CLINICAL INDICATIONS: s/p cardiac surgery RELEVANT CLINICAL HISTORY: Allison:Status post cardiac surgery COMPARISON: May 27, 2023 FINDINGS: Unchanged midline sternal wires and aortic valve replacement. No pneumothorax. Minimal basilar volume loss. Eventration of the right hemidiaphragm. Otherwise clear lungs. Normal heart size. No pulmonary edema. Mild degenerative change of the thoracic spine. IMPRESSION IMPRESSION: Surgical changes with minimal basilar volume loss. No pneumothorax or pleural effusion. [facility] Radiology Study observation (narrative) [facility] XR Chest PA and LateralOrder ed By: Tai Lemus on 07-06-2023 [facility] Work Phone: CBC,PLATELETSon 05-28-2023 Hematocrit (Bld) [Volume fraction] 35.0 % Low 39.6-48.8 [facility] Comment on above: Performed By: #### S URGP #### [facility] (DEFAULT) [address] [address] Hemoglobin (Bld) [Mass/Vol] 11.5 g/dL Low 13.4-16.8 [facility] Comment on above: Performed By: #### S URGP #### [facility] (DEFAULT) [address] [address] MCV (RBC) [Entitic vol] 89.1 fL Normal 79.0-94.5 [facility] Comment on above: Performed By: #### S URGP #### [facility] (DEFAULT) [address] [address] Mean Cell Hgb 29.3 pg Normal 26.1-33.3 [facility] Comment on above: Performed By: #### S URGP #### [facility] (DEFAULT) [address] [address] Mean Cell Hgb Conc 32.9 g/dL Normal 31.9-36.5 [facility] Comment on above: Performed By: #### S URGP #### [facility] (DEFAULT) [address] [place] [address] Platelet mean volume (Bld) [Entitic vol] 11.2 fL Normal 8.7-12.3 [facility] Comment on above: Performed By: #### S URGP #### [facility] (DEFAULT) [address] [place] [address] Platelets (Bld) [#/Vol] 167 10*3/uL Normal 146-337 [facility] Comment on above: Performed By: #### S URGP #### [facility] (DEFAULT) [address] [place] [address] RBC (Bld) [#/Vol] 3.93 10*6/uL Low 4.38-5.83 [facility] Comment on above: Performed By: #### S URGP #### [facility] (DEFAULT) [address] [place] [address] RBC Distribution 14.3 % Normal 10.9-14.[address] [facility] Comment on above: Performed By: #### S URGP #### [facility] (DEFAULT) [address] [place] [address] WBC (Bld) [#/Vol] 11.11 10*3/uL High 3.73-10.10 [facility] Comment on above: Performed By: #### S URGP #### [facility] (DEFAULT) [address] [place] [address] 11285 CHEM 7 (LYTES,BUN,CREA,GLUC) on 05-28-2023 Anion gap [Moles/Vol] 15 mmol/L Normal 7-17 [facility] Comment on above: Performed By: #### G AS5L #### [facility] (DEFAULT) [address] [place] [address] 07692 Chloride [Moles/Vol] 94 mmol/L Low 98-108 [facility] Comment on above: Performed By: #### G AS5L #### [facility] (DEFAULT) [address] [address] CO2 [Moles/Vol] 31 mmol/L Normal 21-[address] [facility] Comment on above: Performed By: #### G AS5L #### [facility] (DEFAULT) [address] [address] Creatinine [Mass/Vol] 1.06 mg/dL Normal 0.70-1.30 [facility] Comment on above: Performed By: #### G AS5L #### [facility] (DEFAULT) [address] [address] GFR/1.73 sq M.predicted among non-blacks MDRD (S/P/Bld) [Vol rate/Area] 82 mL/min/{1.73_m2} Normal >=60 [facility] Comment on above: Result Comment: Repo rted eGFR is based on the CKD-EPI 2020 equation using creatinine, age, and sex. Performed By: #### G AS5L #### [facility] (DEFAULT) [address] [address] Glucose [Mass/Vol] 97 mg/dL Normal 70-99 [facility] Comment on above: Performed By: #### G AS5L #### [facility] (DEFAULT) [address] [place] [address] 75866 Osmolality [Osmolality] 289 mosm/kg Normal 278-305 [facility] Comment on above: Performed By: #### G AS5L #### [facility] (DEFAULT) [address] [address] Potassium [Moles/Vol] 4.0 mmol/L Normal 3.5-5.0 [facility] Comment on above: Performed By: #### G AS5L #### [facility] (DEFAULT) [address] [address] Sodium [Moles/Vol] 136 mmol/L Normal 135-145 [facility] Comment on above: Performed By: #### G AS5L #### [facility] (DEFAULT) [address] [place] [address] 22279 Urea nitrogen [Mass/Vol] 24 mg/dL Normal 7-25 [facility] Comment on above: Performed By: #### G AS5L #### [facility] (DEFAULT) [address] [place] [address] 36164 Urea nitrogen/Creatinine [Mass ratio] 23 mg/mg Normal [facility] Comment on above: Performed By: #### G AS5L #### [facility] (DEFAULT) [address] [place] [address] 57391 MAGNESIUMon 05-28-2023 Magnesium [Mass/Vol] 2.3 mg/dL Normal 1.6-2.6 [facility] Comment on above: Performed By: #### G AS5L #### [facility] (DEFAULT) [address] [place] [address] 97530 PT,INR,PTTon 05-28-2023 aPTT Coag (Bld) [Time] 31.9 s Normal 24.0-34.3 [facility] Comment on above: Performed By: #### S CRSB #### [facility] (DEFAULT) [address] [place] [address] 83546 INR Coag (PPP) [Relative time] 1.1 {INR} Normal 0.9-1.1 [facility] Comment on above: Performed By: #### S CRSB #### [facility] (DEFAULT) [address] [place] [address] 75226 PT Coag (PPP) [Time] 13.9 s Normal 11.9-14.2 [facility] Comment on above: Performed By: #### S CRSB #### [facility] (DEFAULT) [address] [place] [address] 52651 CBC,PLATELETSon 05-27-2023 Hematocrit (Bld) [Volume fraction] 35.6 % Low 39.6-48.8 [facility] Comment on above: Performed By: #### H EMOGC ####[facility] (DEFAULT)[address] [place] [address] Hemoglobin (Bld) [Mass/Vol] 11.6 g/dL Low 13.4-16.8 [facility] Comment on above: Performed By: #### H EMOGC ####[facility] (DEFAULT)[address] [place] [address] MCV (RBC) [Entitic vol] 90.1 fL Normal 79.0-94.5 [facility] Comment on above: Performed By: #### H EMOGC ####[facility] (DEFAULT)[address] [place] [address] Mean Cell Hgb 29.4 pg Normal 26.1-33.3 [facility] Comment on above: Performed By: #### H EMOGC ####[facility] (DEFAULT)[address] [place] [address] Mean Cell Hgb Conc 32.6 g/dL Normal 31.9-36.5 [facility] Comment on above: Performed By: #### H EMOGC ####[facility] (DEFAULT)[address] [place] [address] Mean Platelet Volume Normal [facility] Comment on above: Result Comment: Not measured Performed By: #### H EMOGC ####[facility] (DEFAULT)[address] [place] [address] Platelets (Bld) [#/Vol] 131 10*3/uL Low 146-337 [facility] Comment on above: Performed By: #### H EMOGC ####[facility] (DEFAULT)[address] [place] [address] RBC (Bld) [#/Vol] 3.95 10*6/uL Low 4.38-5.83 [facility] Comment on above: Performed By: #### H EMOGC ####[facility] (DEFAULT)[address] [place] [address] 39308 RBC Distribution 14.3 % Normal 10.9-14.[address] [facility] Comment on above: Performed By: #### H EMO ####[facility] (DEFAULT)[address] [place] [address] 87583 WBC (Bld) [#/Vol] 14.59 10*3/uL High 3.73-10.10 [facility] Comment on above: Performed By: #### H EMO ####[facility] (DEFAULT)[address] [place] [address] 42288 CHEM 7 (LYTES,BUN,CREA,GLUC) on 05-27-2023 Anion gap [Moles/Vol] 14 mmol/L Normal 7-17 [facility] Comment on above: Performed By: #### F IB, PTPTT #### [facility] (DEFAULT) [address] [place] [address] 14406 Chloride [Moles/Vol] 95 mmol/L Low 98-108 [facility] Comment on above: Performed By: #### F IB, PTPTT #### [facility] (DEFAULT) [address] [place] [address] 43755 CO2 [Moles/Vol] 30 mmol/L Normal 21-[address] [facility] Comment on above: Performed By: #### F IB, PTPTT #### [facility] (DEFAULT) [address] [place] [address] 10523 Creatinine [Mass/Vol] 1.34 mg/dL High 0.70-1.30 [facility] Comment on above: Performed By: #### F IB, PTPTT #### [facility] (DEFAULT) [address] [place] [address] 35189 GFR/1.73 sq M.predicted among non-blacks MDRD (S/P/Bld) [Vol rate/Area] 62 mL/min/{1.73_m2} Normal >=60 [facility] Comment on above: Result Comment: Repo rted eGFR is based on the CKD-EPI 2020 equation using creatinine, age, and sex. Performed By: #### F IB, PTPTT #### [facility] (DEFAULT) [address] [place] [address] 28037 Glucose [Mass/Vol] 117 mg/dL High 70-99 [facility] Comment on above: Performed By: #### F IB, PTPTT #### [facility] (DEFAULT) [address] [place] [address] 23262 Osmolality [Osmolality] 288 mosm/kg Normal 278-305 [facility] Comment on above: Performed By: #### F IB, PTPTT #### [facility] (DEFAULT) [address] [place] [address] 08104 Potassium [Moles/Vol] 4.7 mmol/L Normal 3.5-5.0 [facility] Comment on above: Performed By: #### F IB, PTPTT #### [facility] (DEFAULT) [address] [place] [address] 28311 Sodium [Moles/Vol] 134 mmol/L Low 135-145 [facility] Comment on above: Performed By: #### F IB, PTPTT #### [facility] (DEFAULT) [address] [place] [address] 98510 Urea nitrogen [Mass/Vol] 24 mg/dL Normal 7-25 [facility] Comment on above: Performed By: #### F IB, PTPTT #### [facility] (DEFAULT) [address] [place] [address] 43681 Urea nitrogen/Creatinine [Mass ratio] 18 mg/mg Normal [facility] Comment on above: Performed By: #### F IB, PTPTT #### [facility] (DEFAULT) [address] [place] [address] 62673 MAGNESIUMon 05-27-2023 Magnesium [Mass/Vol] 2.3 mg/dL Normal 1.6-2.6 [facility] Comment on above: Performed By: #### C HM7, MGO ####[facility] (DEFAULT)[address] [place] [address] 15592 PT,INR,PTTon 05-27-2023 aPTT Coag (Bld) [Time] 30.6 s Normal 24.0-34.3 [facility] Comment on above: Performed By: #### X M #### [facility] (DEFAULT) [address] [place] [address] 66287 INR Coag (PPP) [Relative time] 1.2 {INR} High 0.9-1.1 [facility] Comment on above: Performed By: #### X M #### [facility] (DEFAULT) [address] [place] [address] 49109 PT Coag (PPP) [Time] 15.2 s High 11.9-14.2 [facility] Comment on above: Performed By: #### X M #### [facility] (DEFAULT) [address] [place] [address] 94313 VITAMIN D (25-HYDROXY,TOTAL) on 05-27-2023 25-OH Vitamin D Total 20.2 ng/mL Low 30.0-100.0 [facility] Comment on above: Order Comment: Vitam in D values have been shown to be falsely decreased in lipemic samples and should be interpreted with caution. Result Comment: <10 Deficiency 10-29 Insufficiency 30-100 Optimal Level >100 Possible Toxicity Performed By: #### D 25OH ####[facility] (DEFAULT)[address] [place] [address] 34116 XR CHEST PA AND LATERALon XR CHEST PA AND LATERAL EXAM: XR CHEST P A AND LATERAL, 05/27/2023 11:33 AM CLINICAL INDICATIONS: S/P CT removal RELEVANT CLINICAL HISTORY: COMPARISON: Compared to the study performed earlier the same day at 6:49 AM FINDINGS: Unchanged midline sternal wires and aortic valve replacement. No pneumothorax. Right greater left basilar volume loss, similar to the previous study. Normal heart size. No pulmonary edema. Mild degenerative change of the thoracic spine. IMPRESSION: Stable exam without pneumothorax. Normal [facility] XR CHEST PORTABLEon 05-27-20 XR CHEST PORTABLE EXAM: XR CHEST PORTABLE, 05/27/2023 07:23 AM CLINICAL INDICATIONS: post op heart surgery RELEVANT CLINICAL HISTORY: COMPARISON: Compared to the prior study performed one day prior. FINDINGS: Stable midline sternal wires and aortic valve replacement. No pneumothorax. Some improvement in aeration of the lungs with continued right greater than left basilar volume loss. Normal heart size. No pulmonary edema. IMPRESSION: Improvement in aeration of the lungs with continued right greater left basilar volume loss. Normal [facility] CBC,PLATELETSon 05-26-2023 Hematocrit (Bld) [Volume fraction] 37.1 % Low 39.6-48.8 [facility] Comment on above: Performed By: #### X M #### [facility] (DEFAULT) [address] [address] Hemoglobin (Bld) [Mass/Vol] 11.8 g/dL Low 13.4-16.8 [facility] Comment on above: Performed By: #### X M #### [facility] (DEFAULT) [address] [address] MCV (RBC) [Entitic vol] 91.8 fL Normal 79.0-94.5 [facility] Comment on above: Performed By: #### X M #### [facility] (DEFAULT) [address] [address] Mean Cell Hgb 29.2 pg Normal 26.1-33.3 [facility] Comment on above: Performed By: #### X M #### [facility] (DEFAULT) [address] [address] Mean Cell Hgb Conc 31.8 g/dL Low 31.9-36.5 [facility] Comment on above: Performed By: #### X M #### [facility] (DEFAULT) [address] [place] [address] 47048 Platelet mean volume (Bld) [Entitic vol] 11.6 fL Normal 8.7-12.3 [facility] Comment on above: Performed By: #### X M #### [facility] (DEFAULT) [address] [place] [address] 20129 Platelets (Bld) [#/Vol] 163 10*3/uL Normal 146-337 [facility] Comment on above: Performed By: #### X M #### [facility] (DEFAULT) [address] [place] [address] 62638 RBC (Bld) [#/Vol] 4.04 10*6/uL Low 4.38-5.83 [facility] Comment on above: Performed By: #### X M #### [facility] (DEFAULT) [address] [place] [address] 56319 RBC Distribution 14.8 % High 10.9-14.[address] [facility] Comment on above: Performed By: #### X M #### [facility] (DEFAULT) [address] [place] [address] 83359 WBC (Bld) [#/Vol] 18.88 10*3/uL High 3.73-10.10 [facility] Comment on above: Performed By: #### X M #### [facility] (DEFAULT) [address] [place] [address] 50488 CHEM 7 (LYTES,BUN,CREA,GLUC) on 05-26-2023 Anion gap [Moles/Vol] 16 mmol/L Normal 7-17 [facility] Comment on above: Performed By: #### X M #### [facility] (DEFAULT) [address] [place] [address] 82988 Chloride [Moles/Vol] 96 mmol/L Low 98-108 [facility] Comment on above: Performed By: #### X M #### [facility] (DEFAULT) [address] [place] [address] 74316 CO2 [Moles/Vol] 24 mmol/L Normal 21-[address] [facility] Comment on above: Performed By: #### X M #### [facility] (DEFAULT) [address] [place] [address] 33523 Creatinine [Mass/Vol] 1.40 mg/dL High 0.70-1.30 [facility] Comment on above: Performed By: #### X M #### [facility] (DEFAULT) [address] [place] [address] 16324 GFR/1.73 sq M.predicted among non-blacks MDRD (S/P/Bld) [Vol rate/Area] 59 mL/min/{1.73_m2} Low >=60 [facility] Comment on above: Result Comment: Repo rted eGFR is based on the CKD-EPI 2020 equation using creatinine, age, and sex. Performed By: #### X M #### [facility] (DEFAULT) [address] [place] [address] 50311 Glucose [Mass/Vol] 141 mg/dL High 70-99 [facility] Comment on above: Performed By: #### X M #### [facility] (DEFAULT) [address] [place] [address] 93539 Osmolality [Osmolality] 285 mosm/kg Normal 278-305 [facility] Comment on above: Performed By: #### X M #### [facility] (DEFAULT) [address] [place] [address] 64690 Potassium [Moles/Vol] 4.6 mmol/L Normal 3.5-5.0 [facility] Comment on above: Performed By: #### X M #### [facility] (DEFAULT) [address] [place] [address] 64328 Sodium [Moles/Vol] 131 mmol/L Low 135-145 [facility] Comment on above: Performed By: #### X M #### [facility] (DEFAULT) [address] [place] [address] 90983 Urea nitrogen [Mass/Vol] 26 mg/dL High 7-25 [facility] Comment on above: Performed By: #### X M #### [facility] (DEFAULT) [address] [place] [address] 95718 Urea nitrogen/Creatinine [Mass ratio] 19 mg/mg Normal [facility] Comment on above: Performed By: #### X M #### [facility] (DEFAULT) [address] [place] [address] 68047 MAGNESIUMon 05-26-2023 Magnesium [Mass/Vol] 2.1 mg/dL Normal 1.6-2.6 [facility] Comment on above: Performed By: #### X M #### [facility] (DEFAULT) [address] [place] [address] 86682 PT,INR,PTTon 05-26-2023 aPTT Coag (Bld) [Time] 30.9 s Normal 24.0-34.3 [facility] Comment on above: Performed By: #### S URGP #### [facility] (DEFAULT) [address] [place] [address] 56898 INR Coag (PPP) [Relative time] 1.3 {INR} High 0.9-1.1 [facility] Comment on above: Performed By: #### S URGP #### [facility] (DEFAULT) [address] [place] [address] 14003 PT Coag (PPP) [Time] 16.4 s High 11.9-14.2 [facility] Comment on above: Performed By: #### S URGP #### [facility] (DEFAULT) [address] [place] [address] 41599 TYPE AND SCREENon 05-26-2023 ABO/RH(D) TYPE Positive Normal [facility] Comment on above: Performed By: #### X M #### [facility] (DEFAULT) [address] [place] [address] 95260 VITAMIN B12on 05-26-2023 Cobalamin (Vitamin B12) [Mass/Vol] 964 pg/mL High 211-911 [facility] Comment on above: Result Comment: Test ing of Methylmalonic Acid and Intrinsic Factor Blocking Antibody are recommended if clinical suspicion for pernicious anemia due to B12 deficiency is high for patients with intermediate B12 levels (211 to 400 pg/mL) to rule out spurious heterophile antibodies. Performed By: #### X M #### [facility] (DEFAULT) [address] [address] XR CHEST PORTABLEon 05-26-20 XR CHEST PORTABLE EXAM: XR CHEST PORTABLE, 05/26/2023 06:17 AM CLINICAL INDICATIONS: post op heart surgery RELEVANT CLINICAL HISTORY: COMPARISON: Compared to the prior study performed one day prior. FINDINGS: Stable midline sternal wires, heart valve replacement and anterior chest tube. Interval removal of right IJ line. No pneumothorax. Right greater left basilar volume loss, similar to the previous study. Prominent heart size with pulmonary vascular engorgement, but no arie pulmonary edema. IMPRESSION: Interval removal of the right IJ line without pneumothorax or other appreciable change. Normal [facility] ARTERIAL BLOOD GAS PLUS LACT ATEon 05-25-2023 Base Excess -1.4 mmol/L Normal -3.0-3.0 [facility] Comment on above: Performed By: #### F IB, PTPTT #### [facility] (DEFAULT) [address] [place] [address] 90102 FIO2 < Normal [facility] Comment on above: Performed By: #### F IB, PTPTT #### [facility] (DEFAULT) [address] [address] HCO3 (Bld) [Moles/Vol] 24 mmol/L Normal 22-28 [facility] Comment on above: Performed By: #### F IB, PTPTT #### [facility] (DEFAULT) [address] [place] [address] 78203 Lactate, Whole Blood 2.6 mmol/L High 0.5-1.6 [facility] Comment on above: Performed By: #### F IB, PTPTT #### [facility] (DEFAULT) [address] [place] [address] 24386 pCO2 39 mm Hg Normal 32-48 [facility] Comment on above: Performed By: #### F IB, PTPTT #### [facility] (DEFAULT) [address] [place] [address] 57520 PF Ratio > Normal [facility] Comment on above: Performed By: #### F IB, PTPTT #### [facility] (DEFAULT) [address] [place] [address] 33196 pH (Bld) 7.39 [pH] Normal 7.35-7.45 [facility] Comment on above: Performed By: #### F IB, PTPTT #### [facility] (DEFAULT) [address] [place] [address] 53596 pO2 120 mm Hg High 83-108 [facility] Comment on above: Performed By: #### F IB, PTPTT #### [facility] (DEFAULT) [address] [place] [address] 48693 sO2 99 % High 94-98 [facility] Comment on above: Performed By: #### F IB, PTPTT #### [facility] (DEFAULT) [address] [place] [address] 58450 Specimen type Nom (Spec) Arterial Normal [facility] Comment on above: Performed By: #### F IB, PTPTT #### [facility] (DEFAULT) [address] [place] [address] 76935 Base Excess -4.1 mmol/L Low -3.0-3.0 [facility] Comment on above: Performed By: #### F IB, PTPTT #### [facility] (DEFAULT) [address] [place] [address] 01722 FIO2 < Normal [facility] Comment on above: Performed By: #### F IB, PTPTT #### [facility] (DEFAULT) [address] [place] [address] 71469 HCO3 (Bld) [Moles/Vol] 22 mmol/L Normal 22-28 [facility] Comment on above: Performed By: #### F IB, PTPTT #### [facility] (DEFAULT) [address] [place] [address] 39189 Lactate, Whole Blood 3.4 mmol/L High 0.5-1.6 [facility] Comment on above: Performed By: #### F IB, PTPTT #### [facility] (DEFAULT) [address] [place] [address] 33411 pCO2 39 mm Hg Normal 32-48 [facility] Comment on above: Performed By: #### F IB, PTPTT #### [facility] (DEFAULT) [address] [place] [address] 55783 PF Ratio > Normal [facility] Comment on above: Performed By: #### F IB, PTPTT #### [facility] (DEFAULT) [address] [place] [address] 41965 pH (Bld) 7.35 [pH] Normal 7.35-7.45 [facility] Comment on above: Performed By: #### F IB, PTPTT #### [facility] (DEFAULT) [address] [place] [address] 25001 pO2 74 mm Hg Low 83-108 [facility] Comment on above: Performed By: #### F IB, PTPTT #### [facility] (DEFAULT) [address] [place] [address] 45292 sO2 95 % Normal 94-98 [facility] Comment on above: Performed By: #### F IB, PTPTT #### [facility] (DEFAULT) [address] [place] [address] 84688 Specimen type Nom (Spec) Arterial Normal [facility] Comment on above: Performed By: #### F IB, PTPTT #### [facility] (DEFAULT) [address] [place] [address] 71953 Base Excess -5.9 mmol/L Low -3.0-3.0 [facility] Comment on above: Performed By: #### G AS5L #### [facility] (DEFAULT) [address] [place] [address] 68326 FIO2 < Normal [facility] Comment on above: Performed By: #### G AS5L #### [facility] (DEFAULT) [address] [place] [address] 76915 HCO3 (Bld) [Moles/Vol] 20 mmol/L Low 22-28 [facility] Comment on above: Performed By: #### G AS5L #### [facility] (DEFAULT) [address] [place] [address] 38037 Lactate, Whole Blood 4.6 mmol/L High 0.5-1.6 [facility] Comment on above: Performed By: #### Vickie AS5L #### [facility] (DEFAULT) [address] [place] [address] 50735 pCO2 38 mm Hg Normal 32-48 [facility] Comment on above: Performed By: #### Vickie AS5L #### [facility] (DEFAULT) [address] [place] [address] 13794 PF Ratio > Normal [facility] Comment on above: Performed By: #### Vickie AS5L #### [facility] (DEFAULT) [address] [place] [address] 74437 pH (Bld) 7.33 [pH] Low 7.35-7.45 [facility] Comment on above: Performed By: #### G AS5L #### [facility] (DEFAULT) [address] [place] [address] 37349 pO2 79 mm Hg Low 83-108 [facility] Comment on above: Performed By: #### Vickie AS5L #### [facility] (DEFAULT) [address] [place] [address] 87951 sO2 96 % Normal 94-98 [facility] Comment on above: Performed By: #### G AS5L #### [facility] (DEFAULT) [address] [place] [address] 56232 Specimen type Nom (Spec) Arterial Normal [facility] Comment on above: Performed By: #### G AS5L #### [facility] (DEFAULT) [address] [place] [address] 90826 CBC,PLATELETSon 05-25-2023 Hematocrit (Bld) [Volume fraction] 41.4 % Normal 39.6-48.8 [facility] Comment on above: Performed By: #### X M #### [facility] (DEFAULT) [address] [place] [address] 68188 Hemoglobin (Bld) [Mass/Vol] 13.7 g/dL Normal 13.4-16.8 [facility] Comment on above: Performed By: #### X M #### [facility] (DEFAULT) [address] [place] [address] 75854 MCV (RBC) [Entitic vol] 89.4 fL Normal 79.0-94.5 [facility] Comment on above: Performed By: #### X M #### [facility] (DEFAULT) [address] [place] [address] 04848 Mean Cell Hgb 29.6 pg Normal 26.1-33.3 [facility] Comment on above: Performed By: #### X M #### [facility] (DEFAULT) [address] [place] [address] 24574 Mean Cell Hgb Conc 33.1 g/dL Normal 31.9-36.5 [facility] Comment on above: Performed By: #### X M #### [facility] (DEFAULT) [address] [place] [address] 82117 Platelet mean volume (Bld) [Entitic vol] 11.1 fL Normal 8.7-12.3 [facility] Comment on above: Performed By: #### X M #### [facility] (DEFAULT) [address] [place] [address] 27388 Platelets (Bld) [#/Vol] 186 10*3/uL Normal 146-337 [facility] Comment on above: Performed By: #### X M #### [facility] (DEFAULT) [address] [place] [address] 92584 RBC (Bld) [#/Vol] 4.63 10*6/uL Normal 4.38-5.83 [facility] Comment on above: Performed By: #### X M #### [facility] (DEFAULT) [address] [place] [address] 92874 RBC Distribution 14.8 % High 10.9-14.[address] [facility] Comment on above: Performed By: #### X M #### [facility] (DEFAULT) [address] [place] [address] 49679 WBC (Bld) [#/Vol] 19.37 10*3/uL High 3.73-10.10 [facility] Comment on above: Performed By: #### X M #### [facility] (DEFAULT) [address] [place] [address] 97670 CHEM 7 (LYTES,BUN,CREA,GLUC) on 05-25-2023 Anion gap [Moles/Vol] 17 mmol/L Normal 7-17 [facility] Comment on above: Order Comment: Draw lab 8 hours after arrival Performed By: #### C HM7 #### [facility] [facility] [address] [place] [address] 14119 Chloride [Moles/Vol] 102 mmol/L Normal 98-108 [facility] Comment on above: Order Comment: Draw lab 8 hours after arrival Performed By: #### C HM7 #### [facility] (DEFAULT) [address] [place] [address] 99863 CO2 [Moles/Vol] 22 mmol/L Normal 21-[address] [facility] Comment on above: Order Comment: Draw lab 8 hours after arrival Performed By: #### C HM7 #### [facility] (DEFAULT) [address] [place] [address] 19714 Creatinine [Mass/Vol] 1.20 mg/dL Normal 0.70-1.30 [facility] Comment on above: Order Comment: Draw lab 8 hours after arrival Performed By: #### C HM7 #### [facility] (DEFAULT) [address] [place] [address] 85399 GFR/1.73 sq M.predicted among non-blacks MDRD (S/P/Bld) [Vol rate/Area] 71 mL/min/{1.73_m2} Normal >=60 [facility] Comment on above: Order Comment: Draw lab 8 hours after arrival Result Comment: Repo rted eGFR is based on the CKD-EPI 2020 equation using creatinine, age, and sex. Performed By: #### C HM7 #### [facility] (DEFAULT) [address] [place] [address] 29434 Glucose [Mass/Vol] 130 mg/dL High 70-99 [facility] Comment on above: Order Comment: Draw lab 8 hours after arrival Performed By: #### C HM7 #### [facility] (DEFAULT) [address] [place] [address] 25265 Osmolality [Osmolality] 292 mosm/kg Normal 278-305 [facility] Comment on above: Order Comment: Draw lab 8 hours after arrival Performed By: #### C HM7 #### [facility] (DEFAULT) [address] [place] [address] 31047 Potassium [Moles/Vol] 4.6 mmol/L Normal 3.5-5.0 [facility] Comment on above: Order Comment: Draw lab 8 hours after arrival Performed By: #### C HM7 #### [facility] (DEFAULT) [address] [place] [address] 03945 Sodium [Moles/Vol] 136 mmol/L Normal 135-145 [facility] Comment on above: Order Comment: Draw lab 8 hours after arrival Performed By: #### C HM7 #### [facility] (DEFAULT) [address] [place] [address] 93701 Urea nitrogen [Mass/Vol] 22 mg/dL Normal 7-25 [facility] Comment on above: Order Comment: Draw lab 8 hours after arrival Performed By: #### C HM7 #### [facility] (DEFAULT) [address] [place] [address] 13386 Urea nitrogen/Creatinine [Mass ratio] 18 mg/mg Normal [facility] Comment on above: Order Comment: Draw lab 8 hours after arrival Performed By: #### C HM7 #### [facility] (DEFAULT) [address] [place] [address] 60611 Anion gap [Moles/Vol] 19 mmol/L High 7-17 [facility] Comment on above: Performed By: #### Vickie AS5L #### [facility] (DEFAULT) [address] [place] [address] 45039 Chloride [Moles/Vol] 107 mmol/L Normal 98-108 [facility] Comment on above: Performed By: #### Vickie AS5L #### [facility] (DEFAULT) [address] [place] [address] 67093 CO2 [Moles/Vol] 18 mmol/L Low 21-[address] [facility] Comment on above: Performed By: #### G AS5L #### [facility] (DEFAULT) [address] [place] [address] 11817 Creatinine [Mass/Vol] 1.19 mg/dL Normal 0.70-1.30 [facility] Comment on above: Performed By: #### G AS5L #### [facility] (DEFAULT) [address] [place] [address] 65839 GFR/1.73 sq M.predicted among non-blacks MDRD (S/P/Bld) [Vol rate/Area] 72 mL/min/{1.73_m2} Normal >=60 [facility] Comment on above: Result Comment: Repo rted eGFR is based on the CKD-EPI 2020 equation using creatinine, age, and sex. Performed By: #### G AS5L #### [facility] (DEFAULT) [address] [place] [address] 03293 Glucose [Mass/Vol] 166 mg/dL High 70-99 [facility] Comment on above: Performed By: #### G AS5L #### [facility] (DEFAULT) [address] [place] [address] 54262 Osmolality [Osmolality] 300 mosm/kg Normal 278-305 [facility] Comment on above: Performed By: #### G AS5L #### [facility] (DEFAULT) [address] [place] [address] 91005 Potassium [Moles/Vol] 5.8 mmol/L High 3.5-5.0 [facility] Comment on above: Performed By: #### G AS5L #### [facility] (DEFAULT) [address] [place] [address] 35898 Sodium [Moles/Vol] 138 mmol/L Normal 135-145 [facility] Comment on above: Performed By: #### G AS5L #### [facility] (DEFAULT) [address] [place] [address] 41425 Urea nitrogen [Mass/Vol] 22 mg/dL Normal 7-25 [facility] Comment on above: Performed By: #### G AS5L #### [facility] (DEFAULT) [address] [place] [address] 99310 Urea nitrogen/Creatinine [Mass ratio] 18 mg/mg Normal [facility] Comment on above: Performed By: #### G AS5L #### [facility] (DEFAULT) [address] [address] ECHOCARDIOGRAMon 05-25-2023 Echocardiography ? Left Ventricle: Chamber size is normal. Normal wall thickness. Normal global systolic function. Regional wall motion is suboptimally visualized but probably normal. Ejection fraction is low normal (50-55%). Diastolic function is indeterminate. ? Right Ventricle: Chamber size is normal. Normal wall thickness. Segmental wall motion is normal. Systolic function is normal. ? Left Atrium: Chamber size is normal. ? Aortic Valve: 25 mm Langford bioprosthetic valve. The valve appears well seated. There is no regurgitation or stenosis. ? Mitral Valve: Normal appearing leaflets. Leaflet mobility is normal. Trace regurgitation. No valve stenosis. ? Tricuspid Valve: Normal leaflets. Leaflet mobility is normal. Trace regurgitation. No stenosis. ? There is no pericardial effusion. ? Normal aortic dimensions to extent visualized. ? IVC not visualized. Table formatting from the original result was not included. Images from the original result were not included. Facility [facility] Patient Information Patient Name Jonas Kent Legal Sex Male Indication for Exam Priority: Urgent Dx: S/P AVR [Z95.2 (ICD-10-CM)] Comments: Echo with definity Order Question Reason for Exam s/p tissue AVR, elevated CVP, evaluate for pseudoaneurysm, effusion/tamponade or other cardiac pathology Interpretation Summary ? Left Ventricle: Chamber size is normal. Normal wall thickness. Normal global systolic function. Regional wall motion is suboptimally visualized but probably normal. Ejection fraction is low normal (50-55%). Diastolic function is indeterminate. ? Right Ventricle: Chamber size is normal. Normal wall thickness. Segmental wall motion is normal. Systolic function is normal. ? Left Atrium: Chamber size is normal. ? Aortic Valve: 25 mm Langford bioprosthetic valve. The valve appears well seated. There is no regurgitation or stenosis. ? Mitral Valve: Normal appearing leaflets. Leaflet mobility is normal. Trace regurgitation. No valve stenosis. ? Tricuspid Valve: Normal leaflets. Leaflet mobility is normal. Trace regurgitation. No stenosis. ? There is no pericardial effusion. ? Normal aortic dimensions to extent visualized. ? IVC not visualized. Findings Left Ventricle Chamber size is normal. Normal wall thickness. Normal global systolic function. Regional wall motion is normal. Ejection fraction is low normal (50-55%). Diastolic function could not be determined. Right Ventricle Chamber size is normal. Normal wall thickness. Segmental wall motion is normal. Systolic function is normal. Left Atrium Chamber size is normal. Right Atrium Chamber size is normal. Septum The atrial septum is normal. Mitral Valve Normal appearing leaflets. Leaflet mobility is normal. Trace regurgitation. No valve stenosis. Aortic Valve 25 mm Langford bioprosthetic valve. The prosthetic valve is normal. The date of implant was 05/24/23. No regurgitation. No stenosis. Mean gradient: 9 mmHg. Valve area continuity VTI: 1.45 cm2. The valve Vmax is 1.87 m/s. Tricuspid Valve Normal leaflets. Leaflet mobility is normal. Trace regurgitation. No stenosis. Pulmonic Valve Pulmonic valve not well visualized. No regurgitation. No stenosis. Aorta No dilation to extent seen. SOV: 2.76 cm. STJ: 2.44 cm. Ascendin.53 cm. Arch: 3.20 cm. Arch index: 1.39 cm/m2. Pericardium Appears normal. No pericardial effusion. IVC/SVC Unable to assess inferior vena cava. Reading Providers Reading Role Read Date Pooja Orellana MD Echo [place] 05/25/2023 Wall Scoring Score Index: 1.00 The left ventricular wall motion is normal. Left Heart Measurements LV - Systole LVIDD 5.17 cm IVS 0.98 cm LVIDS 4.02 cm PW 0.83 cm LV RWT 0.32 LV Mass Index 73 g/m2 LV EDV BP 125 mL LV ESV BP 61 mL BP EF 51 % LV stroke volume BP (ml) 64 mL LV stroke volume index BP 27.71 mL/m2 LV - Diastole MV pk E jenaro 0.9 m/s MV pk A jenaro 0.8 m/s E/A ratio 1.13 e' septal pk jenrao 0.07 m/s e' lateral pk jenaro 0.08 m/s Avg e' pk jenaro 0.08 m/s E/e' septal ratio 12.03 E/e' lateral ratio 11.73 Avg E/e' ratio 11.88 LV - HCM AV LVOT peak gradient 3 mmHg Left Atrium LA ESV SP 4CH (MOD) 44 mL LA ESV SP 2CH (MOD) 41 mL LA ESV BP (MOD) index 18 mL/m2 Right Heart Measurements RV - 2D RV basal diam 3.44 cm RV mid diam 2.61 cm RV long diam 7.22 cm RV - Doppler TAPSE 0.91 cm Right Atrium RA vol index 4CH (MOD) 19.05 mL/m2 RA area 4CH (MOD) 16.11 cm2 Great Vessels Aortic Root - End Diastolic Sinus 2.76 cm STJ 2.44 cm Ascending aorta 3.53 cm Aortic arch 3.2 cm Doppler Measurements - Aortic Valve Stenosis LVOT diameter 1.99 cm LVOT area 3.11 cm2 LVOT peak jenaro 0.89 m/s LVOT peak VTI 15.41 cm Stroke Volume 48 cm/mL (more content not included)... Abnormal [facility] IONIZED CALCIUM, WHOLE BLOOD on 05-25-2023 ICA 4.28 mg/dL Low 4.60-5.30 [facility] Comment on above: Order Comment: Draw lab 8 hours after arrival Performed By: #### G AS5L #### [facility] (DEFAULT) [address] [place] [address] 03907 MAGNESIUMon 05-25-2023 Magnesium [Mass/Vol] 2.4 mg/dL Normal 1.6-2.6 [facility] Comment on above: Performed By: #### Vickie AS5L #### [facility] (DEFAULT) [address] [place] [address] 51311 PLATELET COUNTon 05-25-2023 Platelet mean volume (Bld) [Entitic vol] 11.2 fL Normal 8.7-12.3 [facility] Comment on above: Performed By: #### G AS5L #### [facility] (DEFAULT) [address] [place] [address] 15176 Platelets (Bld) [#/Vol] 145 10*3/uL Low 146-337 [facility] Comment on above: Performed By: #### G AS5L #### [facility] (DEFAULT) [address] [place] [address] 63295 PT,INR,PTTon 05-25-2023 aPTT Coag (Bld) [Time] 24.1 s Normal 24.0-34.3 [facility] Comment on above: Performed By: #### X M #### [facility] (DEFAULT) [address] [place] [address] 67023 INR Coag (PPP) [Relative time] 1.2 {INR} High 0.9-1.1 [facility] Comment on above: Performed By: #### X M #### [facility] (DEFAULT) [address] [place] [address] 55287 PT Coag (PPP) [Time] 15.5 s High 11.9-14.2 [facility] Comment on above: Performed By: #### X M #### [facility] (DEFAULT) [address] [place] [address] 04801 XR CHEST PORTABLEon 05-25-20 XR CHEST PORTABLE EXAM: XR CHEST PORTABLE, 05/25/2023 06:57 AM CLINICAL INDICATIONS: post op CABG RELEVANT CLINICAL HISTORY: COMPARISON: Compared to the prior study performed one day prior. FINDINGS: Stable midline sternal wires, anterior chest tubes, right IJ line and aortic valve replacement. Interval removal of the endotracheal tube and nasogastric tube. No pneumothorax. Mild bibasilar volume loss, similar to the previous study. Upper normal heart size. No pulmonary edema. IMPRESSION: Interval removal of the endotracheal tube and nasogastric tube without pneumothorax or other appreciable change. Normal [facility] ABORH TYPE RECONFIRMATIONon 05-24-2023 ABO/RH(D) TYPE Positive Normal [facility] Comment on above: Performed By: #### T YPEC #### [facility] (DEFAULT) [address] [place] [address] 84428 ARTERIAL BLOOD GAS PLUS LACT ATEon 05-24-2023 Base Excess -5.3 mmol/L Low -3.0-3.0 [facility] Comment on above: Performed By: #### F LILA PTPTT #### [facility] (DEFAULT) [address] [place] [address] 30872 FIO2 < Normal [facility] Comment on above: Performed By: #### F IB, PTPTT #### [facility] (DEFAULT) [address] [place] [address] 68398 HCO3 (Bld) [Moles/Vol] 21 mmol/L Low 22-28 [facility] Comment on above: Performed By: #### F IB, PTPTT #### [facility] (DEFAULT) [address] [place] [address] 82409 Lactate, Whole Blood 4.1 mmol/L High 0.5-1.6 [facility] Comment on above: Performed By: #### F IB, PTPTT #### [facility] (DEFAULT) [address] [place] [address] 33278 pCO2 38 mm Hg Normal 32-48 [facility] Comment on above: Performed By: #### F IB, PTPTT #### [facility] (DEFAULT) [address] [place] [address] 23296 PF Ratio > Normal [facility] Comment on above: Performed By: #### F IB, PTPTT #### [facility] (DEFAULT) [address] [place] [address] 19530 pH (Bld) 7.34 [pH] Low 7.35-7.45 [facility] Comment on above: Performed By: #### F IB, PTPTT #### [facility] (DEFAULT) [address] [place] [address] 31758 pO2 84 mm Hg Normal 83-108 [facility] Comment on above: Performed By: #### F IB, PTPTT #### [facility] (DEFAULT) [address] [place] [address] 65701 sO2 98 % Normal 94-98 [facility] Comment on above: Performed By: #### F IB, PTPTT #### [facility] (DEFAULT) [address] [place] [address] 28584 Specimen type Nom (Spec) Arterial Normal [facility] Comment on above: Performed By: #### F IB, PTPTT #### [facility] (DEFAULT) [address] [place] [address] 09038 Base Excess -5.9 mmol/L Low -3.0-3.0 [facility] Comment on above: Performed By: #### F IB, PTPTT #### [facility] (DEFAULT) [address] [place] [address] 83884 FIO2 < Normal [facility] Comment on above: Performed By: #### F IB, PTPTT #### [facility] (DEFAULT) [address] [place] [address] 88922 HCO3 (Bld) [Moles/Vol] 20 mmol/L Low 22-28 [facility] Comment on above: Performed By: #### F IB, PTPTT #### [facility] (DEFAULT) [address] [place] [address] 65234 Lactate, Whole Blood 4.1 mmol/L High 0.5-1.6 [facility] Comment on above: Performed By: #### F IB, PTPTT #### [facility] (DEFAULT) [address] [place] [address] 01656 pCO2 38 mm Hg Normal 32-48 [facility] Comment on above: Performed By: #### F IB, PTPTT #### [facility] (DEFAULT) [address] [place] [address] 16416 PF Ratio > Normal [facility] Comment on above: Performed By: #### F IB, PTPTT #### [facility] (DEFAULT) [address] [place] [address] 65564 pH (Bld) 7.33 [pH] Low 7.35-7.45 [facility] Comment on above: Performed By: #### F IB, PTPTT #### [facility] (DEFAULT) [address] [place] [address] 05546 pO2 95 mm Hg Normal 83-108 [facility] Comment on above: Performed By: #### F IB, PTPTT #### [facility] (DEFAULT) [address] [place] [address] 95035 sO2 98 % Normal 94-98 [facility] Comment on above: Performed By: #### F IB, PTPTT #### [facility] (DEFAULT) [address] [place] [address] 45574 Specimen type Nom (Spec) Arterial Normal [facility] Comment on above: Performed By: #### F IB, PTPTT #### [facility] (DEFAULT) [address] [place] [address] 99732 Base Excess -5.0 mmol/L Low -3.0-3.0 [facility] Comment on above: Performed By: #### F IB, PTPTT #### [facility] (DEFAULT) [address] [place] [address] 52267 HCO3 (Bld) [Moles/Vol] 21 mmol/L Low 22-28 [facility] Comment on above: Performed By: #### F IB, PTPTT #### [facility] (DEFAULT) [address] [place] [address] 41715 Lactate, Whole Blood 4.0 mmol/L High 0.5-1.6 [facility] Comment on above: Performed By: #### F IB, PTPTT #### [facility] (DEFAULT) [address] [place] [address] 64745 pCO2 41 mm Hg Normal 32-48 [facility] Comment on above: Performed By: #### F IB, PTPTT #### [facility] (DEFAULT) [address] [place] [address] 62022 pH (Bld) 7.32 [pH] Low 7.35-7.45 [facility] Comment on above: Performed By: #### F IB, PTPTT #### [facility] (DEFAULT) [address] [place] [address] 73769 pO2 112 mm Hg High 83-108 [facility] Comment on above: Performed By: #### F IB, PTPTT #### [facility] (DEFAULT) [address] [place] [address] 05852 sO2 99 % High 94-98 [facility] Comment on above: Performed By: #### F IB, PTPTT #### [facility] (DEFAULT) [address] [place] [address] 29450 Specimen type Nom (Spec) Arterial Normal [facility] Comment on above: Performed By: #### F IB, PTPTT #### [facility] (DEFAULT) [address] [place] [address] 94926 Base Excess -1.9 mmol/L Normal -3.0-3.0 [facility] Comment on above: Performed By: #### F IB, PTPTT #### [facility] (DEFAULT) [address] [place] [address] 36064 HCO3 (Bld) [Moles/Vol] 24 mmol/L Normal 22-28 [facility] Comment on above: Performed By: #### F IB, PTPTT #### [facility] (DEFAULT) [address] [place] [address] 19788 Lactate, Whole Blood 4.3 mmol/L High 0.5-1.6 [facility] Comment on above: Performed By: #### F IB, PTPTT #### [facility] (DEFAULT) [address] [place] [address] 56075 pCO2 43 mm Hg Normal 32-48 [facility] Comment on above: Performed By: #### F IB, PTPTT #### [facility] (DEFAULT) [address] [place] [address] 54124 pH (Bld) 7.35 [pH] Normal 7.35-7.45 [facility] Comment on above: Performed By: #### F IB, PTPTT #### [facility] (DEFAULT) [address] [place] [address] 01597 pO2 87 mm Hg Normal 83-108 [facility] Comment on above: Performed By: #### F IB, PTPTT #### [facility] (DEFAULT) [address] [place] [address] 36045 sO2 98 % Normal 94-98 [facility] Comment on above: Performed By: #### F IB, PTPTT #### [facility] (DEFAULT) [address] [place] [address] 60566 Specimen type Nom (Spec) Arterial Normal [facility] Comment on above: Performed By: #### F IB, PTPTT #### [facility] (DEFAULT) [address] [place] [address] 66276 Base Excess -2.7 mmol/L Normal -3.0-3.0 [facility] Comment on above: Performed By: #### F IB, PTPTT #### [facility] (DEFAULT) [address] [place] [address] 05975 HCO3 (Bld) [Moles/Vol] 23 mmol/L Normal 22-28 [facility] Comment on above: Performed By: #### F IB, PTPTT #### [facility] (DEFAULT) [address] [place] [address] 79983 Lactate, Whole Blood 4.9 mmol/L High 0.5-1.6 [facility] Comment on above: Performed By: #### F IB, PTPTT #### [facility] (DEFAULT) [address] [place] [address] 30968 pCO2 44 mm Hg Normal 32-48 [facility] Comment on above: Performed By: #### F IB, PTPTT #### [facility] (DEFAULT) [address] [place] [address] 17968 pH (Bld) 7.33 [pH] Low 7.35-7.45 [facility] Comment on above: Performed By: #### F IB, PTPTT #### [facility] (DEFAULT) [address] [place] [address] 87004 pO2 131 mm Hg High 83-108 [facility] Comment on above: Performed By: #### F IB, PTPTT #### [facility] (DEFAULT) [address] [place] [address] 92504 sO2 99 % High 94-98 [facility] Comment on above: Performed By: #### F IB, PTPTT #### [facility] (DEFAULT) [address] [place] [address] 00846 Specimen type Nom (Spec) Arterial Normal [facility] Comment on above: Performed By: #### F IB, PTPTT #### [facility] (DEFAULT) [address] [place] [address] 90354 Base Excess -9.5 mmol/L Low -3.0-3.0 [facility] Comment on above: Order Comment: Colle ct first specimen at 30 minutes of arrival unit. Performed By: #### F IB, PTPTT #### [facility] (DEFAULT) [address] [place] [address] 93847 HCO3 (Bld) [Moles/Vol] 18 mmol/L Low 22-28 [facility] Comment on above: Order Comment: Colle ct first specimen at 30 minutes of arrival unit. Performed By: #### F IB, PTPTT #### [facility] (DEFAULT) [address] [address] Lactate, Whole Blood 6.7 mmol/L Critically high 0.5-1.6 [facility] Comment on above: Order Comment: Colle ct first specimen at 30 minutes of arrival unit. Performed By: #### F IB, PTPTT #### [facility] (DEFAULT) [address] [place] [address] 86223 pCO2 46 mm Hg Normal 32-48 [facility] Comment on above: Order Comment: Colle ct first specimen at 30 minutes of arrival unit. Performed By: #### F IB, PTPTT #### [facility] (DEFAULT) [address] [place] [address] 77438 pH (Bld) 7.21 [pH] Low 7.35-7.45 [facility] Comment on above: Order Comment: Colle ct first specimen at 30 minutes of arrival unit. Performed By: #### F IB, PTPTT #### [facility] (DEFAULT) [address] [place] [address] 88420 pO2 97 mm Hg Normal 83-108 [facility] Comment on above: Order Comment: Colle ct first specimen at 30 minutes of arrival unit. Performed By: #### F IB, PTPTT #### [facility] (DEFAULT) [address] [place] [address] 88047 sO2 97 % Normal 94-98 [facility] Comment on above: Order Comment: Colle ct first specimen at 30 minutes of arrival unit. Performed By: #### F IB, PTPTT #### [facility] (DEFAULT) [address] [place] [address] 53851 Specimen type Nom (Spec) Arterial Normal [facility] Comment on above: Order Comment: Colle ct first specimen at 30 minutes of arrival unit. Performed By: #### F IB, PTPTT #### [facility] (DEFAULT) [address] [address] CBC,PLATELETSon 05-24-2023 Hematocrit (Bld) [Volume fraction] 37.7 % Low 39.6-48.8 [facility] Comment on above: Performed By: #### F IB, PTPTT #### [facility] (DEFAULT) [address] [place] [address] 39939 Hemoglobin (Bld) [Mass/Vol] 12.2 g/dL Low 13.4-16.8 [facility] Comment on above: Performed By: #### F IB, PTPTT #### [facility] (DEFAULT) [address] [address]41 MCV (RBC) [Entitic vol] 90.6 fL Normal 79.0-94.5 [facility] Comment on above: Performed By: #### F IB, PTPTT #### [facility] (DEFAULT) [address] 85980 Mean Cell Hgb 29.3 pg Normal 26.1-33.3 [facility] Comment on above: Performed By: #### F IB, PTPTT #### [facility] (DEFAULT) [address] 26042 Mean Cell Hgb Conc 32.4 g/dL Normal 31.9-36.5 [facility] Comment on above: Performed By: #### F IB, PTPTT #### [facility] (DEFAULT) [address] [place] [address] 39102 Platelet mean volume (Bld) [Entitic vol] 10.9 fL Normal 8.7-12.3 [facility] Comment on above: Performed By: #### F IB, PTPTT #### [facility] (DEFAULT) [address] [place] [address] 52301 Platelets (Bld) [#/Vol] 191 10*3/uL Normal 146-337 [facility] Comment on above: Performed By: #### F IB, PTPTT #### [facility] (DEFAULT) [address] [place] [address] 76801 RBC (Bld) [#/Vol] 4.16 10*6/uL Low 4.38-5.83 [facility] Comment on above: Performed By: #### F IB, PTPTT #### [facility] (DEFAULT) [address] [place] [address] 24988 RBC Distribution 14.4 % High 10.9-14.[address] [facility] Comment on above: Performed By: #### F IB, PTPTT #### [facility] (DEFAULT) [address] [address] [place] [address] 84009 WBC (Bld) [#/Vol] 28.86 10*3/uL High 3.73-10.10 [facility] Comment on above: Performed By: #### F IB, PTPTT #### [facility] (DEFAULT) [address] [place] [address] 51465 Hematocrit (Bld) [Volume fraction] 36.4 % Low 39.6-48.8 [facility] Comment on above: Performed By: #### S CRSB #### [facility] (DEFAULT) [address] [place] [address] 69796 Hemoglobin (Bld) [Mass/Vol] 12.5 g/dL Low 13.4-16.8 [facility] Comment on above: Performed By: #### S CRSB #### [facility] (DEFAULT) [address] [place] [address] 14055 MCV (RBC) [Entitic vol] 88.3 fL Normal 79.0-94.5 [facility] Comment on above: Performed By: #### S CRSB #### [facility] (DEFAULT) [address] [place] [address] 93645 Mean Cell Hgb 30.3 pg Normal 26.1-33.3 [facility] Comment on above: Performed By: #### S CRSB #### [facility] (DEFAULT) [address] [place] [address] 75631 Mean Cell Hgb Conc 34.3 g/dL Normal 31.9-36.5 [facility] Comment on above: Performed By: #### S CRSB #### [facility] (DEFAULT) [address] [address] Platelet mean volume (Bld) [Entitic vol] 10.7 fL Normal 8.7-12.3 [facility] Comment on above: Performed By: #### S CRSB #### [facility] (DEFAULT) [address] [address] Platelets (Bld) [#/Vol] 179 10*3/uL Normal 146-337 [facility] Comment on above: Performed By: #### S CRSB #### [facility] (DEFAULT) [address] [address] RBC (Bld) [#/Vol] 4.12 10*6/uL Low 4.38-5.83 [facility] Comment on above: Performed By: #### S CRSB #### [facility] (DEFAULT) [address] [address] RBC Distribution 14.3 % Normal 10.9-14.[address] [facility] Comment on above: Performed By: #### S CRSB #### [facility] (DEFAULT) [address] [place] [address] 31728 WBC (Bld) [#/Vol] 24.94 10*3/uL High 3.73-10.10 [facility] Comment on above: Performed By: #### S CRSB #### [facility] (DEFAULT) [address] [place] [address] 74110 CHEM 7 (LYTES,BUN,CREA,GLUC) on 05-24-2023 Anion gap [Moles/Vol] 24 mmol/L High 7-17 [facility] Comment on above: Performed By: #### S URGP #### [facility] (DEFAULT) [address] [place] [address] 49325 Chloride [Moles/Vol] 106 mmol/L Normal 98-108 [facility] Comment on above: Performed By: #### S URGP #### [facility] (DEFAULT) [address] [place] [address] 40630 CO2 [Moles/Vol] 18 mmol/L Low 21-[address] [facility] Comment on above: Performed By: #### S URGP #### [facility] (DEFAULT) [address] [place] [address] 80174 Creatinine [Mass/Vol] 1.03 mg/dL Normal 0.70-1.30 [facility] Comment on above: Performed By: #### S URGP #### [facility] (DEFAULT) [address] [place] [address] 19949 GFR/1.73 sq M.predicted among non-blacks MDRD (S/P/Bld) [Vol rate/Area] 85 mL/min/{1.73_m2} Normal >=60 [facility] Comment on above: Result Comment: Repo rted eGFR is based on the CKD-EPI 2020 equation using creatinine, age, and sex. Performed By: #### S URGP #### [facility] (DEFAULT) [address] [place] [address] 59331 Glucose [Mass/Vol] 175 mg/dL High 70-99 [facility] Comment on above: Performed By: #### S URGP #### [facility] (DEFAULT) [address] [place] [address] 45311 Osmolality [Osmolality] 306 mosm/kg High 278-305 [facility] Comment on above: Performed By: #### S URGP #### [facility] (DEFAULT) [address] [place] [address] Potassium [Moles/Vol] 3.5 mmol/L Normal 3.5-5.0 [facility] Comment on above: Performed By: #### S URGP #### [facility] (DEFAULT) [address] [place] [address] 62958 Sodium [Moles/Vol] 144 mmol/L Normal 135-145 [facility] Comment on above: Performed By: #### S URGP #### [facility] (DEFAULT) [address] [place] [address] 85683 Urea nitrogen [Mass/Vol] 17 mg/dL Normal 7-25 [facility] Comment on above: Performed By: #### S URGP #### [facility] (DEFAULT) [address] [place] [address] 42815 Urea nitrogen/Creatinine [Mass ratio] 17 mg/mg Normal [facility] Comment on above: Performed By: #### S URGP #### [facility] (DEFAULT) [address] [place] [address] 60509 FIBRINOGEN, CLOTTABLEon 11-0 Fibrinogen-Clottable 250 mg/dL Normal 220-410 [facility] Comment on above: Result Comment: Func tional Fibrinogen (activity) levels can be affected by direct thrombin inhibitors such as heparins (>2.0 IU/ml) and dabigatran. Abnormal results should be interpreted with caution. Performed By: #### S URGP #### [facility] (DEFAULT) [address] [place] [address] 26691 Fibrinogen-Clottable 264 mg/dL Normal 220-410 [facility] Comment on above: Result Comment: Func tional Fibrinogen (activity) levels can be affected by direct thrombin inhibitors such as heparins (>2.0 IU/ml) and dabigatran. Abnormal results should be interpreted with caution. Performed By: #### F MARCOS SHARPTT #### [facility] (DEFAULT) [address] [place] [address] 49303 IONIZED CALCIUM, WHOLE BLOOD on 05-24-2023 ICA 4.31 mg/dL Low 4.60-5.30 [facility] Comment on above: Performed By: #### F IB, PTPTT #### [facility] (DEFAULT) [address] [place] [address] 85870 MAGNESIUMon 05-24-2023 Magnesium [Mass/Vol] 3.2 mg/dL High 1.6-2.6 [facility] Comment on above: Performed By: #### S URGP #### [facility] (DEFAULT) [address] [place] [address] 17118 PHOSPHATE, INORGANICon 05-24 Phosphorous 4.7 mg/dL High 2.2-4.6 [facility] Comment on above: Performed By: #### S URGP #### [facility] (DEFAULT) [address] [place] [address] 44817 PT,INR,PTTon 05-24-2023 aPTT Coag (Bld) [Time] 27.3 s Normal 24.0-34.3 [facility] Comment on above: Performed By: #### S URGP #### [facility] (DEFAULT) [address] [place] [address] 80931 INR Coag (PPP) [Relative time] 1.4 {INR} High 0.9-1.1 [facility] Comment on above: Performed By: #### S URGP #### [facility] (DEFAULT) [address] [place] [address] 74123 PT Coag (PPP) [Time] 17.0 s High 11.9-14.2 [facility] Comment on above: Performed By: #### S URGP #### [facility] (DEFAULT) [address] [place] [address] 62850 aPTT Coag (Bld) [Time] 27.6 s Normal 24.0-34.3 [facility] Comment on above: Performed By: #### F IB, PTPTT #### [facility] (DEFAULT) [address] [address] INR Coag (PPP) [Relative time] 1.5 {INR} High 0.9-1.1 [facility] Comment on above: Performed By: #### F IB, PTPTT #### [facility] (DEFAULT) [address] [address] PT Coag (PPP) [Time] 17.5 s High 11.9-14.2 [facility] Comment on above: Performed By: #### F IB, PTPTT #### [facility] (DEFAULT) [address] [place] [address] SURG PATH REQUESTon 05-24-20 Case Report [facility] Comment on above: Result Comment: Surg ical Pathology Report Case: [id number] Authorizing Provider: Ana Payne MD Collected: 05/24/2023 10:45 AM Ordering Location: [place] PERIOP Received: 05/24/2023 12:55 PM Pathologist: Andres Vale MD Specimen: SURG PATH, Aortic Valve Leaflets Performed By: #### S URGP #### [facility] (DEFAULT) [address] [place] [address] Clinical History Preop: Aortic stenos is due to bicuspid aortic valve. Dizziness. Medical History: Bicuspid aortic valve. Non-rheumatic aortic stenosis. Hyperlipidemia. BRADEN on CPAP. Tobacco use. Obesity. Degenerative disc disease. Normal [facility] Comment on above: Performed By: #### S URGP #### [facility] (DEFAULT) [address] [address] Gross Description Normal [facility] Comment on above: Result Comment: The specimen is received in one properly labeled container with the patient's name and accession number. A. The specimen is designated aortic valve leaflets and consists of a bicuspid aortic valve that is intact on one end and open on the opposite that measures 4.0 x 2.6 x 0.3 cm overall. The leaflets are fused at one end. The cusps measure 2.3 x 1.6 cm and 2.8 x 1.4 (free edge, free edge to base) cm. At the base of the valves, the valvular tissue is markedly thickened up to 0.9 cm. A 1.6 x 1.1 x 0.6 cm of bulging, large, distorting, yellow, hard calcification is identified on one of the cusps that markedly impairs valvular mobility. Otherwise, there are multifocal areas of soft orange-yellow discoloration, consistent with more mild, diffuse calcifications that occupy approximately 30% of the total cut surface. No fenestrations or vegetations are identified. RS 1 Summary of Cassettes: A1, valvular tissue with calcifications and thickening Lab Use Only: JobID [id number] Grosser for this case was: Leatha Ralph For Immediate Release to Patient's [employer] Solutionshart? Yes Performed By: #### S URGP #### [facility] (DEFAULT) [address] [place] [address] Microscopic Description A microscopic examination was performed. Normal [facility] Comment on above: Performed By: #### S URGP #### [facility] (DEFAULT) [address] [place] [address] Pathologic Diagnosis Normal [facility] Comment on above: Result Comment: A. A ortic valve leaflets, repair: Valve tissue with nodular calcifications. Performed By: #### S URGP #### [facility] (DEFAULT) [address] [id number] XR ABDOMEN 1 VIEW PORTABLEon 05-24-2023 XR ABDOMEN 1 VIEW PORTABLE EXAM: XR ABDOMEN 1 VIEW PORTABLE, 05/24/2023 15:41 PM COMPARISON: Chest radiograph from the same day CLINICAL INDICATIONS: post operative heart surgery Upon arrival to unit; FINDINGS: The distal tip and side-port of the enteric tube are visualized in the proximal stomach. Mild elevation of the right hemidiaphragm is suggested. No gross free air is identified or visceromegaly. The bowel gas pattern is nonobstructive and partially imaged. The lower abdomen and pelvis were excluded. Degenerative changes are visualized in the spine. Chest findings are seen in better details in the chest radiograph from the same day. IMPRESSION: Enteric tube in the proximal stomach. Normal [facility] XR CHEST PORTABLEon 05-24-20 XR CHEST PORTABLE EXAM: XR CHEST PORTABLE, 05/24/2023 15:41 PM COMPARISON: No prior studies available for comparison. CLINICAL INDICATIONS: postop heart surgery RELEVANT CLINICAL HISTORY: On arrival to unit.; FINDINGS: (Adequate technique) Implanted Devices: ET tube placed 4.7 cm above the jo ann. NG tube tip in the gastric fundus. Right IJ central line tip in the upper SVC. Mediastinal tube in place. Thorax: Elevated right hemidiaphragm. Low lung volumes with generalized atelectasis. No pneumothorax or definite effusion. Normal heart size with prosthetic valve and sternotomy wires. IMPRESSION: Lines tubes as described, no pneumothorax. Normal [facility] CT ANGIO TAVR EVALUATION - C ARDIOLOGYon 05-16-2023 CT ANGIO TAVR EVALUATION - CARDIOLOGY [facility] CT Report Name: JONAS KENT : 1965 Scan Date: 2023-05-15 10:59:25 Electronically signed by Kim Mcmullen 11:24:53 VITALS HEIGHT: 68.50 in (174.00 cm) WEIGHT: 245.40 lbs (111.31 kgs) BSA: 2.24 m^2 BMI: 37 kg/m^2 BP: 147 / 73 mmHg BASELINE HR: 65 BPM FINAL 1.Calcific bicuspid valvular aortic stenosis (moderate-severe) 2.Normal LV systolic function. 3.See separate report for other non-cardiac and vascular findings from CT angiography of the chest, abdomen and pelvis. CLINICAL INDICATION: 58 -year old patient with aortic valvular stenosis undergoing evaluation for Transcatheter Aortic Valve Implantation (ADEOLA). COMPARISON: No prior studies available for comparison. TECHNIQUE: The imaging was performed using a dual-source 128-slice MDCT system. It included an ECG-gated spiral acquisition from the upper ascending aorta to the cardiac undersurface for 4D assessment of the aortic valve, as well as for anatomic and functional assessment of the heart; the examination was not designed to optimize coronary artery visualization. This was followed by a non-gated spiral acquisition extending from the shoulders to the upper thighs to assess the entire thoracic aorta and abdominal aorta, as well as the extremity branches for vascular access. CONTRAST: Iodinated contrast medium injection was used intravenously to perform both the cardiac CT and the CTA CAP. Please see radiology report for the contrast dose given. FINDINGS: Left Ventricle (Anatomy): Normal LV size. LV hypertrophy Left Ventricle (Function): normal LV systolic function. LVEF is 55-60% by visual estimation. Normal regional wall motion. Right ventricle: Grossly, normal size and systolic function by visual assessment. Left atrium: Dilated LA without filling defect or thrombus. Left atrial appendage: Fully opacified without evidence of a thrombus. Right atrium: visually normal size, Interatrial septum: No evidence of ASD or PFO. Coronary artery calcification: mild as assessed by visual evaluation. Coronary Arteries: lack of nitroglycerin use and fast heart rate limiting accurate assessment for stenosis severity. Within the limitation of the study. The following statement can be reported on the coronary arteries: Left main coronary artery: normal LAD: proximal calcification , unable to assess stenosis accurately. LCx normal, dominant RCA: very small, artery. Coronary Artery Bypass Grafts: none Pericardium: normal without thickening, effusion or calcification. Other Valves: No mitral annular calcification. Normal MV leaflet motion. Pulmonary Arteries: normal sized pulmonary arteries. Main PA diameter is 24 mm. Aortic Valve: Morphology: bicuspid valve the right and non coronary cusp are a single cusp. (likely Honorio type 0). Calcification: moderate without retrograde extension into LVOT Systolic Leaflet Excursion: moderate- severely impaired AV Area by planimetry: 1.5-1.7 cm2. Aortic Valve Annulus (end-Systole 40% R-R): Perimeter ? 84.4 mm Area ? 5.50 cm2 Aortic Valve Annulus (Mid-Systole 15% R-R): Perimeter ? 86.5 mm Area ?5.72 cm2 Avg. Diameter ? 27.0 mm Max x min diameter ? 30.9x25.5 mm LVOT area: 5.79 cm2 Valve to annulus area ratio: = 1.6/5.7= 0.28 Distance to LMCA Origin ? 21 mm Distance to RCA Origin ? 14 mm Thoracic Aorta: Sino-Tubular Junction (Mid-Systole 15% R-R): Height: 20 mm Dimension: 29x28 mm Root (mid-Systole 15% R-R / Sinuses of Valsalva Level): RC Sinus: Diameter ? 31 mm LC Sinus: Diameter ? 37 mm NC Sinus: Diameter - 38 mm Mid-Ascending Segment (mid-Systole 15% R-R) , at 40 mm above the aortic annulus: 40x39 with no calcific atherosclerosis; Angulation of the aortic annulus from Horizontal : 41 degrees STUDY QUALITY: Study quality is good. SCAN INFO TEST TYPE: TAVR SCANNER FISH NET MAKER: SIEMENS SCANNER MODEL: [employer] Definition Flash DOSE REDUCTION ALGORITHM: Helical with dose modulation SCAN COVERAGE ZONE: Cardiac/Thoracic Aorta EKG GATED: Yes GENERAL CONTRAST AGENT -- CONTRAST AGENT USED?: Yes TYPE: Omnipaque 350 DOSE: (more content not included)... Normal [facility] CALCIUMon 10-24-2023 Calcium [Mass/Vol] 10.2 mg/dL Normal 8.6-10.5 [facility] Comment on above: Performed By: #### S CRSB #### [facility] (DEFAULT) [address] [place] [address] 93001 CBC AND ELECTRONIC DIFFon Basophils (Bld) [#/Vol] 0.04 10*3/uL Normal 0.00-0.09 [facility] Comment on above: Performed By: #### S CRSB #### [facility] (DEFAULT) [address] [place] [address] 55742 Basophils/100 WBC (Bld) 0.5 % Normal [facility] Comment on above: Performed By: #### S CRSB #### [facility] (DEFAULT) [address] [place] [address] 71090 DIFF STATUS Electronic Differential Normal [facility] Comment on above: Performed By: #### S CRSB #### [facility] (DEFAULT) [address] [place] [address] 27035 Eosinophils (Bld) [#/Vol] 0.12 10*3/uL Normal 0.00-0.48 [facility] Comment on above: Performed By: #### S CRSB #### [facility] (DEFAULT) [address] [place] [address] 99670 Eosinophils/100 WBC (Bld) 1.4 % Normal [facility] Comment on above: Performed By: #### S CRSB #### [facility] (DEFAULT) [address] [place] [address] 78925 Hematocrit (Bld) [Volume fraction] 45.9 % Normal 39.6-48.8 [facility] Comment on above: Performed By: #### S CRSB #### [facility] (DEFAULT) [address] [place] [address] 56815 Hemoglobin (Bld) [Mass/Vol] 15.2 g/dL Normal 13.4-16.8 [facility] Comment on above: Performed By: #### S CRSB #### [facility] (DEFAULT) [address] [address] Immature Grans % 0.2 % Normal [facility] Comment on above: Performed By: #### S CRSB #### [facility] (DEFAULT) [address] [address] Immature Grans Absolute < Normal <=0.07 [facility] Comment on above: Performed By: #### S CRSB #### [facility] (DEFAULT) [address] [address] Lymphocytes (Bld) [#/Vol] 2.67 10*3/uL Normal 0.83-3.57 [facility] Comment on above: Performed By: #### S CRSB #### [facility] (DEFAULT) [address] [address] Lymphocytes/100 WBC (Bld) 31.6 % Normal [facility] Comment on above: Performed By: #### S CRSB #### [facility] (DEFAULT) [address] [address] MCV (RBC) [Entitic vol] 89.0 fL Normal 79.0-94.5 [facility] Comment on above: Performed By: #### S CRSB #### [facility] (DEFAULT) [address] [address] Mean Cell Hgb 29.5 pg Normal 26.1-33.3 [facility] Comment on above: Performed By: #### S CRSB #### [facility] (DEFAULT) [address] [address] Mean Cell Hgb Conc 33.1 g/dL Normal 31.9-36.5 [facility] Comment on above: Performed By: #### S CRSB #### [facility] (DEFAULT) [address] [address] Monocytes (Bld) [#/Vol] 0.52 10*3/uL Normal 0.24-0.93 [facility] Comment on above: Performed By: #### S CRSB #### [facility] (DEFAULT) [address] [place] [address] 64497 Monocytes/100 WBC (Bld) 6.2 % Normal [facility] Comment on above: Performed By: #### S CRSB #### [facility] (DEFAULT) [address] [place] [address] 41276 Nucleated RBC 0.0 /100 WBC Normal <=0.[address] [facility] Comment on above: Performed By: #### S CRSB #### [facility] (DEFAULT) [address] [place] [address] 99990 Platelet mean volume (Bld) [Entitic vol] 11.0 fL Normal 8.7-12.3 [facility] Comment on above: Performed By: #### S CRSB #### [facility] (DEFAULT) [address] [place] [address] 35247 Platelets (Bld) [#/Vol] 246 10*3/uL Normal 146-337 [facility] Comment on above: Performed By: #### S CRSB #### [facility] (DEFAULT) [address] [place] [address] 33238 RBC (Bld) [#/Vol] 5.16 10*6/uL Normal 4.38-5.83 [facility] Comment on above: Performed By: #### S CRSB #### [facility] (DEFAULT) [address] [place] [address] 39149 RBC Distribution 14.3 % Normal 10.9-14.[address] [facility] Comment on above: Performed By: #### S CRSB #### [facility] (DEFAULT) [address] [place] [address] 32861 Segs + Bands Auto 60.1 % Normal [facility] Comment on above: Performed By: #### S CRSB #### [facility] (DEFAULT) [address] [place] [address] 07466 Segs + Bands,Absolute Auto 5.07 K/uL Normal 1.57-6.19 [facility] Comment on above: Performed By: #### S CRSB #### [facility] (DEFAULT) [address] [place] [address] 52049 WBC (Bld) [#/Vol] 8.44 10*3/uL Normal 3.73-10.10 [facility] Comment on above: Performed By: #### S CRSB #### [facility] (DEFAULT) [address] [place] [address] 89467 CHEM 7 (LYTES,BUN,CREA,GLUC) on 05-15-2023 Anion gap [Moles/Vol] 16 mmol/L Normal 7-17 [facility] Comment on above: Performed By: #### S CRSB #### [facility] (DEFAULT) [address] [place] [address] 41165 Chloride [Moles/Vol] 103 mmol/L Normal 98-108 [facility] Comment on above: Performed By: #### S CRSB #### [facility] (DEFAULT) [address] [place] [address] 04593 CO2 [Moles/Vol] 29 mmol/L Normal 21-[address] [facility] Comment on above: Performed By: #### S CRSB #### [facility] (DEFAULT) [address] [place] [address] 02385 Creatinine [Mass/Vol] 0.88 mg/dL Normal 0.70-1.30 [facility] Comment on above: Performed By: #### S CRSB #### [facility] (DEFAULT) [address] [place] [address] 95405 eGFR, CKD-EPI, Male > Normal >=60 [facility] Comment on above: Result Comment: Repo rted eGFR is based on the CKD-EPI 2020 equation using creatinine, age, and sex. Performed By: #### S CRSB #### [facility] (DEFAULT) [address] [place] [address] 12691 Glucose [Mass/Vol] 89 mg/dL Normal 70-99 [facility] Comment on above: Performed By: #### S CRSB #### [facility] (DEFAULT) [address] [place] [address] 10444 Osmolality [Osmolality] 300 mosm/kg Normal 278-305 [facility] Comment on above: Performed By: #### S CRSB #### [facility] (DEFAULT) [address] [place] [address] 35632 Potassium [Moles/Vol] 4.5 mmol/L Normal 3.5-5.0 [facility] Comment on above: Performed By: #### S CRSB #### [facility] (DEFAULT) [address] [place] [address] 72966 Sodium [Moles/Vol] 143 mmol/L Normal 135-145 [facility] Comment on above: Performed By: #### S CRSB #### [facility] (DEFAULT) [address] [place] [address] 43470 Urea nitrogen [Mass/Vol] 18 mg/dL Normal 7-25 [facility] Comment on above: Performed By: #### S CRSB #### [facility] (DEFAULT) [address] [place] [address] 41456 Urea nitrogen/Creatinine [Mass ratio] 20 mg/mg Normal [facility] Comment on above: Performed By: #### S CRSB #### [facility] (DEFAULT) [address] [place] [address] 03887 CREAT/GFRon 05-15-2023 Creatinine [Mass/Vol] 0.79 mg/dL 0.70 - 1.30 mg/dL [facility] GFR/1.73 sq M.predicted CKD-EPI (S/P/Bld) [Vol rate/Area] - PINF [facility] Comment on above: Reported eGFR is bas ed on the CKD-EPI 2020 equation using creatinine, age, and sex. Interpretation and review of laboratory results Normal [facility] Test performed at address of the patient encounter. [facility] CT ANGIO TAVR EVALUATIONon 1 IMPRESSION: 1. Vascular measurements are noted as above. 2. Left thyroid lobe nodule, recommend evaluation with dedicated thyroid ultrasound. Please refer to the separate cardiology report regarding the cardiac, aortic valve, aortic root, and coronary findings/measurements. OLOGY Vicki, NIDHI [place]/IMELDA - 05/15/2023 EXAM: CT Angiogram of the chest, abdomen and pelvis for TAVR evaluation, 05/15/2023 11:16 AM CLINICAL INDICATIONS: mod-sev aortic valve stenosis; COMPARISON: No prior studies available for comparison. TECHNIQUE: The imaging was performed using a dual-source 128-slice MDCT system. A non-gated CT arterial angiogram with a spiral acquisition extending from shoulders to upper thighs covering the chest, abdomen and pelvis to assess the entire thoracic and abdominal aorta, as well as extremity branches for vascular access. CONTRAST: iohexol (OMNIPAQUE) 350 MG/ML injection 1-171 mL; Route of Administration: Intravenous; Dose: 100 mL. Post-processing consisted of 3D (including MIP) and 4D assessment on an FDA-approved advanced workstation. FINDINGS: Chest Wall: Degenerative changes of thoracic spine. Mild bilateral gynecomastia. Mediastinum: Normal, without adenopathy. Calcified granulomatous lymph nodes. 3.4 cm left thyroid lobe hypodense nodule. Mary: Normal, without adenopathy Pleural Spaces: Normal, without thickening/effusion or pneumothorax Lung Parenchyma: No mass or consolidation. Elevated right hemidiaphragm, with right basilar atelectatic changes. Remote granulomatous disease. Pericardium: Normal, without thickening/effusion --------- -- Pulmonary Arteries: Normal --------- -- Thoracic Aorta: Mid-Ascending Segment (4 cm above annulus) = No atherosclerosis Minimum Diameter - 32 mm / Perpendicular Diameter - 33 mm Proximal Arch = No atherosclerosis, 34 mm Distal Arch = No atherosclerosis, 30 mm Isthmus = No atherosclerosis, 24 mm Mid-Descending Segment = No atherosclerosis, 24 mm Diaphragm Level = No atherosclerosis, 25 mm Arch Branches: Atherosclerosis of common carotid arteries, without significant stenoses. Right Innominate Artery/Subclavian Artery: No atherosclerosis No stenosis Minimum Diameter - 5.5 mm / Perpendicular Diameter - 6.6 mm No tortuosity Left Subclavian Artery: No atherosclerosis No stenosis Minimum Diameter - 6.0 mm / Perpendicular Diameter - 7.0 mm No tortuosity --------- -- Abdominal Aorta: Suprarenal Segment = No atherosclerosis, 22 mm Renal Artery Level = No atherosclerosis, 17 mm Infrarenal Segment = No atherosclerosis, 17 mm Minimum Aortic Lumen Caliber: Minimum Diameter - 15 mm / Perpendicular Diameter - 17 mm Abdominal Aortic Branches: Atherosclerosis of celiac, SMA, renal, and LINDSEY branches without significant stenoses. Right Common Iliac Artery Lumen: No atherosclerosis No stenosis Minimum Diameter - 8.3 mm / Perpendicular Diameter - 9.2 mm Mild tortuosity Left Common Iliac Artery Lumen: No atherosclerosis No stenosis Minimum Diameter - 8.1 mm / Perpendicular Diameter - 8.3 mm Mild tortuosity Right External Iliac Artery Lumen: No atherosclerosis No stenosis Minimum Diameter - 6.3 mm / Perpendicular Diameter - 7.2 mm Mild tortuosity Left External Iliac Artery Lumen: No atherosclerosis No stenosis Minimum Diameter - 7.7 mm / Perpendicular Diameter - 8.5 mm No tortuosity Right Femoral Artery Lumen: No atherosclerosis No stenosis Minimum Diameter - 7.9 mm / Perpendicular Diameter - 8.5 mm No tortuosity Left Femoral Artery Lumen: No atherosclerosis No stenosis Minimum Diameter - 7.7 mm / Perpendicular Diameter - 8.4 mm No tortuosity --------- -- Liver: Normal Biliary System: Normal Pancreas: Normal Spleen: Normal Kidneys: Normal Adrenal Glands: Normal Bowels: Colonic diverticulosis. Retroperitoneum: Normal Pelvic Structures: Normal Abdominal and Pelvic Wall: Degenerative changes of lumbosacral spine and hip joints. Small fat-containing umbilical, and left inguinal hernias. IMPRESSION IMPRESSION: 1. Vascular measurements are noted as above. 2. Left thyroid lobe nodule, recommend evaluation with dedicated thyroid ultrasound. Please refer to the separate cardiology report regarding the cardiac, aortic valve, aortic root, and coronary findings/measurements. [facility] Radiology Study observation (narrative) [facility] CT ANGIO TAVR EVALUATIONOrde red By: Kye Cohen on 05-15-2023 [facility] FIBRINOGEN, CLOTTABLEon 04-23 Fibrinogen-Clottable 531 mg/dL High 220-410 [facility] Comment on above: Result Comment: Func tional Fibrinogen (activity) levels can be affected by direct thrombin inhibitors such as heparins (>2.0 IU/ml) and dabigatran. Abnormal results should be interpreted with caution. Performed By: #### S URGP #### [facility] (DEFAULT) [address] [place] [address] 81035 HEMOGLOBIN A1Con 05-15-2023 Glucose [Mass/Vol] 108 mg/dL Normal [facility] Comment on above: Performed By: #### S URGP #### [facility] (DEFAULT) [address] [place] [address] 31424 Hemoglobin A1C HPLC 5.4 % Normal 4.7-5.6 [facility] Comment on above: Performed By: #### S URGP #### [facility] (DEFAULT) [address] [place] [address] 18498 HEPATIC FUNCTION PANELon Albumin [Mass/Vol] 4.6 g/dL Normal 3.5-5.0 [facility] Comment on above: Performed By: #### S CRSB #### [facility] (DEFAULT) [address] [place] [address] 44065 ALP [Catalytic activity/Vol] 68 U/L Normal 32-126 [facility] Comment on above: Performed By: #### S CRSB #### [facility] (DEFAULT) [address] [place] [address] 82266 ALT [Catalytic activity/Vol] 22 U/L Normal 10-52 [facility] Comment on above: Performed By: #### S CRSB #### [facility] (DEFAULT) [address] [place] [address] 36802 AST [Catalytic activity/Vol] 26 U/L Normal 10-39 [facility] Comment on above: Performed By: #### S CRSB #### [facility] (DEFAULT) [address] [place] [address] 76374 Bilirubin [Mass/Vol] 0.5 mg/dL Normal <1.5 [facility] Comment on above: Performed By: #### S CRSB #### [facility] (DEFAULT) [address] [place] [address] 33926 Bilirubin.indirect [Mass/Vol] 0.1 mg/dL Normal <0.3 [facility] Comment on above: Performed By: #### S CRSB #### [facility] (DEFAULT) [address] [place] [address] 48441 Protein [Mass/Vol] 7.9 g/dL Normal 6.4-8.3 [facility] Comment on above: Performed By: #### S CRSB #### [facility] (DEFAULT) [address] [place] [address] 72441 LIPID PANEL W CALCULATED LDL on 05-15-2023 Calculated LDL Cholesterol 147 mg/dL High 0-99 [facility] Comment on above: Result Comment: [<10 0 mg/dL: Optimal] [100-129 mg/dL: Near Optimal] [130-159 mg/dL: Borderline High] [160-189 mg/dL: High] [>189 mg/dL: Very High] Performed By: #### S CRSB #### [facility] (DEFAULT) [address] [place] [address] 52648 Cholesterol [Mass/Vol] 259 mg/dL High <200 [facility] Comment on above: Result Comment: [<20 0 mg/dL: Desirable] [200-239 mg/dL: Borderline High] [>239 mg/dL: High] Performed By: #### S CRSB #### [facility] (DEFAULT) [address] [place] [address] 93614 Cholesterol in HDL [Mass/Vol] 47 mg/dL Normal >=40 [facility] Comment on above: Result Comment: [<40 mg/dL: Low (High Risk)] [>59 mg/dL: High (Low Risk)] Performed By: #### S CRSB #### [facility] (DEFAULT) [address] [place] [address] 90296 Non HDL Cholesterol 212 mg/dL High <130 [facility] Comment on above: Performed By: #### S CRSB #### [facility] (DEFAULT) [address] [place] [address] 13273 Total Cholesterol/HDL Ratio 5.5 High <4.5 [facility] Comment on above: Performed By: #### S CRSB #### [facility] (DEFAULT) [address] [place] [address] 05602 Triglyceride [Mass/Vol] 325 mg/dL High <150 [facility] Comment on above: Result Comment: [<15 0 mg/dL: Desirable] [150-199 mg/dL: Borderline] [200-499 mg/dL: High] [>500 mg/dL: Very High] Performed By: #### S CRSB #### [facility] (DEFAULT) [address] [place] [address] 93223 MAGNESIUMon 05-15-2023 Magnesium [Mass/Vol] 1.9 mg/dL Normal 1.6-2.6 [facility] Comment on above: Performed By: #### S CRSB #### [facility] (DEFAULT) [address] [place] [address] 48478 PHOSPHATE, INORGANICon 05-15 Phosphorous 3.8 mg/dL Normal 2.2-4.6 [facility] Comment on above: Performed By: #### S CRSB #### [facility] (DEFAULT) [address] [place] [address] 96406 PREALBUMINon 05-15-2023 Prealbumin [Mass/Vol] 29 mg/dL Normal 17-34 [facility] Comment on above: Performed By: #### G AS5L #### [facility] (DEFAULT) [address] [place] [address] 08159 PT,INR,PTTon 05-15-2023 aPTT Coag (Bld) [Time] 27.8 s Normal 24.0-34.3 [facility] Comment on above: Performed By: #### S URGP #### [facility] (DEFAULT) [address] [place] [address] 28437 INR Coag (PPP) [Relative time] 0.9 {INR} Normal 0.9-1.1 [facility] Comment on above: Performed By: #### S URGP #### [facility] (DEFAULT) [address] [place] [address] 26775 PT Coag (PPP) [Time] 12.0 s Normal 11.9-14.2 [facility] Comment on above: Performed By: #### S URGP #### [facility] (DEFAULT) [address] [address] SCREEN: MRSA/MSSAon 05-15-20 23 Methicillin Resistant S. Aureus By Pcr Negative Normal Negative [facility] Comment on above: Order Comment: This test was performed using a real time PCR assay. Results should be interpreted in conjunction with other clinical and laboratory findings. A positive result does not necessarily indicate the presence of viable organism. This test should not be used as a test of cure. For E-swab specimens, this test was developed and its performance characteristics determined by the Clinical Microbiology Laboratory at [facility]. It has not been cleared or approved by the FDA.The laboratory is regulated under CLIA as qualified to perform high-complexity testing. This test is used for clinical purposes. It should not be regarded as investigational or for research. Performed By: #### S CRSB #### [facility] (DEFAULT) [address] [address] Staphylococcus Aureus By Pcr Negative Normal Negative [facility] Comment on above: Order Comment: This test was performed using a real time PCR assay. Results should be interpreted in conjunction with other clinical and laboratory findings. A positive result does not necessarily indicate the presence of viable organism. This test should not be used as a test of cure. For E-swab specimens, this test was developed and its performance characteristics determined by the [facility] at [facility]. It has not been cleared or approved by the FDA.The laboratory is regulated under CLIA as qualified to perform high-complexity testing. This test is used for clinical purposes. It should not be regarded as investigational or for research. Performed By: #### S CRSB #### [facility] (DEFAULT) [address] [address] T3 FREEon 05-15-2023 Free T3 [Mass/Vol] 3.3 pg/mL Normal 2.3-4.2 [facility] Comment on above: Performed By: #### X M #### [facility] (DEFAULT) [address] [address] T4 FREEon 05-15-2023 Free T4 [Mass/Vol] 0.94 ng/dL Normal 0.89-1.76 [facility] Comment on above: Performed By: #### X M #### [facility] (DEFAULT) [address] [address] TSHon 05-15-2023 TSH 3.939 uIU/mL Normal 0.550-4.780 [facility] Comment on above: Performed By: #### X M #### [facility] (DEFAULT) [address] [address] TYPE AND SCREEN - PREADMISSI ONon 05-15-2023 ABO/RH(D) TYPE Positive Normal [facility] Comment on above: Performed By: #### X MPO #### [facility] (DEFAULT) [address] [address] COVID-19 virus antigen assay Ordered By: Dr. Diggs on 11-23-2022 SARS-CoV-2 (COVID-19) Ag IA.rapid Ql (Resp) [facility] COVID-19 virus antigen assay Ordered By: Dr. Diggs on 08-29-2022 SARS-CoV-2 (COVID-19) Ag IA.rapid Ql (Resp) [facility] Vital Signs Date Time Vital Sign Value Performing Clinician Virginia lopez 10-31-2023 08:26-0400 Body height 175.[address] Ashu Herrera Work Phone: [facility] 10-31-2023 08:26-0400 Body mass index (BMI) [Ratio] 37.3 kg/m2 Dr. Ashu Herrera Work Phone: [facility] 10-31-2023 08:26-0400 Body weight 114.[address] Ashu Herrera Work Phone: [facility] 10-31-2023 08:26-0400 Diastolic blood pressure 76 mm[Hg] Dr. Ashu Herrera Work Phone: [facility] 10-31-2023 08:26-0400 Heart rate 60 /min Dr. Ashu Herrera Work Phone: [facility] 10-31-2023 08:26-0400 Respiratory rate 18 /min Dr. Ashu Herrera Work Phone: [facility] 10-31-2023 08:26-0400 Systolic blood pressure 113 mm[Hg] Dr. Ashu Herrera Work Phone: [facility] 10-22-2023 00:27-0400 Body weight 114.[address] Ashu Herrera Work Phone: [facility] 09-28-2023 09:26-0500 Body height 175.[address] Bro Herrera Work Phone: [facility] 09-28-2023 09:26-0500 Body weight 114.[address] Bro Herrera Work Phone: [facility] 08-31-2023 10:08-0500 Body mass index (BMI) [Ratio] 36.9 kg/m2 Dr. Bro Herrera Work Phone: [facility] 08-31-2023 10:08-0500 Heart rate 80 /min Dr. Bro Herrera Work Phone: [facility] 08-31-2023 10:08-0500 SaO2% (BldA) [Mass fraction] 94 % Dr. Bro Herrera Work Phone: [facility] 08-31-2023 09:58-0500 Body height 175.[address] Bro Herrera Work Phone: [facility] 08-31-2023 09:58-0500 Body weight 113.[address] Bro Herrera Work Phone: [facility] 08-15-2023 17:00-0500 Diastolic blood pressure 99 mm[Hg] Dr. Bro Herrrea Work Phone: [facility] 08-15-2023 17:00-0500 Heart rate 93 /min Dr. Bro Herrera Work Phone: [facility] 08-15-2023 17:00-0500 Respiratory rate 23 /min Dr. Bro Herrera Work Phone: [facility] 08-15-2023 17:00-0500 SaO2% (BldA) [Mass fraction] 95 % Dr. Bro Herrera Work Phone: [facility] 08-15-2023 17:00-0500 Systolic blood pressure 152 mm[Hg] Dr. Bro Herrera Work Phone: 5(763)369-134781 [place] [address] 08-15-2023 15:13-0500 Body mass index (BMI) [Ratio] 37.9 kg/m2 Dr. Bro Herrera Work Phone: 4(191)793-118775 [address] 08-15-2023 15:13-0500 Body weight 116.[address] Bro Herrera Work Phone: 1(210)953-466181 [place] [address] 08-15-2023 14:30-0500 Body temperature 98.6 [degF] Dr. Bro Herrera Work Phone: 2(124)757-813781 [place] [address] 08-15-2023 14:28-0500 Body height 175.[address] Bro Herrera Work Phone: 1(020)254-258875 [address] 08-01-2023 13:42-0500 Body mass index (BMI) [Ratio] 37.6 kg/m2 Dr. Bro Herrera Work Phone: 5(975)358-982381 [place] [address] 08-01-2023 13:42-0500 Body weight 115.[address] Bro Herrera Work Phone: 3(035)073-098881 [place] [address] 08-01-2023 13:42-0500 Diastolic blood pressure 87 mm[Hg] Dr. Bro Herrera Work Phone: 8(258)678-371481 [place] [address] 08-01-2023 13:42-0500 Heart rate 76 /min Dr. Bro Herrera Work Phone: 0(948)340-463081 [place] [address] 08-01-2023 13:42-0500 Respiratory rate 18 /min Dr. Bro Herrera Work Phone: 6(670)469-616781 [place] [address] 08-01-2023 13:42-0500 SaO2% (BldA) [Mass fraction] 95 % Dr. Bro Herrera Work Phone: [facility] 08-01-2023 13:42-0500 Systolic blood pressure 130 mm[Hg] Dr. Bro Herrera Work Phone: [facility] 05-15-2023 10:44-0400 Diastolic blood pressure 89 mm[Hg] Chelle Conrad AUTOMATION CONTROL INTEGRATOR-VOICE ENGINEER Work Phone: [facility] 05-15-2023 10:44-0400 Systolic blood pressure 147 mm[Hg] Chelle Conrad AUTOMATION CONTROL INTEGRATOR-VOICE ENGINEER Work Phone: [facility] 08-09-2022 13:05-0500 Body height 175.[address] Bro Herrera Work Phone: [facility] 08-09-2022 13:05-0500 Body mass index (BMI) [Ratio] 36.1 kg/m2 Dr. Bro Herrera Work Phone: [facility] 08-09-2022 13:05-0500 Body weight 111.[address] Bro Herrera Work Phone: [facility] 08-09-2022 13:05-0500 Diastolic blood pressure 85 mm[Hg] Dr. Bro Herrera Work Phone: [facility] 08-09-2022 13:05-0500 Heart rate 69 /min Dr. Bro Herrera Work Phone: [facility] 08-09-2022 13:05-0500 Respiratory rate 20 /min Dr. Bro Herrera Work Phone: [facility] 08-09-2022 13:05-0500 SaO2% (BldA) [Mass fraction] 92 % Dr. Bro Herrera Work Phone: [facility] 08-09-2022 13:05-0500 Systolic blood pressure 130 mm[Hg] Dr. Bro Herrera Work Phone: [facility] Encounters Encounter Date Encounter Type Care Provider Facility Start: 01-29-2025 ambulatory Michaelhong Mancera Facility: [facility] Start: 05-07-2024 ambulatory Iman Winston PROCUREMENT OFFICER Facili ty:[facility] Start: 05-07-2024 End: 05-07-2024 ambulatory Iman Winston NP Facility:[facility] Start: 04-30-2024 End: 04-30-2024 ambulatory Ashu Herrera Facility:[facility] Start: 10-31-2023 End: 10-31-[address] Ashu Herrera Work Phone: [facility] Work Phone: Start: 10-22-2023 End: 11-20-[address] Ashu Herrera Work Phone: [facility] Work Phone: Start: 10-22-2023 End: 11-20-[address] Ashu Herrera Work Phone: [facility]Cardiac Re[facility] Work Phone: Start: 10-15-2023 End: 10-21-[address] Bro Herrera Work Phone: [facility] Work Phone: Start: 10-15-2023 End: 10-21-[address] Bro Herrera Work Phone: [facility] Work Phone: Start: 10-15-[address] Jose Herrera Work Phone: [facility] Work Phone: Start: 10-11-2023 Non-patient / Non-visit Dr. Winnie Herrera Work Phone: [facility] Start: 10-11-2023 End: 10-11-[address] Bro Herrera Work Phone: [facility] Work Phone: Start: 10-11-2023 End: 10-11-[address] Bro Herrera Work Phone: [facility]Cardiovas[facility] Work Phone: Start: 09-19-2023 End: 09-20-[address] Bro Herrera Work Phone: [facility] Work Phone: Start: 09-19-2023 End: 09-20-[address] Bro Herrera Work Phone: [facility] Work Phone: Start: 09-03-[address] Jose Herrera Work Phone: [facility] Work Phone: Start: 08-31-2023 End: 08-31-[address] Bro Herrera Work Phone: [facility] Work Phone: Start: 08-31-2023 End: 08-31-[address] Bro Herrera Work Phone: [facility] Work Phone: Start: 08-15-2023 End: 08-15-2023 Emergency department patient visit Dr. Bro Herrera Work Phone: [facility]-Emergency Department Work Phone: Start: 08-10-2023 Non-patient / Non-visit Dr. Winnie Herrera Work Phone: [facility] Start: 08-01-2023 End: 08-01-[address] Bro Herrera Work Phone: [facility] Work Phone: Start: 07-06-2023 ambulatory VINICIUS MULLER Facility:[facility] Start: 07-06-2023 End: 07-06-2023 Subsequent hospital visit by physician Ana Payne MD Work Phone: [facility] [place] Comment on above: Arrived Start: 07-06-2023 ambulatory ASHU Trejo cility:[facility] Start: 07-06-2023 End: 07-06-2023 Subsequent hospital visit by physician Chelle Conrad AUTOMATION CONTROL INTEGRATOR-VOICE ENGINEER Work Phone: [facility] Comment on above: Arrived Start: 05-24-2023 End: 05-28-2023 Evaluation and management of inpatient [facility] Facility:[facility] Start: 05-15-2023 Encounter for other preprocedural examination ANA PAYNE Facility:[facility] Start: 05-15-2023 ambulatory ASHU paganty:[facility] Start: 05-15-2023 ambulatory ANA PAYNE Facil ity:[facility] Start: 05-15-2023 End: 05-15-2023 Subsequent hospital visit by physician Chelle Conrad AUTOMATION CONTROL INTEGRATOR-VOICE ENGINEER Work Phone: Department of Radiology Comment on above: Arrived Start: 05-09-2023 ambulatory ASHU paganty:[facility] Start: 04-10-2023 Non-patient / Non-visit Dr. Winnie Herrera Work Phone: [facility] Start: 04-09-2023 Non-patient / Non-visit Dr. Winnie Herrera Work Phone: [facility] Start: 04-09-2023 End: 04-09-[address] Bro Herrera Work Phone: [facility] Work Phone: Start: 04-09-2023 End: 04-09-[address] Bro Herrera Work Phone: [facility]Cardiovascul ar Services Work Phone: Start: 01-30-2023 End: 01-30-2023 Subsequent hospital visit by physician Chelle GILLESPIE Work Phone: Department of Radiology Comment on above: Canceled (Cancel Teresa son Not Listed - Please provide detailed information) Start: 01-30-2023 ambulatory ASHU HERRERA Fa cility:[facility] Start: 12-12-2022 ambulatory CARLOS DIGGS Facility: [facility] Start: 11-23-2022 Non-patient / Non-visit Dr. Winnie Herrera Work Phone: [facility] Start: 11-23-[address] Alessandro Herrera Work Phone: [facility] Start: 11-23-2022 End: 11-23-[address] Bro Herrera Work Phone: [facility] Work Phone: Start: 11-23-2022 End: 11-23-[address] Bro Herrera Work Phone: [facility]-Pulmonary Services/Neurology Start: 11-22-2022 Non-patient / Non-visit Dr. Winnie Herrera Work Phone: [facility] Start: 08-29-2022 End: 08-29-[address] Bro Herrera Work Phone: [facility] Start: 08-09-2022 End: 08-09-[address] Bro Herrera Work Phone: [facility] Start: 07-06-2022 Non-patient / Non-visit Dr. Winnie Herrera Work Phone: [facility] Start: 07-06-2022 End: 07-06-[address] Bro Herrera Work Phone: [facility] Work Phone: Start: 07-06-2022 End: 07-06-[address] Bro Herrera Work Phone: [facility]Cardiov[facility] Procedures Date Procedure Procedure Detail Performing Clinician Start: 08-15-2023 CT angiography of ch est with contrast Dr. Bro Herrera Work Phone: Start: 08-15-2023 Plain chest X-ray Dr. Alessandro Herrera Work Phone: Start: 08-15-2023 SARS-CoV-2, Influenz a & RSV (PCR) Dr. Bro Herrera Work Phone: Start: 07-06-2023 Radiologic exam ches t 2 views Chelle Conrad AUTOMATION CONTROL INTEGRATOR-VOICE ENGINEER Work Phone: Start: 07-06-2023 Cardiac mri w/wo con trast & further seq Chelle Conrad AUTOMATION CONTROL INTEGRATOR-VOICE ENGINEER Work Phone: Start: 07-06-2023 Blood count hematocrit Josiha Rizzo MD Work Phone: Start: 05-26-2023 Antibody screen ASCHANDLER LORA Comment on above: Performed By: #### X M #### [facility] (DEFAULT) [address] [address] Start: 05-15-2023 Antibody screen ASCHANDLER G GENO Comment on above: Performed By: #### X MPO #### [facility] (DEFAULT) [address] [address] Start: 05-15-2023 Ct heart contrast ev al cardiac structure&morph Chelle Conrad AUTOMATION CONTROL INTEGRATOR-VOICE ENGINEER Work Phone: Start: 05-15-2023 Creatinine blood Farzana Conrad AUTOMATION CONTROL INTEGRATOR-VOICE ENGINEER Work Phone: Start: 05-15-2023 Lipid 1996 panel - S oracio or Plasma Chelle Conrad AUTOMATION CONTROL INTEGRATOR-VOICE ENGINEER Work Phone: Viral antigen assay Dr. Arash Herrera Work Phone: Viral antigen assay Dr. Arash Herrera Work Phone: Plan of Treatment Date Care Activity Detail Author Start: 05-15-2028 Lipid panel LIPID SCREENING [facility] Start: 08-15-2023 [facility] Start: 08-10-2023 Patient referral [facility] Work Phone: Start: 05-24-2023 End: 05-24-2023 Rplcmt prost aortic valve open xcp homogrf/stent AVR W/ TISSUE VALVE Aortic stenosis due to bicuspid aortic valve Dizziness 05/24/2023 8:15 AM EDT [facility] Start: 05-24-2023 End: 05-24-2023 Evaluation and management of inpatient [facility] Comment on above: Aortic stenosis due to bicuspid aortic valve AVR W/ TISSUE VALVE Start: 05-15-2023 End: 05-15-2023 Patient encounter procedure Department of Radiology Start: 03-23-2023 COVID-19 VACCINE ( season) COVID-19 VACCINE () [facility] Start: 03-23-2023 Influenza vaccination INFLUENZA VACC INE (#1) [facility] Start: 02-15-2023 Evaluation and management of inpatient 02/15/2023 Hospital Encounter [facility] [address] [place] [address] nAa Payne MD [address] [place] [address] Aortic stenosis due to bicuspid aortic valve [facility] Comment on above: Aortic stenosis due to bicuspid aortic valve Start: 2017 Prostate specific antigen measurement PROSTATE CANCER SCREENING DISCUSSION [facility] Start: 2017 Zoster vaccine hzv l pavan for subcutaneous use ZOSTER (SHINGLES) VACCINE (1 of 2) [facility] Start: 2012 Screening for malign ant neoplasm of colon COLORECTAL CANCER SCREENING DISCUSSION [facility] Start: 2007 Lipid panel LIPID SCREENING [facility] Start: 1986 Third diphtheria, tetanus and acellular pertussis (DTaP) vaccination TDAP (ADULT) [facility] Start: 1982 HIV screening HIV SCREENING DISCUSSION [facility] Start: 1967 COVID-19 VACCINE (#1) COVID-19 VACCI NE (#1) [facility] Start: 1967 Hepatitis B vaccination HEP B VACCINE (1 of 3 - 3-dose series) [facility] Start: 1967 Hepatitis C screening HEPATITI S C VIRUS SCREENING [facility] Start: 1967 Tetanus vaccination TETANUS [facility] End: 05-15-[address] [facility] Comment on above: 1 Occurrences starti ng 05/15/2023 until 05/15/2023 Patient Education ED Chest Pain, Uncertain Cause [facility] Work Phone: Patient referral [facility] Work Phone: Rplcmt prost aortic valve open xcp homogrf/stent AVR W/ TISSUE VALVE Aortic stenosis due to bicuspid aortic valve Dizziness [facility] Payers Date Payer Category Payer Self-pay [id number] 2022 Private Health Insurance TANIA MCBRIDE [id number] 2022-Present [address] [place] [address] [id number] 2022 Unknown [id number] 2000 Unknown [facility] [id number] 1967 Unknown [id number] [id number] 94 1967 Unknown [id number] 2.16.840.1.214665.3.579.2.5 94 1967 Unknown [id number] 2.16.840.1.994191.3.579.2.5 94 1967 Unknown [id number] 2.16.840.1.298330.3.579.2.5 94 1967 Unknown [id number] 2.16.840.1.765812.3.579.2.5 94 1967 Unknown [id number] 2.16.840.1.701555.3.579.2.5 94 1967 Unknown [id number] 2.16.840.1.160453.3.579.2.5 94 1967 Unknown [id number] 2.16.840.1.371040.3.579.2.5 94 1967 Unknown [id number] 2.16.840.1.164444.3.579.2.5 94 1967 Unknown [id number] 2.16.840.1.322329.3.579.2.5 94 1967 Unknown [id number] 2.16.840.1.724880.3.579.2.5 94 1967 Unknown [id number] 2.16.840.1.675758.3.579.2.5 94 Unknown [id number] Unknown [id number] 2.16.840.1.828470.3.579.2.4 62 Unknown [id number] 2.16.840.1.519287.3.579.2.4 62 Unknown [id number] 2.16.840.1.609813.3.579.2.4 62 Unknown [id number] 2.16.840.1.496920.3.579.2.4 62 Social History Date Type Detail Facility Start: 04-15-2020 End: 10-31-2023 Tobacco smoking status NHIS Unknown if ever smoked [facility] Start: 04-15-2020 Spouse/ Signif icant Other [facility] Start: 02-26-2020 Chew [facility] Start: 1965 Sex Assigned At Male W [facility] Start: 12-12-2022 Tobacco smoking status NHIS Never smoked tobacco [facility] Start: 12-12-2022 Tobacco use and exposure User of smokeless tobacco [facility] History of tobacco use Chews Tobacco [facility] Start: 12-12-2022 End: 07-06-2023 Alcohol intake Current drinker of alcohol (finding) [facility] Start: 12-12-2022 End: 07-06-2023 History of Social function [facility] Start: 12-12-2022 End: 07-06-2023 Tobacco use panel [facility] Start: 12-12-2022 Tobacco Comment Approx 2 cans week [facility] Start: 12-12-2022 Alcohol Comment approx 2 drink s alcohol every 2 weeks [facility] Start: 1965 Sex Assigned At Not on file [facility] Medical Equipment Procedure Code Equipment Code Equipment Origin al Text Equipment Identifier Dates Valve Aortic Inspiris Resilia Leaflet Sewing Ring Bovine 25 - [id number] Start: 05-24-2023 Mental Status Date Assessment Result Facility 08-15-2023 Cognitive function Voice/Name [facility] Work Phone: Clinical Notes 11-22-2022 to 05-15-2023 Note Date & Type Note Facility 05-15-2023 Note EXAM: CT Angiogram o f the chest, abdomen and pelvis for TAVR evaluation, 05/15/2023 11:16 AM CLINICAL INDICATIONS: mod-sev aortic valve stenosis; COMPARISON: No prior studies available for comparison. TECHNIQUE: The imaging was performed using a dual-source 128-slice MDCT system. A non-gated CT arterial angiogram with a spiral acquisition extending from shoulders to upper thighs covering the chest, abdomen and pelvis to assess the entire thoracic and abdominal aorta, as well as extremity branches for vascular access. CONTRAST: iohexol (OMNIPAQUE) 350 MG/ML injection 1-171 mL; Route of Administration: Intravenous; Dose: 100 mL. Post-processing consisted of 3D (including MIP) and 4D assessment on an FDA-approved advanced workstation. FINDINGS: Chest Wall: Degenerative changes of thoracic spine. Mild bilateral gynecomastia. Mediastinum: Normal, without adenopathy. Calcified granulomatous lymph nodes. 3.4 cm left thyroid lobe hypodense nodule. Mary: Normal, without adenopathy Pleural Spaces: Normal, without thickening/effusion or pneumothorax Lung Parenchyma: No mass or consolidation. Elevated right hemidiaphragm, with right basilar atelectatic changes. Remote granulomatous disease. Pericardium: Normal, without thickening/effusion Pulmonary Arteries: Normal Thoracic Aorta: Mid-Ascending Segment (4 cm above annulus) = No atherosclerosis Minimum Diameter - 32 mm / Perpendicular Diameter - 33 mm Proximal Arch = No atherosclerosis, 34 mm Distal Arch = No atherosclerosis, 30 mm Isthmus = No atherosclerosis, 24 mm Mid-Descending Segment = No atherosclerosis, 24 mm Diaphragm Level = No atherosclerosis, 25 mm Arch Branches: Atherosclerosis of common carotid arteries, without significant stenoses. Right Innominate Artery/Subclavian Artery: No atherosclerosis No stenosis Minimum Diameter - 5.5 mm / Perpendicular Diameter - 6.6 mm No tortuosity Left Subclavian Artery: No atherosclerosis No stenosis Minimum Diameter - 6.0 mm / Perpendicular Diameter - 7.0 mm No tortuosity Abdominal Aorta: Suprarenal Segment = No atherosclerosis, 22 mm Renal Artery Level = No atherosclerosis, 17 mm Infrarenal Segment = No atherosclerosis, 17 mm Minimum Aortic Lumen Caliber: Minimum Diameter - 15 mm / Perpendicular Diameter - 17 mm Abdominal Aortic Branches: Atherosclerosis of celiac, SMA, renal, and LINDSEY branches without significant stenoses. Right Common Iliac Artery Lumen: No atherosclerosis No stenosis Minimum Diameter - 8.3 mm / Perpendicular Diameter - 9.2 mm Mild tortuosity Left Common Iliac Artery Lumen: No atherosclerosis No stenosis Minimum Diameter - 8.1 mm / Perpendicular Diameter - 8.3 mm Mild tortuosity Right External Iliac Artery Lumen: No atherosclerosis No stenosis Minimum Diameter - 6.3 mm / Perpendicular Diameter - 7.2 mm Mild tortuosity Left External Iliac Artery Lumen: No atherosclerosis No stenosis Minimum Diameter - 7.7 mm / Perpendicular Diameter - 8.5 mm No tortuosity Right Femoral Artery Lumen: No atherosclerosis No stenosis Minimum Diameter - 7.9 mm / Perpendicular Diameter - 8.5 mm No tortuosity Left Femoral Artery Lumen: No atherosclerosis No stenosis Minimum Diameter - 7.7 mm / Perpendicular Diameter - 8.4 mm No tortuosity Liver: Normal Biliary System: Normal Pancreas: Normal Spleen: Normal Kidneys: Normal Adrenal Glands: Normal Bowels: Colonic diverticulosis. Retroperitoneum: Normal Pelvic Structures: Normal Abdominal and Pelvic Wall: Degenerative changes of lumbosacral spine and hip joints. Small fat-containing umbilical, and left inguinal hernias. IMPRESSION: 1. Vascular measurements are noted as above. 2. Left thyroid lobe nodule, recommend evaluation with dedicated thyroid ultrasound. Please refer to the separate cardiology report regarding the cardiac, aortic valve, aortic root, and coronary findings/measurements. [facility] 05-15-2023 Note EXAM: CT Angiogram o f the chest, abdomen and pelvis for TAVR evaluation, 05/15/2023 11:16 AM CLINICAL INDICATIONS: mod-sev aortic valve stenosis; COMPARISON: No prior studies available for comparison. TECHNIQUE: The imaging was performed using a dual-source 128-slice MDCT system. A non-gated CT arterial angiogram with a spiral acquisition extending from shoulders to upper thighs covering the chest, abdomen and pelvis to assess the entire thoracic and abdominal aorta, as well as extremity branches for vascular access. CONTRAST: iohexol (OMNIPAQUE) 350 MG/ML injection 1-171 mL; Route of Administration: Intravenous; Dose: 100 mL. Post-processing consisted of 3D (including MIP) and 4D assessment on an FDA-approved advanced workstation. FINDINGS: Chest Wall: Degenerative changes of thoracic spine. Mild bilateral gynecomastia. Mediastinum: Normal, without adenopathy. Calcified granulomatous lymph nodes. 3.4 cm left thyroid lobe hypodense nodule. Mary: Normal, without adenopathy Pleural Spaces: Normal, without thickening/effusion or pneumothorax Lung Parenchyma: No mass or consolidation. Elevated right hemidiaphragm, with right basilar atelectatic changes. Remote granulomatous disease. Pericardium: Normal, without thickening/effusion Pulmonary Arteries: Normal Thoracic Aorta: Mid-Ascending Segment (4 cm above annulus) = No atherosclerosis Minimum Diameter - 32 mm / Perpendicular Diameter - 33 mm Proximal Arch = No atherosclerosis, 34 mm Distal Arch = No atherosclerosis, 30 mm Isthmus = No atherosclerosis, 24 mm Mid-Descending Segment = No atherosclerosis, 24 mm Diaphragm Level = No atherosclerosis, 25 mm Arch Branches: Atherosclerosis of common carotid arteries, without significant stenoses. Right Innominate Artery/Subclavian Artery: No atherosclerosis No stenosis Minimum Diameter - 5.5 mm / Perpendicular Diameter - 6.6 mm No tortuosity Left Subclavian Artery: No atherosclerosis No stenosis Minimum Diameter - 6.0 mm / Perpendicular Diameter - 7.0 mm No tortuosity Abdominal Aorta: Suprarenal Segment = No atherosclerosis, 22 mm Renal Artery Level = No atherosclerosis, 17 mm Infrarenal Segment = No atherosclerosis, 17 mm Minimum Aortic Lumen Caliber: Minimum Diameter - 15 mm / Perpendicular Diameter - 17 mm Abdominal Aortic Branches: Atherosclerosis of celiac, SMA, renal, and LINDSEY branches without significant stenoses. Right Common Iliac Artery Lumen: No atherosclerosis No stenosis Minimum Diameter - 8.3 mm / Perpendicular Diameter - 9.2 mm Mild tortuosity Left Common Iliac Artery Lumen: No atherosclerosis No stenosis Minimum Diameter - 8.1 mm / Perpendicular Diameter - 8.3 mm Mild tortuosity Right External Iliac Artery Lumen: No atherosclerosis No stenosis Minimum Diameter - 6.3 mm / Perpendicular Diameter - 7.2 mm Mild tortuosity Left External Iliac Artery Lumen: No atherosclerosis No stenosis Minimum Diameter - 7.7 mm / Perpendicular Diameter - 8.5 mm No tortuosity Right Femoral Artery Lumen: No atherosclerosis No stenosis Minimum Diameter - 7.9 mm / Perpendicular Diameter - 8.5 mm No tortuosity Left Femoral Artery Lumen: No atherosclerosis No stenosis Minimum Diameter - 7.7 mm / Perpendicular Diameter - 8.4 mm No tortuosity Liver: Normal Biliary System: Normal Pancreas: Normal Spleen: Normal Kidneys: Normal Adrenal Glands: Normal Bowels: Colonic diverticulosis. Retroperitoneum: Normal Pelvic Structures: Normal Abdominal and Pelvic Wall: Degenerative changes of lumbosacral spine and hip joints. Small fat-containing umbilical, and left inguinal hernias. RADIOLOGY 04-10-2023 Procedure note [facility] 11-22-2022 History and physi dmoinick note Note Date/Time November 22, 2022 6:05pm [facility] Medical Records Department [address] [place] [address] H&P Exam - Cardiology 11/22/22 1803 MR#: [id number] Acct: [id number] Name: JONAS KENT Rep #:[id number] : 1965 57 From: Carlos Diggs MD PCP: Dr. Bro Herrera MD Status: PRE CLI Location: [facility] HPI - General HPI Narrative JONAS KENT, is a 57 M who presents for a transesophageal echocardiogram. As you know he has no previous cardiac history who saw you for regular physical and wasnoted to have a heart murmur.? He has had some difficulty sleeping but that is not new and he uses a CPAP mask.? He has had some shortness of breath with exertion and occasionally coughing after eating.? As part of his work-up he underwent an echocardiographic evaluation which demonstrated an ejection fraction of 55% the aortic valve was not very well visualized but by Doppler criteria there appeared to be moderately severe aortic stenosis with a peak gradient of 59 mmHg and a mean of 39 mmHg.? He had previously had a calcium score CT scan in May 2020 demonstrating a total Agatston score of 69.5.? His lipid profile demonstrates a total cholesterol of 243 HDL of 44 and LDL of 166.? A pharmacologic myocardial perfusion stress test in April 2020 was negative.? He has had no chest pain no shortness of breath except with a severe exertion no dizziness no diaphoresis no near syncope or syncope.? His physical exam demonstrates clear lung tony regular rate and rhythm 3/6 systolic murmur noted left sternal border. [facility] Medical History BRADEN on CPAP Home Medications atorvastatin 20 mg tablet (Lipitor) 20 mg PO DAILY #90 tabs 08/09/22 [Rx Last Taken Unknown] Allergy/AdvReac Type Severity Reaction Status Date / Time No Known Allergies Allergy Verified 08/24/22 13:03 Family History Father Myocardial infarction, Onset Age: 48 Hypertension Diabetes Surgical History H/O lumbar discectomy H/O repair of right rotator cuff History of repair of anterior cruciate ligament of left knee History of tonsillectomy History of total right knee replacement Social History Smoking Status: Never smoker Smokeless tobacco user: chewing tobacco alcohol intake: never ROS Constitutional Constitutional: Denies fever(s) or weight loss Eyes Eyes: Reports systems reviewed and no addt'l complaints, except as documented ENT HEENT: Reports systems reviewed and no addt'l complaints, except as documented Cardiovascular Cardiovascular: Denies chest pain at rest, chest pain with activity, dyspnea at rest, dyspnea on exertion, edema, palpitations or paroxysmal nocturnal dyspnea Respiratory/Chest Respiratory/Chest: Denies dyspnea on exertion, productive cough, shortness of breath at rest or shortness of breath with exertion Gastrointestinal Gastrointestinal: Denies change in bowel habits, nausea, vomiting or weight changes Genitourinary Genitourinary: Denies difficulty urinating Musculoskeletal Musculoskeletal: Denies joint stiffness or muscle weakness Integumentary Integumentary: Denies lesions Neurologic Neurologic: Denies dizziness or syncope Psychiatric Psychiatric: Denies anxiety Endocrine Endocrinology: Denies excessive sweating or fatigue Hematologic/Lymphatic Hematologic/Lymphatic: Denies anemia Allergic/Immunologic Allergic/Immunologic: Denies seasonal rhinorrhea Physical Exam Const alert, oriented x3 and no apparent distress General Appearance: cooperative HEENT hearing grossly normal bilaterally Head and Scalp: atraumatic Eyes EOMs intact bilaterally Neck General: normal visual inspection Chest inspection of chest normal and palpation of chest normal Resp normal respiratory effort Auscultation: clear to auscultation bilaterally Cardio regular rate, regular rhythm, S1 normal heart sound and S2 normal heart sound Cardio Narrative: 3/6 systolic murmur noted Jugular Venous Distention: JVD GI normal to inspection, nondistended, normoactive bowel sounds Extremity normal capillary refill and no pedal edema Peripheral Pulses: Yes pulses 2+ throughout and femoral pulses present Skin no rashes or lesions noted Neuro oriented x3 and CN's II-XII intact bilaterally Psych Appearance: grossly normal and appropriate Cardiology Labs/Tests Cardiology Labs/Tests: Rhythm: EKG: ECHO: Stress Test: Cardiac Cath: PCI: CT Surgery: Holter monitor: EPS: PPM: CXR: Chest CT Scan: Assessment & Plan Assessment/Plan (1) Nonrheumatic aortic (valve) stenosis: PLAN: Plan (1) Nonrheumatic aortic (valve) stenosis: ?Status:?Acute ?Plan: He appears to have a history of severe aortic stenosis.? I suspect that the above may be a bicuspid valve and therefore I will recommend that we perform a STACEY to evaluate the above.? Depending on the findings further recommendations will be made.? In addition due to his elevated calcium score I would suggest that we add Lipitor 20 mg a day to his regimen 11/22/22 180 <Electronically signed by Carlos Diggs MD> Cosigner Signature (if applicable): CC: Dr. Bro Herrera MD; Dr. Carlos Diggs MD~ Signed [facility] Work Phone: Evaluation noteNo assessment information available [facility] Work Phone: Evaluation note* Diagnosis Onset Date Resolution Status Nonrheumatic aortic (valve) stenosis acute Nonrheumatic aortic (valve) stenosis acute [facility] Work Phone: Evaluation note* Diagnosis Aortic stenosis due to bicuspid aortic valve BRADEN (obstructive sleep apnea) Obstructive sleep apnea (adult) (pediatric) Heart murmur Undiagnosed cardiac murmurs Aortic stenosis due to bicuspid aortic valve Dizziness Dizziness and giddiness [facility] Status post cardiac surgery [facility] Diagnosis Abnormal finding on echocardiogram Nonspecific (abnormal) findings on radiological and other examination of other intrathoracic organs Status post cardiac surgery [facility] Diagnosis Onset Date Resolution Status H/O aortic valve replacement acute [facility] Work Phone: Evaluation note* Diagnosis Onset Date Resolution Status H/O aortic valve replacement acute H/O aortic valve replacement acute [facility] Work Phone: Hospital Discharge instructions Additional Instructions Follow-up with your doctor. Follow-up with your card thoracic urologist or card urgent. With your symptoms of exertional dyspnea he need to have this reevaluated. Your labs today were unremarkable and your CAT scan showed no blood clot.[facility] Work Phone: Chief Complaint and Reason for Visit Chief Complaint MURMUR Chief Complaint heart murmur/ mod- s evere aortic stenosis MURMUR MURMER MURMER Reason for Visit Nonrheumatic aortic (valve) stenosis Nonrheumatic aortic (valve) stenosis Chief Complaint PRE OP DIZZINESS PRE OP DIZZINESS Chief Complaint S/P [facility] 05/28 TAVR ( SCANNED) chest pain, SOB Reason for Visit H/O aortic valve rep lacement Chief Complaint S/P [facility] 05/28 TAVR ( SCANNED) chest pain, SOB heart valve replacement heart valve replacement Reason for Visit H/O aortic valve rep lacement Chief Complaint S/P [facility] 05/28 TAVR ( SCANNED) chest pain, SOB heart valve replacement heart valve replacement CHEST PAIN heart valve replacement Reason for Visit H/O aortic valve rep lacement Chief Complaint S/P [facility] 05/28 TAVR ( SCANNED) chest pain, SOB heart valve replacement heart valve replacement CHEST PAIN heart valve replacement heart valve replacement 3 M FU Reason for Visit H/O aortic valve rep lacement H/O aortic valve replacement Advance Directives No Advanced Directives Records Found Advance Directive Response Recorded Date/ Time Living Will No April 15, 2020 9:58am Power of Mud Grinder No March 9:58am Advance Directive Response Recorded Date/ Time Living Will No April 15, 2020 10:58am Power of Mud Grinder No March 10:58am Advance Directive Response Recorded Date/ Time Advance Directives No December 08 7:06am Living Will No December 08, 2022 7 :06am Power of Mud Grinder No December 08, 2022 7:06am Latest Code Status on File Code Status Date Activated Date Inactivated Comments Full Code 05/24/2023 1:43 PM Latest Code Status on File Code Status Date Activated Date Inactivated Comments Full Code 05/24/2023 1:43 PM Advance Directive Response Recorded Date/ Time Advance Directives No December 08 6:06am Living Will No August 15 2:32pm Power of Mud Grinder No August 15, 2023 2:32pm Advance Directive Response Recorded Date/ Time Advance Directives on File No 2023 9:52am Advance Directives No December 08 6:06am Living Will No August 31 9:52am Power of Mud Grinder No August 31, 2023 9:52am Advance Directive Response Recorded Date/ Time Advance Directives on File No 2023 10:52am Advance Directives No December 08 7:06am Living Will No August 31 10:52am Power of Mud Grinder No August 31, 2023 10:52am Family History No Family History Records Found Relationship Condition Age at Onset Recorded Date/T romero father Myocardial infarction 48 Hypertension Unknown Diabetes mellitus Unknown Reason for Referral Specialty Diagnoses / Procedures Referred By Manuela t Referred To Contact Diagnoses Aortic stenosis due to bicuspid aortic valve BRADEN (obstructive sleep apnea) Heart murmur Procedures CT ANGIO TAVR EVALUATION - CARDIOLOGY WY CT ANGIO ABD&PLVIS CNTRST MTRL W/WO CNTRST IMGES WY RECON, CTA FOR SURG PLAN WY CHG CT ANGIO HRT CORNRY ART/BYPASS GRFTS CONTRST 3D POST Chelle Conrad, AUTOMATION CONTROL INTEGRATOR-VOICE ENGINEER [address] [place] [address] Referral ID Status Reason Start Date Expiration Date V [facility] Requested Visits Authorized [id number] New Request 05/15/2023 06/08/2024 1 1 Specialty Diagnoses / Procedures Referred By Manuela t Referred To Contact Diagnoses Aortic stenosis due to bicuspid aortic valve BRADEN (obstructive sleep apnea) Heart murmur Procedures CT ANGIO TAVR EVALUATION WY CT ANGIO ABD&PLVIS CNTRST MTRL W/WO CNTRST IMGES WY RECON, CTA FOR SURG PLAN WY CHG CT ANGIO HRT CORNRY ART/BYPASS GRFTS CONTRST 3D POST Chelle Conrad, AUTOMATION CONTROL INTEGRATOR-VOICE ENGINEER [address] [place] [address] Referral ID Status Reason Start Date Expiration Date Visits Re quested Visits Authorized [id number] Closed 12/12/2022 01/06/2024 1 1 Specialty Diagnoses / Procedures Referred By Manuela t Referred To Contact Diagnoses Abnormal finding on echocardiogram Status post cardiac surgery Procedures MRI CARDIAC WITH CONTRAST W/VELOCITY FLOW MAP MRI CARDIAC WITH CONTRAST WY CARDIAC MRI MORPHOLOGY & FUNCTION W/O CONTRAST WY CHG CARDIAC MRI FOR VELOCITY FLOW MAPPING Chelle Conrad, AUTOMATION CONTROL INTEGRATOR-VOICE ENGINEER [address] [place] [address] Referral ID Status Reason Start Date Expiration Date Visits Re quested Visits Authorized [id number] Closed 05/31/2023 06/24/2024 1 1 Summary Purpose Additional Source Comments Goals (unrecognized section and content) Goals may be documented in a n alternate sectionGoals may be documented in an alternate sectionGoals may be documented in an alternate sectionGoals may be documented in an alternate sectionGoals may be documented in an alternate sectionGoals may be documented in an alternate sectionGoals may be documented in an alternate sectionGoals may be documented in an alternate sectionGoals may be documented in an alternate section Care Teams (unrecognized sec tion and content) Team Status: Active Member Role Status Dates No Primary Care Physician Family Provider Active Dr. Bro Herrera MD Primary Care Provider Activ e Team Status: Inactive Member Role Status Dates Dr. Bro Herrera MD Primary Care Provider, Refe rring Provider Active Dr. Carlos Diggs MD Attending Provider Active Team Status: Active Member Role Status Dates Dr. Bro Herrera MD Primary Care Provider Activ e Dr. Carlos Diggs MD Attending Provider, Other Provide r Active Team Status: Active Member Role Status Dates Dr. Bro Herrera MD Primary Care Provider Activ e Dr. Carlos Diggs MD Attending Provider Active Team Status: Inactive Member Role Status Dates Dr. Bro Herrera MD Primary Care Provider Activ e Dr. Carlos Diggs MD Attending Provider, Referring Pro vider Active Flexible Nanny Relationship Specialty Start Date End Date Ashu Herrera MD [address] [place] [address] PCP - General Family Medicine 12/12/22 Carlos Diggs MD [address] [facility] [place] [phone] Cardiovascular Disease 12/11/22 Team Status: Active Member Role Status Dates Dr. Bro Herrera MD Primary Care Provider Activ e Dr. Brice Sanon MD Attending Provider Active Team Status: Active Member Role Status Dates Dr. Bro Herrera MD Primary Care Provider Activ OSBALDO Rahman Referring Provider, Other Provider Acti ve Dr. Rancho Solomon DO Attending Provider Active Team Status: Inactive Member Role Status Dates Dr. Bro Herrera MD Primary Care Provider Activ OSBALDO Rahman Attending Provider, Referring Provider Active Flexible Nanny Relationship Specialty Start Date End Date Ashu Herrera MD [address] [place], [place] [id number] PCP - General Family Medicine 12/12/22 Carlos Diggs MD [address] [facility] [place] [phone] Cardiovascular Disease 12/11/22 Flexible Nanny Relationship Specialty Start Date End Date Ashu Herrera MD [address] [place], [place] [id number] PCP - General Family Medicine 12/12/22 Carlos Diggs MD [address] [place] [phone] Cardiovascular Disease 12/11/22 Flexible Nanny Relationship Specialty Start Date End Date Ashu Herrera MD [address] [place], [place] [id number] PCP - General Family Medicine 12/12/22 Carlos Diggs MD [address] [facility] [place] [phone] Cardiovascular Disease 12/11/22 Team Status: Inactive Member Role Status Dates Dr. Bro Herrera MD Primary Care Provider, Refe rring Provider Active Iman Winston PROCUREMENT OFFICER, PROCUREMENT OFFICER-C Attending Provider Active Team Status: Inactive Member Role Status Dates Dr. Bro Herrera MD Primary Care Provider Activ e Dr. Edgardo Mendoza MD Emergency Provider Active Team Status: Inactive Member Role Status Dates Dr. Bro Herrera MD Primary Care Provider Activ e Dr. Edgardo Mendoza MD Attending Provider, Emergency Pro vider Active Team Status: Active Member Role Status Dates Dr. Bro Herrera MD Primary Care Provider Activ e Dr. Carlos Diggs MD Attending Provider, Referring Pro vider Active Team Status: Active Member Role Status Dates No Primary Care Physician Family Provider Active Dr. Ashu Herrera MD Primary Care Provider Acti ve Team Status: Inactive Member Role Status Dates Dr. Ashu Herrera MD Primary Care Provider, Ref erring Provider Active Iman Winston PROCUREMENT OFFICER, PROCUREMENT OFFICER-C Attending Provider Active Team Status: Active Member Role Status Dates Dr. Ashu Herrera MD Primary Care Provider Acti ve Dr. Carlos Diggs MD Attending Provider Active Team Status: Inactive Member Role Status Dates Dr. Ashu Herrera MD Primary Care Provider Acti ve Dr. Carlos Diggs MD Attending Provider, Referring Pro vider Active Team Status: Inactive Member Role Status Dates Dr. Ashu Herrera MD Primary Care Provider Acti ve Dr. Edgardo Mendoza MD Attending Provider, Emergency Pro vider Active Reason for Visit (unrecogniz ed section and content) Specialty Diagnoses / Procedures Referred By Manuela t Referred To Contact Diagnoses Aortic stenosis due to bicuspid aortic valve BRADEN (obstructive sleep apnea) Heart murmur Procedures CT ANGIO TAVR EVALUATION WY CT ANGIO ABD&PLVIS CNTRST MTRL W/WO CNTRST IMGES WY RECON, CTA FOR SURG PLAN WY CHG CT ANGIO HRT CORNRY ART/BYPASS GRFTS CONTRST 3D POST Chelle Conrad, AUTOMATION CONTROL INTEGRATOR-VOICE ENGINEER [address] [place] [address] Referral ID Status Reason Start Date Expiration Date V isits Requested Visits Authorized [id number] Auth Not Needed 12/12/2022 01/06/2024 1 1 Referral ID Status Reason Start Date Expiration Date Visits Re quested Visits Authorized [id number] Closed 12/12/2022 01/06/2024 1 1 Specialty Diagnoses / Procedures Referred By Contac t Referred To Contact Diagnoses Abnormal finding on echocardiogram Status post cardiac surgery Procedures MRI CARDIAC WITH CONTRAST W/VELOCITY FLOW MAP MRI CARDIAC WITH CONTRAST WY CARDIAC MRI MORPHOLOGY & FUNCTION W/O CONTRAST WY CHG CARDIAC MRI FOR VELOCITY FLOW MAPPING Chelle Conrad, AUTOMATION CONTROL INTEGRATOR-VOICE ENGINEER [address] [place] [phone] Referral ID Status Reason Start Date Expiration Date Visits Re quested Visits Authorized [id number] Closed 05/31/2023 06/24/2024 1 1 (unrecognized sect ion and content) No Status Records FoundNo Status Records Found INFORMATION SOURCE (unrecogn ized section and content) DATE CREATED AUTHOR 07/08/2023 [facility] DATE CREATED AUTHOR AUTHOR'S CR ARMENTAION 01/29/2025 [facility] FOR RECORDS PERTAINING TO PATIENTS WHO ARE OR HAVE BEEN ENROLLED IN A CHEMICAL DEPENDENCY/SUBSTANCEABUSE PROGRAM, SOME INFORMATION MAY BE OMITTED. This clinical summary was aggregated from multiple sources. Caution should be exercised in using it in the provision of clinical care. This summary normalizes information from multiple sources, and as a consequence, information in this document may materially change the coding, format and clinical context of patient data. In addition, data may be omitted in some cases. CLINICAL DECISIONS SHOULD BE BASED ON THE PRIMARY CLINICAL RECORDS. [employer] provides no warranty or guarantee of the accuracy or completeness of information in this document.
[2025-07-02 09:39] LABS: AST(SGOT) 28 U/L (<=37); Alanine Aminotransfer ALT/SGPT 31 U/L (<=46); Albumin, Serum 4.4 g/dL (3.5-5.0); Alkaline Phosphatase 91 U/L (40-129); Anion Gap 12 (5-15); BUN 19 mg/dL (4-19); BUN/Creat Ratio 24.6 RATIO (10-20); Calcium,Total 9.5 mg/dL (7.6-11.0); Carbon Dioxide 23.2 mmol/L (21.0-32.0); Chloride 106 mmol/L (98-108); Cholesterol 150 mg/dL (<=200); Globulin 3.1 g/dL (2.2-4.2); Glucose 106 mg/dL (70-99); Low Density Lipoprotein Calc. 80 mg/dL; PSA,Total - Annual Screen 1.26 ng/mL (0.02-4.00); Potassium 4.1 mmol/L (3.3-5.1); Triglycerides 121 mg/dL; Very Low Density Lipoprotein 24 mg/dL (5-40); cholesterol:hdl ratio screen 3.13
== END | disposition home or self-care (01) ==
LOC: LAB 08:33
PROVIDERS: PCP Family Medicine; Referring Provider Family Medicine; Visit Provider Family Medicine
DX: I10 Essential (primary) hypertension (principal); Z12.5 Encounter for screening for malignant neoplasm of prostate; I25.10 Atherosclerotic heart disease of native coronary artery without angina pectoris
CPT/HCPCS: 36415; 80053; 80061; 84153; G0103